=== PATIENT | female | born 1980 | race Caucasian/White ===

== ENCOUNTER 2021-11-29 11:21 | Outpatient (REF) | payer OTHER, SELFPAY | END 2021-11-29 11:22 | disposition home or self-care (01) | LOC: HO.LNP 11:21 | PROVIDERS: Visit Provider Internal Medicine | DX: N39.0 Urinary tract infection, site not specified (principal) | CPT/HCPCS: 87086 ==

== ENCOUNTER 2022-01-21 12:51 | Outpatient (REF) | payer OTHER, SELFPAY ==
[2022-01-21 13:19] LABS: Binax Internal Control QC Valid; Binax Now Covid-19 Ag Negative (Negative)
== END 2022-01-21 12:52 | disposition home or self-care (01) ==
LOC: HO.HMGCLDS 12:51
PROVIDERS: Visit Provider Physician Assistant Medical
DX: Z20.822 Contact with and (suspected) exposure to COVID-19 (principal)
CPT/HCPCS: 87811; C9803

== ENCOUNTER 2024-08-28 11:43 | Outpatient (AMB) | payer OTHER, MEDICAID, SELFPAY ==
--- NOTE | 2024-08-28 12:47 | MHC.OFFWIV ---
Intake Vital Signs 08/28/24 12:54 BP 122/84 Blood Pressure Location Lt brachial Position Sitting Pulse 68 Pulse Source Pulse Oximeter Pulse Oximetry (%) 97 Oxygen Delivery Method Room Air Intake Visit Reasons: EP-chest pain,sob cough,sinus [id number] Intake Note: Patient here for chest pain/tightness, bilat ear pain, cough, sinus pressure and body aches which started Monday. Patient Tobacco Use Status: Never used Tobacco Allergies glatiramer (copolymer 1) [Copaxone] Allergy (Unknown, Verified 08/28/24 12:48) Anaphylaxis No Known Allergies [No Known Allergies*] Allergy (Unverified 08/28/24 12:48) Do you need a note to return to daycare/school/sports/work: No HPI HPI Comments History of Present Illness Details Patient is a 44yo F who presents for cough/cold symptoms She has hx of MS and is on immunosuppresant meds Her boyfriend had PNA and she had exposure She states symptoms x 3 days + body aches, fatigue, cough + shooting pain in body that she said is different than body aches (like sciatic nerve pain) L lower leg > R side No urine or bowel complaints. Denies nausea or vomiting Cough is dry + congestion with post nasal drip, ST CPAP use She has tried mucinex and cold/flu medicine [facility] Social History Patient Tobacco Use Status: Never used Tobacco Review of Systems Const Reports body aches and Reports fatigue ENT Denies dizziness, Reports otalgia, Reports nasal congestion, Reports sore throat and Denies throat swelling Card Denies chest pain and Denies syncope Resp Denies change in phlegm color, Reports cough and Denies pain with cough GI Denies abdominal pain, Denies constipation, Denies GI cramping, Denies diarrhea, Denies nausea and Denies vomiting Musc Reports myalgias Skin/Breast Denies rash Neuro Denies dizziness and Denies syncope Endo Reports fatigue Aller/Immun Denies throat swelling Physical Exam Vital Signs: Last Vital Signs Pulse 68 08/28/24 12:54 BP 122/84 08/28/24 12:54 Pulse Ox 97 08/28/24 12:54 Oxygen Delivery Method Room Air 08/28/24 12:54 General: Non-toxic, NAD. Speaking full sentences. Skin: Warm dry throughout Eye: EOMI HENT: Airway patent. Uvula midline. No pharyngeal erythema or edema. No MATTRESS RENOVATOR. L Tm slight erythema without bulging or perforation. R TM non-erythematous, + slight fluid. Bilateral canals clear. No TM perforation or hemotympanum noted. Respiratory: Poor aeration but otherwise, CTA bilaterally. No wheezes, rales or rhonchi Cardiac: RRR. No murmurShifted from seat to bed without difficulty. Neurology: Alert. No aphasia or facial droop. Gait without abnormality Psych: Good mood and affect Assessment & Plan Assessment & Plan (1) Cough: Code(s): R05.9 - Cough, unspecified Qualifiers: Cough type: acute Qualified Code(s): R05.1 - Acute cough Plan: Patient seen and evaluated. Chest xray: negative Tessalon for cough Tylenol for fever/discomfort FU with PCP Increase fluids/rest Temp was 98.2 in office by my oral measurement Patient gave verbal understanding and had no additional questions or concerns at time of discharge All questions answered Orders: Orders SARS-CoV2/FLU/RSV Today R05.1 - Acute cough XR chest 2V Today R05.9 - Cough, unspecified Medications: New benzonatate 100 mg PO BID-TID PRN 14 caps 0RF cough Coding Level of Care Code Est Pt Level 3 (84576) Diagnoses Acute cough R05.1 Cough type: acute
[2024-08-28 12:54] VITALS: BP 122/84; PULSE 68; O2SAT 97
--- OUTSIDE RECORDS SUMMARY | 2024-08-28 14:10 | XMS_ITS | Encounter Summary ---
Author Organization [facility] Address [address] [place] [address] Care Team Providers Care Kennel Attendant Name Role Phone Stephany Elise MD Primary Care Provider James Bear Primary Care Provider Stephany De La Torre MD Primary Care Provider Kamlesh Sanchez MD Primary Care Provider Jorden Padgett Primary Care Provider [phone] Maida Ann MD Primary Care Provider + Reason for Visit * Reason Onset Date Comments refill request 12/29/2017 Encounter Details Date Type Department Care Team Description 12/29/2017 Refill Adult Medicine [address] [address] Stephany Elise MD refill request Social History Tobacco Use Types Packs/Day Years Used Date Smoking Tobacco: Never Smokeless Tobacco: Never Alcohol Use Standard Drinks/Week Comments No 0 (1 standard drink = 0.6 oz pur e alcohol) Physical Activity Answer Date Recorded On average, how many days pe r week do you engage in moderate to strenuous exercise (like walking fast, running, jogging, dancing, swimming, biking, or other activities that cause a light or heavy sweat)? 0 days 02/21/2020 On average, how many minutes do you engage in exercise at this level? 0 min 02/21/2020 Stress Answer Date Recorded Do you feel stress - tense, restless, nervous, or anxious, or unable to sleep at night because your mind is troubled all the time - these days? Not at all 02/21/2020 Intimate Partner Violence Answer Date R ecorded Within the last year, have y ou been afraid of your partner or ex-partner? No 02/21/2020 Within the last year, have y ou been humiliated or emotionally abused in other ways by your partner or ex-partner? No Within the last year, have y ou been kicked, hit, slapped, or otherwise physically hurt by your partner or ex-partner? No 02/21/2020 Within the last year, have y ou been raped or forced to have any kind of sexual activity by your partner or ex-partner? No 02/21/2020 Sex Assigned at Date Recorded Female 02/05/2023 12:02 PM EDT Job Start Date Occupation Industry Not on file Not on file Not on file documented as of this encounter Miscellaneous Notes * Telephone Encounter - Mahogany Boswell - 12/29/2017 11:03 AM EDT Patient would like script to be: E-PRESCRIBED/FAXED TO PHARMACY WHEN WAS THE PATIENT'S LAST APPOINTMENT IN ADULT MEDICINE?06/05/2017 WHEN WAS THE LAST TIME THE PATIENT SAW THEIR PCP? 04/06/2017 Does patient have an upcoming appointment? Yes 12/30/2017 (THE MEDICATION REQUESTED IS ON THE MED LIST ABOVE) All of the medications requested were on the CURRENT MEDS list Did you check the Pharmacy information above?: YES Patient wants: 30 -day supply Is this a mail order prescription request ? NO Patients current insurance carrier is: Payor: [employer] / Plan: [employer] / Product Type: MEDICAID RISK documented in this encounter Plan of Treatment Not on file documented as of this encounter Visit Diagnoses Not on filedocumented in this encounter Additional Health Concerns Infection Onset Date Last Indicated Resolved Time COVID-19 Comment:Sx's started 05/23/22 tested + 05/25/22 05/25/2022 06/08/2022 10/09/2023 9:12 AM E DT documented as of this encounter Care Teams Kennel Attendant Relationship Specialty Start Date End Date Stephany Elise MD PCP - General 03/31/11 04/17/18 James Gomez PCP - General Internal Medicine 04/18/18 09/10/18 Stephany Elise MD PCP - General Internal Medicine 09/11/18 03/11/21 Kamlesh Patel MD PCP - General Internal Medicine 03/12/21 03/07/22 Jorden Kramer [address] [place] [id number] PCP - General Internal Medicine 03/08/22 03/08/22 Maida Ann MD [address] [place] [address] PCP - General Internal Medicine 03/09/22 documented as of this encounter
--- OUTSIDE RECORDS SUMMARY | 2024-08-28 14:10 | XMS_ITS | Encounter Summary ---
Author Organization [facility] Address [address] [place] [address] Care Team Providers Care Nanofabrication Specialist Name Role Phone Stephany Elise MD Primary Care Provider James Bear Primary Care Provider Stephany De La Torre MD Primary Care Provider Kamlesh Sanchez MD Primary Care Provider Jorden Padgett Primary Care Provider [phone] Maida Ann MD Primary Care Provider + Encounter Details Date Type Department Care Team Description 03/08/2017 Unemployment Inspector Report Medical Records [address] [place] [id number] Humble Rosario MD Social History Tobacco Use Types Packs/Day Years [...] on file documented as of this encounter Plan of Treatment Not on file documented as of this encounter Visit Diagnoses Not on filedocumented in this encounter Additional Health Concerns Infection Onset Date Last Indicated Resolved Time COVID-19 Comment:Sx's started 05/23/22 tested + 05/25/22 05/25/2022 06/08/2022 10/09/2023 9:12 AM E DT documented as of this encounter Care Teams Nanofabrication Specialist Relationship Specialty Start Date End Date Stephany Elise MD PCP - General 03/31/11 04/17/18 James Gomez PCP - General Internal Medicine 04/18/18 09/10/18 Stephany Elise MD PCP - General Internal Medicine 09/11/18 03/11/21 Kamlesh Patel MD PCP - General Internal Medicine 03/12/21 03/07/22 Jorden Kramer [address] [place] [address] PCP - General Internal Medicine 03/08/22 03/08/22 Maida Ann MD [address] [place] [address] PCP - General Internal Medicine 03/09/22 documented as of this encounter
--- OUTSIDE RECORDS SUMMARY | 2024-08-28 14:10 | XMS_ITS | Encounter Summary ---
Author Organization [facility] Address [address] [facility] [place] [address] Care Team Providers Care Computer Equipment Installer Name Role Phone Maida Ann MD Primary Care Provider + Encounter Details Date Type Department Care Team Description 12/12/2022 Pt. Non Urgent Medical Question Adult Medicine [facility] [address] [place] [phone] Maida Ann MD [address] [place], [place] [phone] Social History Tobacco Use Types Packs/Day Years [...] file Not on file Not on file COVID-19 Exposure Response Date Recorded In the last 10 days, have yo u been in contact with someone who was confirmed or suspected to have Coronavirus/COVID-19? No / Unsure 11/21/2022 1:38 PM EDT documented as of this encounter Miscellaneous Notes * Telephone Encounter - Brooklyn Chanel M.A. - 12/13/2022 8:45 AM EDTFrom: Shanice Ponce To: Elke Ann Sent: 12/12/2022 7:00 PM EDT Subject: Body pain I think I over did it and I am in a lot of pain and can barely move. I have tried everything over the counter is there anything that can do done. I know it is my ms but it is effecting my life all I do is lay in bed documented in this encounter Plan of Treatment Not on file documented as of this encounter Visit Diagnoses Not on filedocumented in this encounter Additional Health Concerns Infection Onset Date Last Indicated Resolved Time COVID-19 Comment:Sx's started 05/23/22 tested + 05/25/22 05/25/2022 06/08/2022 10/09/2023 9:12 AM E DT documented as of this encounter Care Teams Computer Equipment Installer Relationship Specialty Start Date End Date Maida Ann MD [address] [place] [address] PCP - General Internal Medicine 03/09/22 documented as of this encounter
--- OUTSIDE RECORDS SUMMARY | 2024-08-28 14:10 | XMS_ITS | Encounter Summary ---
Author Organization [facility] Address [address] [place] [address] Care Team Providers Care Street Light Servicer Name Role Phone Maida Ann MD Primary Care Pr ovider Reason for Referral * Consultation (Routine) - Authorized Specialty Diagnoses / Procedures Referred By Contac t Referred To Contact Nephrology Diagnoses Type 2 diabetes mellitus with microalbuminuria ([facility]/HCC) Maida Ann MD [address] [place] [address] [facility] Nephrology [address] Referral ID Status Reason Start Date Expiration Date Visits Requested Visits Authorized [id number] Authorized Specialty Services Required 08/27/2024 08/27/2025 1 1 Encounter Details Date Type Department Care Team (Late st Contact Info) Description 08/27/2024 Telephone Adult Medicine [address] [phone] Maida Ann MD [address] [place] [address] Social History Tobacco Use Types Packs/Day Years Used Date Smoking Tobacco: Never Smokeless Tobacco: Never Alcohol Use Standard Drinks/Week Comments No 0 (1 standard drink = 0.6 oz pur e alcohol) Sex and Gender Information Value Date Recorded Sex Assigned at Not on file Gender Identity Not on file Sexual Orientation Not on file Job Start Date Occupation Industry Not on file Not on file Not on file documented as of this encounter Progress Notes * Wendy Aleman RN - 08/27/2024 5:10 PM EST Called pt +ID on advised referral placed and to call or mychart back with any other questions orconcerns * Maida Ann MD - 08/27/2024 4:59 PM EST Referral placed. documented in this encounter Plan of Treatment Upcoming Encounters Date Type Department Care Team (Late st Contact Info) Description 11/05/2024 2:00 PM EDT Consult Urogynecology [address] [phone] Sandra Monk MD [address] [facility] [address] [place] [address] 12/19/2024 10:30 AM EDT Office Visit Pulmonolgy - [place] [address] [facility] [address] [place] [address] Milady Hogan NP [address] [facility] [address] [place] [address] Scheduled Referrals Name Type Priority Associated Diagnoses Orde r Schedule Ambulatory referral to Nephrology Outpatient Referral Routine 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) 1 Occurrences starting 08/27/2024 until 08/27/2025 documented as of this encounter Visit Diagnoses Diagnosis 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)- Primary documented in this encounter Care Teams Street Light Servicer Relationship Specialty Start Date End Date Maida Ann MD [address] [place], [place] PCP - General Internal Medicine 03/09/22 documented as of this encounter
--- OUTSIDE RECORDS SUMMARY | 2024-08-28 14:10 | XMS_ITS | Encounter Summary ---
Author Organization [facility] Address [address] [place] [address] Care Team Providers Care Reed Polisher Name Role Phone Stephany Elise MD Primary Care Provider James Bear Primary Care Provider Stephany De La Torre MD Primary Care Provider Kamlesh Sanchez MD Primary Care Provider Jorden Padgett Primary Care Provider [phone] Maida Ann MD Primary Care Provider + Reason for Visit * Reason Onset Date Comments Provider Call Back 12/12/2016 Encounter Details Date Type Department Care Team Description 12/12/2016 Telephone Adult [address] [address] Stephany Elise MD Provider Call Back Social History Tobacco Use Types Packs/Day Years [...] encounter Miscellaneous Notes * Telephone Encounter - Chela Kwon R.N. - 12/13/2016 10:20 AM EDT Returned pt's call left voice message. * Telephone Encounter - Chela Kwon R.N. - 12/12/2016 4:22 PM EDT Returned patient call, left voice message for patient to call back * Telephone Encounter - Isabel Deras M.A. - 12/12/2016 2:58 PM EDT Please triage * Telephone Encounter - Sophy Green - 12/12/2016 10:29 AM EDT Caller requesting call back from provider: Is the caller the patient? YES If caller is not the patient, what is the callers name? N/A Callers relationship to patient? N/A If person calling is not the patient themselves, is there a verbal release in FYI or permanent comments for this person: NO Reason for call back: Patient went to [facility] ER on 12/09/16 and was diagnosed with a fracture onher left leg and was given a boot to wear. She was told to see an orthopedic Dr zambrano. When she called today they are not able to get her in to be seen today and she doesn't have a note to be out of work. She was told to call her pcp office to get a note. She states that she cannot walk and it hurts to put weight on the left side plus she has MS and cannot be coming up our ramp to be seen to get aDr note. She is looking for a call back juan manuel to see what we are able to do for her. Caller offered to speak with the nurse for assistance: YES Response: Patient offered to speak with nurse for assistance and patient agreed. Message forwarded to nurse. documented in this encounter Plan of Treatment Not on file documented as of this encounter Visit Diagnoses Not on filedocumented in this encounter Additional Health Concerns Infection Onset Date Last Indicated Resolved Time COVID-19 Comment:Sx's started 05/23/22 tested + 05/25/22 05/25/2022 06/08/2022 10/09/2023 9:12 AM E DT documented as of this encounter Care Teams Reed Polisher Relationship Specialty Start Date End Date Stephany Elise MD PCP - General 03/31/11 04/17/18 James Gomez PCP - General Internal Medicine 04/18/18 09/10/18 Stephany Elise MD PCP - General Internal Medicine 09/11/18 03/11/21 Kamlesh Patel MD PCP - General Internal Medicine 03/12/21 03/07/22 Jorden Kramer [address] [place] [id number] PCP - General Internal Medicine 03/08/22 03/08/22 Maida Ann MD [address] [place] [id number] PCP - General Internal Medicine 03/09/22 documented as of this encounter
--- OUTSIDE RECORDS SUMMARY | 2024-08-28 14:10 | XMS_ITS | Encounter Summary ---
Author Organization [facility] Address [address] [place] [address] Care Team Providers Care Carpenter And Joiner Name Role Phone Stephany Elise MD Primary Care Provider James Bear Primary Care Provider Stephany De La Torre MD Primary Care Provider Kamlesh Sanchez MD Primary Care Provider Jorden Padgett Primary Care Provider [phone] Maida Ann MD Primary Care Provider + Reason for Visit * Reason Comments E-prescribe Rx Request Encounter Details Date Type Department Care Team Description 11/07/2017 Refill Adult Medicine [address] [address] Stephany Elise MD E-prescribe Rx Request Social History Tobacco Use Types Packs/Day Years [...] encounter Miscellaneous Notes * Telephone Encounter - Jennifer Blanchard - 11/07/2017 12:13 PM EDT Patient would like script to be: E-PRESCRIBED/FAXED TO PHARMACY WHEN WAS THE PATIENT'S LAST APPOINTMENT IN ADULT MEDICINE? 06/05/17 WHEN WAS THE LAST TIME THE PATIENT SAW THEIR PCP? 04/06/17 Does patient have an upcoming appointment? No-unable to reach [facility] to call for appointment due to refill request. Appt due (THE MEDICATION REQUESTED IS ON THE MED LIST ABOVE) All of the medications requested were on the CURRENT MEDS list Did you check the Pharmacy information above?: YES Patient wants: 30 -day supply Is this a mail order prescription request ? NO Patients current insurance carrier is: Payor: [facility] MEDICAID / Plan: [employer] MEDICAID HMO $0 [employer] / Product Type: HMO [id number] documented in this encounter Plan of Treatment Not on file documented as of this encounter Visit Diagnoses Not on filedocumented in this encounter Additional Health Concerns Infection Onset Date Last Indicated Resolved Time COVID-19 Comment:Sx's started 05/23/22 tested + 05/25/22 05/25/2022 06/08/2022 10/09/2023 9:12 AM E DT documented as of this encounter Care Teams Carpenter And Joiner Relationship Specialty Start Date End Date Stephany Elise MD PCP - General 03/31/11 04/17/18 James Gomez PCP - General Internal Medicine 04/18/18 09/10/18 Stephany lEise MD PCP - General Internal Medicine 09/11/18 03/11/21 Kamlesh Patel MD PCP - General Internal Medicine 03/12/21 03/07/22 Jorden Kramer [address] [place] [address] PCP - General Internal Medicine 03/08/22 03/08/22 Maida Ann MD [address] [place] [address] PCP - General Internal Medicine 03/09/22 documented as of this encounter
--- OUTSIDE RECORDS SUMMARY | 2024-08-28 14:10 | XMS_ITS | Encounter Summary ---
Author Organization [facility] Address [address] [place] [address] Care Team Providers Care Veterinary Technology Instructor Name Role Phone Stephany Elise MD Primary Care Provider James Bear Primary Care Provider Stephany De La Torre MD Primary Care Provider Kamlesh Sanchez MD Primary Care Provider Jorden Padgett Primary Care Provider [phone] Maida Ann MD Primary Care Provider + Reason for Visit * Reason Comments E-prescribe Rx Request Encounter Details Date Type Department Care Team Description 12/08/2016 Refill Dermatology [address] [place] [address] Ajit Brown PA-C E-prescribe Rx Request Social History Tobacco Use [...] encounter Miscellaneous Notes * Telephone Encounter - Ban Stiles C.M.A. - 01/06/2017 10:28 AM EDT I left a message for the patient to return my call. * Telephone Encounter - Ban Stiles C.M.A. - 12/14/2016 12:45 PM EDT left a message for the patient to return my call and let me know. * Telephone Encounter - Ban Stiles C.M.A. - 12/12/2016 3:37 PM EDT I left a message for the patient to return my call and let me know. * Telephone Encounter - Ajit Brown PA-C - 12/12/2016 3:34 PM EDT Please make sure the patient has had an eye exam within the last 2 years and that they have checkedher eye pressure to check on glaucoma ....... thanks * Telephone Encounter - Ban Stiles C.M.A. - 12/12/2016 3:10 PM EDT Pt said she is taking glycopyrrolate TID and it is working good. It's not perfect but, it's not pouring like it used to. documented in this encounter Plan of Treatment Not on file documented as of this encounter Visit Diagnoses Not on filedocumented in this encounter Additional Health Concerns Infection Onset Date Last Indicated Resolved Time COVID-19 Comment:Sx's started 05/23/22 tested + 05/25/22 05/25/2022 06/08/2022 10/09/2023 9:12 AM E DT documented as of this encounter Care Teams Veterinary Technology Instructor Relationship Specialty Start Date End Date Stephany Elise MD PCP - General 03/31/11 04/17/18 James Gomez PCP - General Internal Medicine 04/18/18 09/10/18 Stephany Elise MD PCP - General Internal Medicine 09/11/18 03/11/21 Kamlesh Patel MD PCP - General Internal Medicine 03/12/21 03/07/22 Jorden Kramer [address] [place] [id number] PCP - General Internal Medicine 03/08/22 03/08/22 Maida Ann MD [address] [place] [id number] PCP - General Internal Medicine 03/09/22 documented as of this encounter
--- OUTSIDE RECORDS SUMMARY | 2024-08-28 14:10 | XMS_ITS | Encounter Summary ---
Author Organization [facility] Address [address] [place] [address] Care Team Providers Care Stave Block Roller Name Role Phone Stephany Elise MD Primary Care Provider James Bear Primary Care Provider Stephany De La Torre MD Primary Care Provider Kamlesh Sanchez MD Primary Care Provider Jorden Padgett Primary Care Provider [phone] Maida Ann MD Primary Care Provider + Reason for Visit * Reason Onset Date Comments Electronics Technician Feedback 04/10/2017 Weight Managemen t Encounter Details Date Type Department Care Team Description 04/10/2017 Telephone Adult [address] [address] Stephany Elise MD Electronics Technician Feedback (Weight Management) Social History Tobacco Use Types Packs/Day Years [...] encounter Miscellaneous Notes * Telephone Encounter - Stephany Elise MD - 04/11/2017 6:08 PM EDT done * Telephone Encounter - Inez Malin - 04/10/2017 11:[address] Elise You recently referred this patient to see Weight Management. I am unable to finish processing this referral request as your notes are not complete. Please let me know when notes are complete so I canmove forward. Thank You, Inez Petit Referrals Coordinator [facility]. documented in this encounter Plan of Treatment Not on file documented as of this encounter Visit Diagnoses Not on filedocumented in this encounter Additional Health Concerns Infection Onset Date Last Indicated Resolved Time COVID-19 Comment:Sx's started 05/23/22 tested + 05/25/22 05/25/2022 06/08/2022 10/09/2023 9:12 AM E DT documented as of this encounter Care Teams Stave Block Roller Relationship Specialty Start Date End Date Stephany Elise MD PCP - General 03/31/11 04/17/18 James Gomez PCP - General Internal Medicine 04/18/18 09/10/18 Stephany Elise MD PCP - General Internal Medicine 09/11/18 03/11/21 Kamlesh Patel MD PCP - General Internal Medicine 03/12/21 03/07/22 Jorden Kramer [address] [place] [phone] PCP - General Internal Medicine 03/08/22 03/08/22 Maida Ann MD [address] [place] [phone] PCP - General Internal Medicine 03/09/22 documented as of this encounter
--- OUTSIDE RECORDS SUMMARY | 2024-08-28 14:10 | XMS_ITS | Encounter Summary ---
Author Organization [facility] Address [address] [place] [address] Care Team Providers Care Physical Director Name Role Phone Stephany Elise MD Primary Care Provider James Bear Primary Care Provider Stephany De La Torre MD Primary Care Provider Kamlesh Sanchez MD Primary Care Provider Jorden Padgett Primary Care Provider [phone] Maida Ann MD Primary Care Provider + Encounter Details Date Type Department Care Team Description 05/17/2017 Release of Information Medical Records [address] [place] [id number] Abstract, Provider Social History Tobacco Use Types Packs/Day Years [...] documented as of this encounter Care Teams Physical Director Relationship Specialty Start Date End Date Stephany Elise MD PCP - General 03/31/11 04/17/18 James Gomez PCP - General Internal Medicine 04/18/18 09/10/18 Stephany Elise MD PCP - General Internal Medicine 09/11/18 03/11/21 Kamlesh Patel MD PCP - General Internal Medicine 03/12/21 03/07/22 Jorden Kramer [address] [place] [id number] PCP - General Internal Medicine 03/08/22 03/08/22 Maida Ann MD [address] [place] [address] PCP - General Internal Medicine 03/09/22 documented as of this encounter
--- OUTSIDE RECORDS SUMMARY | 2024-08-28 14:10 | XMS_ITS | Encounter Summary ---
Author Organization [facility] Address [address] [facility] [place] [address] Care Team Providers Care Central Office Operator Supervisor Name Role Phone Maida Ann MD Primary Care Provider + Reason for Visit * Reason Onset Date Comments Prior Authorization 01/26/2023 Encounter Details Date Type Department Care Team Description 01/26/2023 Telephone Adult Medicine [facility] [address] [place] [id number] Maida Ann MD [address] [place] [address] [id number] Prior Authorization Social History Tobacco Use Types Packs/Day Years [...] suspected to have Coronavirus/COVID-19? No / Unsure 01/19/2023 3:01 PM EDT documented as of this encounter Miscellaneous Notes * Telephone Encounter - Arianna Aviles M.A. - 01/26/2023 3:34 PM EDT Auth approved Exp 01/26/24 Faxed to pharm Arianna Guerra Auth Dep Ext [id number] * Telephone Encounter - Arianna Aviles M.A. - 01/26/2023 11:28 AM EDT Auth sent with cover my meds Dx:asthma Tried pro air Arianna Aviles Prior Auth Dep Ext [id number] * Telephone Encounter - Albert Byrd - 01/26/2023 8:04 AM EDT Prior Authorization for Medication-do not complete and send this encounter unless you have the fax from the pharmacy. Is this a Cover My Meds request: Yes -- Cash Code [id number] Name of Medication Albuterol Sulfate (ProAir RespiClick) 108 (90 Base) MCG/ACT AEROSOL POWDER,BREATH ACTIVATED Dose of Medication 108 (90 Base) MCG/ACT AEROSOL POWDER,BREATH ACTIVATED What is the RX # from the faxed refill? Not on form How does patient take this med? Not on form What Pharmacy did the fax come from: [facility] fax #: [phone] [employer] Information from fax: What Prescription Plan does the patient have? Not on form BIN/PCN if applicable: Not on form Cardholder ID:Not on form Person Code: Not on form Relationship Code: Not on form Help desk phone: Not on form documented in this encounter Plan of Treatment Not on file documented as of this encounter Visit Diagnoses Not on filedocumented in this encounter Additional Health Concerns Infection Onset Date Last Indicated Resolved Time COVID-19 Comment:Sx's started 05/23/22 tested + 05/25/22 05/25/2022 06/08/2022 10/09/2023 9:12 AM E DT documented as of this encounter Care Teams Central Office Operator Supervisor Relationship Specialty Start Date End Date Maida Ann MD [address] [place] [id number] PCP - General Internal Medicine 03/09/22 documented as of this encounter
--- OUTSIDE RECORDS SUMMARY | 2024-08-28 14:10 | XMS_ITS | Encounter Summary ---
Author Organization [facility] Address [address] [place] [address] Care Team Providers Care Armed Guard Name Role Phone Stephany Elise MD Primary Care Provider Kamlesh Sanchez MD Primary Care Provider Jorden Padgett Primary Care Provider Maida Ann MD Primary Care Provider + Reason for Visit * Reason Onset Date Comments APPOINTMENT 03/10/2021 pt needs to rene se a new PCP and schedule med fu appt Encounter Details Date Type Department Care Team Description 03/10/2021 Telephone Adult [address] [address] Stephany Elise MD APPOINTMENT (pt needs to choose a new PCP and schedule med fu appt) Social History Tobacco Use Types Packs/Day Years [...] encounter Miscellaneous Notes * Telephone Encounter - Vidya Singleton - 03/12/2021 10:51 AM EDT APPOINTMENT ON 03/24/2021 WITH RUSSELL CRAWFORD. * Telephone Encounter - Vidya Singleton - 03/11/2021 2:12 PM EDT I LEFT A MESSAGE TO CALL OFFICE BACK AND SCHEDULE APPOINTMENT WITH NEW PCP. documented in this encounter Plan of Treatment Not on file documented as of this encounter Visit Diagnoses Not on filedocumented in this encounter Additional Health Concerns Infection Onset Date Last Indicated Resolved Time COVID-19 Comment:Sx's started 05/23/22 tested + 05/25/22 05/25/2022 06/08/2022 10/09/2023 9:12 AM E DT documented as of this encounter Care Teams Armed Guard Relationship Specialty Start Date End Date Stephany Elise MD PCP - General Internal Medicine 09/11/18 03/11/21 Kamlesh Patel MD PCP - General Internal Medicine 03/12/21 03/07/22 Jorden Kramer [address] [place] [address] PCP - General Internal Medicine 03/08/22 03/08/22 Maida Ann MD [address] [place] [address] PCP - General Internal Medicine 03/09/22 documented as of this encounter
--- OUTSIDE RECORDS SUMMARY | 2024-08-28 14:10 | XMS_ITS | Encounter Summary ---
Author Organization [facility] Address [address] [place] [address] Care Team Providers Care Senior Engineering Associate Name Role Phone Kamlesh Patel MD Primary Care Provider Jorden Padgett Primary Care Provider [phone] Maida Ann MD Primary Care Provider + Reason for Visit * Reason Comments E-prescribe Rx Request Encounter Details Date Type Department Care Team Description 04/04/2021 Refill Adult Medicine [address] [address] Luz Galindo PA-C [address] [place] [address] [id number] E-prescribe Rx Request Social History Tobacco Use [...] Exposure Response Date Recorded In the last month, have you been in contact with someone who was confirmed or suspected to have Coronavirus / COVID-19? Unable to assess 03/24/2021 8:14 AM EDT documented as of this encounter Miscellaneous Notes * Telephone Encounter - Alysia Catherine M.A. - 04/07/2021 2:26 PM EDT Lab Results Component Value Date NA 139 12/21/2020 K 4.1 12/21/2020 CO2 31 12/21/2020 CL 104 12/21/2020 BUN 13 12/21/2020 CREAT 0.67 12/21/2020 GLU 110 12/21/2020 CA 9.0 12/21/2020 GFR > 60 12/21/2020 Pending appt with pcp 07/15/21 * Telephone Encounter - Jillian Chan - 04/06/2021 3:52 PM EDT Patient would like script to be: E-PRESCRIBED/FAXED TO PHARMACY WHEN WAS THE PATIENT'S LAST APPOINTMENT IN ADULT MEDICINE? 03/24/2021 WHEN WAS THE LAST TIME THE PATIENT SAW THEIR PCP? 10/19/2019 Does patient have an upcoming appointment? Yes 07/15/2021 (THE MEDICATION REQUESTED IS ON THE MED LIST ABOVE) All of the medications requested were on the CURRENT MEDS list Did you check the Pharmacy information above?: YES Patient wants: 90 -day supply Is this a mail order prescription request ? NO If the refill is from a FAXED refill request what is the RX # listed on the fax? N/A Patients current insurance carrier is: Payor: [employer] FFS / Plan: [employer] ALLIANCE / Product Type: MEDICAID RISK documented in this encounter Plan of Treatment Not on file documented as of this encounter Visit Diagnoses Not on filedocumented in this encounter Additional Health Concerns Infection Onset Date Last Indicated Resolved Time COVID-19 Comment:Sx's started 05/23/22 tested + 05/25/22 05/25/2022 06/08/2022 10/09/2023 9:12 AM E DT documented as of this encounter Care Teams Senior Engineering Associate Relationship Specialty Start Date End Date Kamlesh Patel MD PCP - General Internal Medicine 03/12/21 03/07/22 Jorden Kramer [address] [place] [id number] PCP - General Internal Medicine 03/08/22 03/08/22 Maida Ann MD [address] [place] [id number] PCP - General Internal Medicine 03/09/22 documented as of this encounter
--- OUTSIDE RECORDS SUMMARY | 2024-08-28 14:10 | XMS_ITS | Encounter Summary ---
Author Organization [facility] Address [address] [place] [address] Care Team Providers Care Technical Staff Engineer Name Role Phone Stephany Elise MD Primary Care Provider Kamlesh Sanchez MD Primary Care Provider Jorden Padgett Primary Care Provider [phone] Maida Ann MD Primary Care Provider + Reason for Visit * Reason Onset Date Comments Faxed Refill 06/03/2020 Encounter Details Date Type Department Care Team Description 06/03/2020 Refill Adult Medicine [address] [address] Stephany Elise MD Faxed Refill Social History Tobacco Use Types Packs/Day Years [...] encounter Miscellaneous Notes * Telephone Encounter - Naida Hemphill M.A. - 06/03/2020 9:44 AM EST Lab Results Component Value Date NA 137 05/10/2019 K 4.2 05/10/2019 CO2 30 05/10/2019 CL 103 05/10/2019 BUN 11 05/10/2019 CREAT 0.64 05/10/2019 GLU 110 07/11/2019 CA 8.9 05/10/2019 GFR > 60 05/10/2019 * Telephone Encounter - Jennifer Meneses - 06/03/2020 9:40 AM EST Patient would like script to be: E-PRESCRIBED/FAXED TO PHARMACY ?? WHEN WAS THE PATIENT'S LAST APPOINTMENT IN ADULT MEDICINE? 02/15/2020 ?? WHEN WAS THE LAST TIME THE PATIENT SAW THEIR PCP? 04/06/17 ?? Does patient have an upcoming appointment? Yes ?? (THE MEDICATION REQUESTED IS ON THE MED LIST ABOVE) All of the medications requested were on the CURRENT MEDS list ?? Did you check the Pharmacy information above?: YES ?? Patient wants: 30 -day supply ?? Is this a mail order prescription request ? NO ?? If the refill is from a FAXED refill request what is the RX # listed on the fax? N/A ?? Patients current insurance carrier is: Payor: [employer] / Plan: [employer] / Product Type: MEDICAID RISK ? documented in this encounter Plan of Treatment Not on file documented as of this encounter Visit Diagnoses Not on filedocumented in this encounter Additional Health Concerns Infection Onset Date Last Indicated Resolved Time COVID-19 Comment:Sx's started 05/23/22 tested + 05/25/22 05/25/2022 06/08/2022 10/09/2023 9:12 AM E DT documented as of this encounter Care Teams Technical Staff Engineer Relationship Specialty Start Date End Date Stephany Elise MD PCP - General Internal Medicine 09/11/18 03/11/21 Kamlesh Patel MD PCP - General Internal Medicine 03/12/21 03/07/22 Jorden Kramer [address] [place] [id number] PCP - General Internal Medicine 03/08/22 03/08/22 Maida Ann MD [address] [place] [id number] PCP - General Internal Medicine 03/09/22 documented as of this encounter
--- OUTSIDE RECORDS SUMMARY | 2024-08-28 14:11 | XMS_ITS | Encounter Summary ---
Author Organization [facility] Address [address] [place] [address] Care Team Providers Care Audiovisual Lead Technician Name Role Phone Stephany Elise MD Primary Care Provider James Bear Primary Care Provider Stephany De La Torre MD Primary Care Provider Kamlesh Sanchez MD Primary Care Provider Jorden Padgett Primary Care Provider [phone] Maida Ann MD Primary Care Provider + Reason for Visit * Reason Comments E-prescribe Rx Request Encounter Details Date Type Department Care Team Description 02/14/2018 Refill Adult Medicine [address] [address] Stephany Elise MD E-prescribe Rx Request Social [...] encounter Miscellaneous Notes * Telephone Encounter - Calli Jones M.A. - 02/15/2018 10:50 AM EDT Sick visit 12/30/17 * Telephone Encounter - Tomeka Mcdonald - 02/14/2018 8:14 AM EDT Patient would like script to be: E-PRESCRIBED/FAXED TO PHARMACY WHEN WAS THE PATIENT'S LAST APPOINTMENT IN ADULT MEDICINE? 12/30/17 WHEN WAS THE LAST TIME THE PATIENT SAW THEIR PCP? 04/06/17 Does patient have an upcoming appointment? No-patient refused appointment, will call back to book appointment (THE MEDICATION REQUESTED IS ON THE MED [...] N/A Patients current insurance carrier is: Payor: [employer] FFS / Plan: [employer]IANCE / Product Type: MEDICAID RISK documented in this encounter Plan of Treatment Not on file documented as of this encounter Visit Diagnoses Not on filedocumented in this encounter Additional Health Concerns Infection Onset Date Last Indicated Resolved Time COVID-19 Comment:Sx's started 05/23/22 tested + 05/25/22 05/25/2022 06/08/2022 10/09/2023 9:12 AM E DT documented as of this encounter Care Teams Audiovisual Lead Technician Relationship Specialty Start Date End Date Stephany Elise MD PCP - General 03/31/11 04/17/18 James Gomez PCP - General Internal Medicine 04/18/18 09/10/18 Stephany Elise MD PCP - General Internal Medicine 09/11/18 03/11/21 Kamlesh Patel MD PCP - General Internal Medicine 03/12/21 03/07/22 Jorden Kramer [address] [place] [address] PCP - General Internal Medicine 03/08/22 03/08/22 Maida Ann MD [address] [place] [address] PCP - General Internal Medicine 03/09/22 documented as of this encounter
--- OUTSIDE RECORDS SUMMARY | 2024-08-28 14:11 | XMS_ITS | Encounter Summary ---
Author Organization [facility] Address [address] [place] [address] Care Team Providers Care User Experience Researcher Name Role Phone Stephany Elise MD Primary Care Provider James Bear Primary Care Provider Stephany De La Torre MD Primary Care Provider Kamlesh Sanchez MD Primary Care Provider Jorden Padgett Primary Care Provider [phone] Maida Ann MD Primary Care Provider + Encounter Details Date Type Department Care Team Description 09/04/2014 [facility] Adult [address] [address] Juan Carlos Segovia PA-C Social History Tobacco Use Types Packs/Day Years [...] documented as of this encounter Care Teams User Experience Researcher Relationship Specialty Start Date End Date Stephany Elise MD PCP - General 03/31/11 04/17/18 James Gomez PCP - General Internal Medicine 04/18/18 09/10/18 Stephany Elise MD PCP - General Internal Medicine 09/11/18 03/11/21 Kamlesh Patel MD PCP - General Internal Medicine 03/12/21 03/07/22 Jorden Kramer [address] [place] [phone] PCP - General Internal Medicine 03/08/22 03/08/22 Maida Ann MD [address] [place] [id number] PCP - General Internal Medicine 03/09/22 documented as of this encounter
--- OUTSIDE RECORDS SUMMARY | 2024-08-28 14:11 | XMS_ITS | Clinical Summary ---
Author Organization [facility] [address] [place] [address] [address] [place] [address] Phone Care Team Providers Care Screen Door Maker Name Role Phone Maida Ann MD Primary Care Pr ovider Allergies Active Allergy Reactions Criticality Noted Date Comments Glatiramer Hives 10/18/2014 Medications Medication Sig Dispensed Refills Start Date End Date Status albuterol HFA (Ventolin HFA) 90 mcg/actuation inhaler Inhale 2 Puffs into the lungs 4 times daily as needed for Cough, Wheezing or Shortness of Breath (or chest tightness). 03/14/20 24 Active baclofen (LIORESAL) 5 mg tablet 03/17/20 23 Active cholecalciferol (VITAMIN D-3) 125 mcg (5,000 unit) capsule TAKE 1 CAPSULE BY MOUTH EVERY DAY 07/21/20 23 Active citalopram (CeleXA) 20 mg tablet TAKE 1 TABLET BY MOUTH EVERY DAY 01/03/20 24 Active clobetasoL (TEMOVATE) 0.05 % cream APPLY TO AFFECTED AREA EVERY 2-3 DAYS 10/10/19 24 Active estradioL (ESTRACE) 0.01 % (0.1 mg/gram) vaginal cream Apply a small pea sized amount (0.5 g) to the vaginal opening Monday, Monday, Monday04/03/20 24 025 Active fluticasone propionate (FLONASE) 50 mcg/actuation nasal spray SHAKE LIQUID AND USE 2 SPRAYS IN EACH NOSTRIL DAILY 08/26/19 23 Active furosemide (LASIX) 20 mg tablet TAKE 1 TABLET BY MOUTH DAILY NEEDED (LEG SWELLING). 04/11/20 24 Active norethindrone (AYGESTIN) 5 mg tablet Take 1 Tablet by mouth daily. 02/28/20 24 Active ocrelizumab (Ocrevus) 30 mg/mL solution injection Inject into the vein. Every 6 months 07/01/20 20 Active pramipexole (MIRAPEX) 0.125 mg tablet Take 0.125 mg by mouth at bedtime. Active omeprazole (PriLOSEC) [address] capsule TAKE 1 CAPSULE BY MOUTH EVERYDAY AT BEDTIME 90 capsule 06/05/20 24 Active nitrofurantoin (MACRODANTIN) 100 mg capsule Take 1 capsule (100 mg total) by mouth at bedtime. 06/21/20 24 Active rosuvastatin (CRESTOR) 10 mg tabletIndications:Mi xed hyperlipidemia Take 1 tablet (10 mg total) by mouth 1 (one) time each day. 90 each 1 08/16/19 25 025 Active losartan (Cozaar) 25 mg tabletIndications:Ty pe 2 diabetes mellitus with microalbuminuria (CMS/HCC) Take 1 tablet (25 mg total) by mouth 1 (one) time each day. 90 each 1 08/16/19 25 025 Active tirzepatide (Mounjaro) 5 mg/0.5 mL injectionIndications :Type 2 diabetes mellitus without complication, without long-term current use of insulin (CMS/HCC) Inject 0.5 mL (5 mg total) under the skin every 7 (seven) days. 2 mL 2 08/20/19 25 Active albuterol 2.5 mg /3 mL (0.083 %) nebulizer solution Take 3 mL (2.5 mg total) by nebulization every 4 (four) hours if needed for wheezing. 75 mL 3 08/20/19 25 Active albuterol 2.5 mg /3 mL (0.083 %) nebulizer solution Take 1 Vial by nebulization every 6 hours as needed for Wheezing. 11/27/19 24 025 Discontinued(Re order) tirzepatide (Mounjaro) 2.5 mg/0.5 mL injectionIndications :Type 2 diabetes mellitus with other specified complication, without long-term current use of insulin ([facility]) Inject 0.5 mL (2.5 mg total) under the skin every 7 (seven) days. 2 mL 1 07/29/20 24 025 Discontinued Active Problems Problem Noted Date Diagnosed Date Morbid obesity with BMI of 45.0-49.9, adult 06/30 Assessment & Plan (07/17/2024 8:44 PM EST): Continue mounjaro weekly Surgical menopause 02/28/2024 Overview (05/10/2024): Last Assessment & Plan: Encouraged use of oral Aygestin daily for add back and continue topical estradiol cream vaginally MWF. Assessment & Plan (07/17/2024 8:44 PM EST): s/p hysterectomy Continue vaginal estradiol, aygestin daily prescribed through [facility] Restless leg syndrome 01/03/2024 Assessment & Plan (07/17/2024 8:44 PM EST): Continue Pramipexole nightly Achilles tendon tear, left, initial encounter Assessment & Plan (07/17/2024 8:44 PM EST): She has a hx of left ankle surgery done around November with Dr. Rosario at [facility]. Unfortunately I do not have any records for review. Offered XRAY but she will prefer to follow up with [facility] and will call to schedule an appt Orders: Ambulatory referral to Podiatry; Future Gastroesophageal reflux disease without esophagi tis 06/12/2023 Assessment & Plan (07/17/2024 8:44 PM EST): Continue omeprazole 20 mg nightly Plantar fasciitis of left foot 06/12/2023 Recurrent UTI 06/12/2023 Overview (05/10/2024): Last Assessment & Plan: Will continue to follow with Urology. May like to take a sample prior to surgery to make sure no active infection. Assessment & Plan (07/17/2024 8:44 PM EST): See HPI She will continue macrobid 100mg daily Orders: Ambulatory referral to Urogynecology; Future Pelvic pain 06/01/2023 Overview (05/10/2024): Last Assessment & Plan: Pelvic ultrasound ordered to further evaluate pain. IUD strings visible on exam, however discussed need for US to determine if IUD in in appropriate position. Will also evaluate left ovary for cysts given history of ovarian cyst requiring right oophorectomy in the past. Vulvar dermatitis 06/01/2023 Overview (05/10/2024): Last Assessment & Plan: Rx clobetasol refilled. Gastroparesis 04/18/2023 Irritable bowel syndrome 04/18/2023 Microalbuminuria 04/18/2023 Vitamin D insufficiency 10/25/2022 Assessment & Plan (07/17/2024 8:44 PM EST): Continue on vitamin D 5000U daily Orders: Vitamin D 25 hydroxy; Future Type 2 diabetes mellitus with microalbuminuria 1 Assessment & Plan (07/17/2024 8:44 PM EST): Continue endocrinology follow up and Mounjaro 2.5mg weekly She is up to date with eye exam done this year, will need to obtain records Orders: Microalbumin creatinine urine ratio; Future Hemoglobin A1c; Future Lipid panel with reflex to direct LDL; Future Reactive airway disease 08/28/2020 Assessment & Plan (07/17/2024 8:44 PM EST): Continue follow up with pulmonology. Continue albuterol PRN. Subclinical hypothyroidism 05/14/2019 Assessment & Plan (07/17/2024 8:44 PM EST): Orders: Thyroid stimulating hormone with reflex to free t4 and free t3; Future Anxiety and depression 12/27/2018 Assessment & Plan (07/17/2024 8:44 PM EST): Continue Citalopram 20mg daily. 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 DALE (obstructive sleep apnea) 06/02/2015 Overview (05/10/2024): Dx [facility] - followup there Assessment & Plan (07/17/2024 8:44 PM EST): Continue CPAP nightly Excessive sweating 02/23/2015 Multiple sclerosis, relapsing-remitting 02/24/20 15 Overview (05/10/2024): Abnormalities on MRI 2013 (progression from previous). LP done in 06/2014 at [facility] - positive for MS. Sees Dr. Nona Armstrong at [facility]. Did not tolerate Copaxone and Rebif. On Tecfidera Assessment & Plan (07/17/2024 8:44 PM EST): Continue follow up with [facility] neurology. Continue Ocrevus every 6 months , baclofen 5mg BID Sleep disorder 05/30/2011 Fatty liver 08/12/2009 Overview (05/10/2024): biopsy proven 2003 biopsy proven 2003 NIKKIE (mycobacterium avium-intracellulare) 008 Overview (05/10/2024): 2006 - Seen by Dr. Serrano Other emphysema 03/29/2007 Overview (05/10/2024): Mycobacterium avium intracellulare Saw Dr. Serrano, open lung biopsy and bronchoscopy Resolved Problems Problem Noted Date Diagnosed Date Resolved Date Abnormal uterine bleeding (AUB) 06/01/2023 07/17/2024 Overview (05/10/2024): Last Assessment & Plan: Pt was counseled re: options for treatment of her symptoms including additional oral hormonal therapy and hysterectomy. She was counseled that hysterectomy would stop her bleeding, but there is no guarantee that it will resolve her pelvic pain as the cause of this is not clear. We discussed that we can try to remove the ovarian cysts and the tube, which by US may or may not be dilated. It would be best to keep her ovary for hormonal support, but if she desires to have it removed, will need to be on HRT for another 10 years. She voiced understanding and desires to think more about this part. I discussed risks of surgery and expected recovery. She will need medical clearance and to see if she needs to change anything with Ocrevus perioperatively. Encounters Date Type Department Care Team Description 08/27/2024 Telephone Adult Medicine [address] [phone] Maida Ann MD 08/20/2024 1:45 PM EST Office Visit Endocrinology - [address] [phone] Yamil Toledo MD Type 2 diabetes mellitus without complication, without long-term current use of insulin ([facility]) (Primary Dx) 08/20/2024 Telephone Pulmonolgy - [place] [address] [facility] [address] [place] [phone] Nurys Arnold [place] prior authorization (albuterol) 08/19/2024 Nurse Triage Adult [address] [phone] Ashley Hernandez, RN 08/19/[address] [phone] Ashley Hernandez, RN 08/16/2024 Telephone Adult Medicine [address] [phone] Ashley Hernandez, RN 08/15/2024 7:30 AM EST Ancillary Procedure [facility] [address] [facility] [address] [place] [phone] Leg swelling 07/26/2024 Nurse Triage Adult [address] [phone] Maida Anne, MD 07/26/2024 Telephone Adult [address] [phone] Ashley Hernandez RN 07/17/2024 5:00 PM EST Office Visit [address] [phone] Maida Ann MD Type 2 diabetes mellitus with diabetic microalbuminuria, without long-term current use of insulin ([facility]) (Primary Dx); Morbid obesity with BMI of 45.0-49.9, adult ([facility]); Mild intermittent reactive airway disease without complication; DALE (obstructive sleep apnea); Multiple sclerosis, relapsing-remitting ([facility]); Restless leg syndrome; Gastroesophageal reflux disease without esophagitis; Anxiety and depression; Subclinical hypothyroidism; Vitamin D insufficiency; Leg swelling; Achilles tendon tear, left, initial encounter; Chronic pain of left ankle; Recurrent UTI; Surgical menopause 06/28/[address] [phone] Maida Ann MD Forms/questionnaires 06/28/[address] [phone] Valerie Ponce [place] DME request (Order for CPAP supplies sent to [employer]. Fax confirmation received. ) 06/21/2024 8:50 AM EST Office Visit Pulmon[address] [phone] Milady Hogan NP DALE (obstructive sleep apnea) (Primary Dx); Restless leg syndrome; Mild intermittent reactive airway disease without complication; NIKKIE (mycobacterium avium-intracellulare ) ([facility]); Gastroesophageal reflux disease without esophagitis 06/04/2024 Telephone Adult [address] [phone] Jessy Alvarez LPN Diarrhea; Medication Problem (Metformin ) from Last 3 Months Immunizations Name Administration Dates Next Due H1N1 Inj Preservative Free 07/17/2009 Influenza Quadravalent, MDCK , 0.5ml, with preservative (Flucelvax) 6mo and older 05/15/2023,05/18/2022,07/15/2021,04/08,05/08/2019,03/24/2018,04/06/2017 Influenza trivalent, 0.5mL, preservative free (Fluarix; FluLaval; Fluzone) ages 6mo and older (Afluria) 3 years and older 05/04/2016,05/04/2013,06/04/2012,05/12,04/30/2010,07/17/2009,04/29/2008 ,05/25/2007 Influenza, Unspecified 05/08/2019,03/24/2018,11/2015 Whimseybox SARS-CoV-2 COVID-19, mRNA, LNP-S, preservative free 05/24/2021,12/08/2020 Pneumococcal polysaccharide 23 valent (Pneumovax 23) 2yo and older 10/10/2013 Td Tetanus diptheria (Tdvax) 7yo and older 11/02/2006 Tdap Tetanus diptheria acell ular pertussis (Boostrix; Adacel) 7yo and older 10/10/2013 Surgical History Surgery Date Site/Laterality Comments CHOLECYSTECTOMY PROCEDURE: HISTORICAL CHOLECYSTECTOMY OTHER SURGICAL HISTORY PROCEDURE: LUNG BIOPSY THROUGH CHEST WALL; COMMENT: MAC OTHER SURGICAL HISTORY PROCEDURE: HISTORY OTHER; COMMENT: left cheek laceration, needed plastic surgeon TUBAL LIGATION PROCEDURE: HISTORICAL TUBAL LIGATION BREAST REDUCTION 1999 PROCEDURE: OR BREAST REDUCTION OTHER SURGICAL HISTORY 2021 PROCEDURE: HISTORICAL PELVISCOPY; COMMENT: Lap right oophorectomy for ovarian cyst at [facility] HYSTERECTOMY 01/17/2024 N/A PROCEDURE: HISTORICAL HYSTERECTOMY; COMMENT: TLH, LSO Medical History Medical History Date Comments 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); COMMENT: treated 2007 - Dr Serrano Other emphysema ([facility]/HCC) 03/29/2007 DX:Oth er emphysema ([facility]); COMMENT: h/o lung nodules- was seeing Dr Shadi Serrano and was told they resolved. Esophageal reflux DX:Esophageal reflux Unspecified glaucoma(365.9) DX:U nspecified glaucoma(365.9); COMMENT: question of glaucoma Excessive sweating 02/23/2015 DX:Excessive sweating Anxiety 12/27/2018 DX:Anxiety Anxiety and depression 12/27/2018 DX:Anxiet y and depression Abnormal uterine bleeding (AUB) 06/01/2023 Last Assessment & Plan: Pt was counseled re: options for treatment of her symptoms including additional oral hormonal therapy and hysterectomy. She was counseled that hysterectomy would stop her bleeding, but there is no guarantee that it will resolve her pelvic pain as the cause of this is not clear. We discussed that we can try to remove the ovarian cysts and the tube, which by US may or may Family History Medical History Relation Name Comments Strabismus Aunt Alcohol abuse Brother Arthritis Father Diabetes Father Cataracts Maternal Grandmother Glaucoma Maternal Grandmother Arthritis Mother fibromyalgia Glaucoma Mother Multiple sclerosis Mother's side grandfat her, uncle, 2 of the uncle's kids (1st cousins) Blindness Other daughter Strabismus Other daughter Breast cancer Paternal Grandmother Macular degeneration Neg Hx Relation Name Status Comments Aunt Brother Father Alive diab, chol Maternal Grandmother Mother Alive chol, fibromyal maría Mother's side Other daughter Paternal Grandmother Social History Tobacco Use Types Packs/Day Years Used Date Smoking Tobacco: Never Smokeless Tobacco: Never Tobacco Cessation:Counseling Given: Not Answered Alcohol Use Standard Drinks/Week Comments No 0 (1 standard drink = 0.6 oz pur e alcohol) Sex and Gender Information Value Date Recorded Sex Assigned at Not on file Gender Identity Not on file Sexual Orientation Not on file Job Start Date Occupation Industry Not on file Not on file Not on file Obstetrics History Last Filed Vital Signs Vital Sign Reading Time Taken Comments Blood Pressure 101/62 08/20/2024 1:45 PM EST Pulse 94 08/20/2024 1:45 PM EST Temperature 35.9 ??C (96.6 ??F) 08/20/2024 1:45 PM ES T Respiratory Rate 17 07/17/2024 4:55 PM EST Oxygen Saturation 100% 08/20/2024 1:45 PM EST Inhaled Oxygen Concentration - - Weight 136 kg (299 lb) 08/20/2024 1:45 PM EST Height 167.6 cm (5' 6 ) 08/20/2024 1:45 PM EST Body Mass Index 48.26 08/20/2024 1:45 PM EST Plan of Treatment Upcoming Encounters Date Type Department Care Team (Late st Contact Info) Description 11/05/2024 2:00 PM EDT Consult [place]cology [facility] [address] [place] [phone] Sandra Monk MD [address] [facility] [address] [place] [address] 12/19/2024 10:30 AM EDT Office Visit Pulmonolgy - [place] [address] [facility] [address] [place] [phone] Milady Hogan NP [address] [facility] [address] [place] [address] Health Maintenance Due Date Last Done Comments Breast Cancer Screening 1982 Pneumococcal Vaccine: Pediatrics (0 to 5 Years) and At-Risk Patients (6 to 64 Years) (2 of 2 - PCV) 10/10/2014 10/10/2013 Social Influencers of Health Screening 06/29/2022 DTaP,Tdap,and Td Vaccines (3 - Td or Tdap) 10/11/2023 10/10/2013, 11/02/2006 Diabetes: Annual Retina Eye Exam 02/22/2024 02/21/2023 Diabetes: Annual Foot Exam 06/12/2024 06/12/2023 Depression Screening 01/02/2025 01/03/2024 Diabetes: Blood Sugar Control Test (HGBA1C) 02/10/2025 08/13/2024, 05/31/2024, 12/21/2023, Additional history exists Cervical Cancer Screening: HPV 02/20/2025 02/21/2020 Diabetes: Annual GFR (Glomerular Filtration Rate) 05/31/2025 05/31/2024, 12/21/2023, 12/21/2023 Diabetes: Annual Urine Albumin-Creatinine Ratio (uACR) 08/13/2025 08/13/2024, 05/01/2023 Cholesterol Screening (Lipid Panel) 08/13/2029 08/13/2024, 05/01/2023 HIV Screening Completed 02/21/2020 Hepatitis C Screening Completed 02/21/2020 COVID-19 Vaccine Discontinued 05/24/2021, 05/2021, 11/16/2020 Influenza Vaccine Completed 06/09/2024, , 05/18/2022, Additional history exists HIB Vaccines Aged Out No longer eligi ble based on patient's age to complete this topic HPV Vaccines Aged Out No longer eligi ble based on patient's age to complete this topic Hepatitis A Vaccines Aged Out No long er eligible based on patient's age to complete this topic Hepatitis B Vaccines Discontinued IPV Vaccines Aged Out No longer eligi ble based on patient's age to complete this topic MMR Vaccines Aged Out No longer eligi ble based on patient's age to complete this topic Meningococcal ACWY Vaccine Aged Out N o longer eligible based on patient's age to complete this topic RSV Immunization Patients Under 20 months Aged Out No longer eligible based on patient's age to complete this topic Varicella Vaccines Aged Out No longer eligible based on patient's age to complete this topic Procedures Procedure Name Priority Date/Time Associated Diagnosis Comments VAS US DUPLEX LOWER EXT VENOUS INSUFFICIENCY BILATERAL Routine 08/15/2024 8:12 AM EST Leg swelling MICROALBUMIN CREATININE URINE RATIO Routine 08/13/2024 1:30 PM EST Type 2 diabetes mellitus with diabetic microalbuminuria, without long-term current use of insulin ([facility]) HEMOGLOBIN A1C Routine 08/13/2024 11:59 AM EST Type 2 diabetes mellitus with diabetic microalbuminuria, without long-term current use of insulin ([facility]) LIPID PANEL WITH REFLEX TO DIRECT LDL Routine 08/13/2024 11:59 AM EST Type 2 diabetes mellitus with diabetic microalbuminuria, without long-term current use of insulin ([facility]) THYROID STIMULATING HORMONE WITH REFLEX TO FREE T4 AND FREE T3 Routine 08/13/2024 11:59 AM EST Subclinical hypothyroidism VITAMIN D 25 HYDROXY Routine 08/13/2024 11:59 AM EST Vitamin D insufficiency OR SLEEP STUDY ATTENDED 07/19/2024 DEPRESSION SCREENING Routine 01/03/2024 ANNUAL BMP BLOOD TEST Routine 12/21/2023 DIABETES FOOT EXAM Routine 06/12/2023 DIABETES EYE EXAM Routine 02/21/2023 HPV Routine 02/21/2020 HEPATITIS C SCREENING Routine 02/21/2020 HIV SCREENING Routine 02/21/2020 from Last 3 Months or Most Recently Relevant to Health Maintenance Results * Vascular US duplex lower extremity venous insufficiency bilateral (08/15/2024 8:12 AM EST) Left GSK meng 0.50 cm CV VAS LAB Left GSDC meng 0.43 cm CV VAS LAB Left GSMT meng 0.54 cm CV VAS LAB Left GSPC meng 0.42 cm CV VAS LAB Left GSPT meng 0.47 cm CV VAS LAB Left SFJ Diameter 0.69 cm CV VAS LAB Left SSMC meng 0.36 cm CV VAS LAB Left SSPC meng 0.38 cm CV VAS LAB Right GSK meng 0.58 cm CV VAS LAB Right GSDC meng 0.44 cm CV VAS LAB Right GSMT meng 0.56 cm CV VAS LAB Right GSPC meng 0.44 cm CV VAS LAB Right GSPT meng 0.58 cm CV VAS LAB Right SFJ Diameter 0.54 cm CV VAS LAB Right SSMC meng 0.26 cm CV VAS LAB Right SPJ Diameter 0.35 cm CV VAS LAB Right SSPC meng 0.51 cm CV VAS LAB Left SPJ Diameter 0.36 cm CV VAS LAB Anatomical Region Laterality Modality Vascular, Abdomen Ultrasound Narrative 08/15/2024 3:15 PM EST Right No right deep vein thrombosis. Right deep veins are competent. Right superficial veins have no thrombosis. Right GSV has no significant reflux. Right SSV has no significant reflux. Left No left deep vein thrombosis. Left deep veins are competent. Left superficial veins have no thrombosis. Left GSV has no significant reflux. Left SSV has no significant reflux. Right Lower Venous The common femoral, femoral, popliteal, greater and lesser saphenous veins were interrogated, demonstrating normal compressibility. Doppler signals were phasic and spontaneous. Right Venous Insufficiency Duplex The exam was performed with the patient in reverse Trendelenburg. Left Lower Venous The common femoral, femoral, popliteal, greater and lesser saphenous veins were interrogated, demonstrating normal compressibility. Doppler signals were phasic and spontaneous. Left Venous Insufficiency Duplex The exam was performed with the patient in reverse trendelenburg. Pathology Collector Details A aldrich scale, color and doppler analysis ultrasound was performed. During the study longitudinal and transverse views were obtained. Pulsed wave doppler was performed. Maida Ann MD CV VASCU LAR PROCEDURES * (ABNORMAL) Microalbumin creatinine urine ratio (08/13/2024 1:30 PM EST) Creatinine, Urine 224.0 mg/dL LAB CHEMISTRY METHOD 08/13/2024 10:00 PM EST [facility] Microalb, Ur 38.7(H) 0.0 - 29.0 mg/L LAB CHEMISTRY METHOD 08/13/2024 10:00 PM EST [facility] Microalb/Crea t Ratio 17 <30 mg/g creat LAB CHEMISTRY METHOD 08/13/2024 10:00 PM EST [facility] Urine Urine specimen obtained by clean catch procedure / Unknown Non-blood Collection / Unknown 08/13/2024 1:30 PM EST 08/13/2024 1:30 PM EST Maida Ann MD LAB URIN E ORDERABLES [facility] [address] [place] [address], * Thyroid stimulating hormone with reflex to free t4 and free t3 (08/13/2024 11:59 AM EST) TSH 2.95 0.40 - 4.00 mcIU/mL LAB CHEMISTRY METHOD 08/13/2024 4:58 PM EST [facility] Blood Venous blood specimen / Unknown Venipuncture / Unknown 08/13/2024 11:59 AM EST 08/13/2024 11:59 AM EST Maida Ann MD LAB BLOO D ORDERABLES [facility] [address] [place] [address], * (ABNORMAL) Lipid panel with reflex to direct LDL (08/13/2024 11:59 AM EST) Cholesterol 192 0 - 200 mg/dL LAB CHEMISTRY METHOD 08/13/2024 4:57 PM [facility] Triglycerides 75 0 - 150 mg/dL LAB CHEMISTRY METHOD 08/13/2024 4:57 PM [facility] HDL 40 >=40 mg/dL LAB CHEMISTRY METHOD 08/13/2024 4:57 PM [facility] LDL Calculated 137(H) 0 - 100 mg/dL LAB CHEMISTRY METHOD 08/13/2024 4:57 PM [facility] VLDL Cholesterol Orestes 15 mg/dL LAB CHEMISTRY METHOD 08/13/2024 4:57 PM [facility] Non HDL Chol. (LDL+VLDL) 152(H) <145 mg/dL LAB CHEMISTRY METHOD 08/13/2024 4:57 PM [facility] Chol/HDL Ratio 4.8(H) 0.0 - 4.4 LAB CHEMISTRY METHOD 08/13/2024 4:57 PM [facility] Blood Venous blood specimen / Unknown Venipuncture / Unknown 08/13/2024 11:59 AM EST 08/13/2024 11:59 AM EST Oyicarlito Ann MD LAB BLOO D ORDERABLES Performing Organization Address City/[facility]/ZIP Co de Phone Number [facility] [address] [place] [address], * Vitamin D 25 hydroxy (08/13/2024 11:59 AM EST) Vit D, 25-Hydroxy 68.8 30.0 - 80.0 ng/mL LAB CHEMISTRY METHOD 08/13/2024 4:58 PM EST [facility] Blood Venous blood specimen / Unknown Venipuncture / Unknown 08/13/2024 11:59 AM EST 08/13/2024 11:59 AM EST Maida Ann MD LAB BLOO D ORDERABLES Performing Organization Address [facility] Co de Phone Number [facility] [address] [place] [address], [place] [phone] * (ABNORMAL) Hemoglobin A1c (08/13/2024 11:59 AM EST) [facility] Hemoglobin A1C 6.8(H) <6.5 % LAB CHEMISTRY METHOD 08/13/2024 9:31 PM EST [facility] Mean Bld Glu Estim. 148 mg/dL LAB CHEMISTRY METHOD 08/13/2024 9:31 PM EST [facility] Blood Venous blood specimen / Unknown Venipuncture / Unknown 08/13/2024 11:59 AM EST 08/13/2024 11:59 AM EST aMida Ann MD LAB BLOO D ORDERABLES Performing Organization Address City/[facility]/ZIP Co de Phone Number [facility] [address] [place], [place] [address], [place] [phone] * General sleep study (07/19/2024) Provider [facility] ORD ERABLES * Depression Screening (01/03/2024) [facility] Depression Screening abstracted Historical Provider [facility] Annual BMP Blood Test (12/21/2023) [facility] Annual BMP Blood Test abstracted Historical Provider [facility] * Diabetes Foot Exam (06/12/2023) [facility] Diabetes: Annual Foot Exam abstracted Historical Provider [facility] * Diabetes Eye Exam (02/21/2023) [facility] Diabetes: Annual Retina Eye Exam abstracted [facility] Provider [facility] * Cervical Cancer Screening: HPV (02/21/2020) [facility] Cervical Cancer Screening: HPV abstracted, negative Historical Provider [facility] * HIV Screening (02/21/2020) [facility] HIV Screening abstracted [facility] Provider [facility] Hepatitis C Screening (02/21/2020) [facility] Hepatitis C Screening abstracted Historical Provider [facility] from Last 3 Months or Most Recently Relevant to Health Maintenance Care Teams Screen Door Maker Relationship Specialty Start Date End Date Maida Ann MD [address] [place], [place] PCP - General Internal Medicine 03/09/22
--- OUTSIDE RECORDS SUMMARY | 2024-08-28 14:11 | XMS_ITS | Encounter Summary ---
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 90 each 1 08/16/2024 02/12/2025 rosuvastatin (CRESTOR) 10 mg tabletIndications:Mixed hyperlipidemia Take 1 tablet (10 mg total) by mouth 1 (one) time each day. 90 each 1 08/16/2024 02/12/2025 documented in this encounter Progress Notes * Ashley Hernandez RN - 08/16/2024 2:06 PM EST I left a message for the pt to call the office at . * Maida Ann MD - 08/16/2024 1:34 PM EST Thank you. Both medications are sent. Repeat labs ordered for 3 months from now. Please inform her to come in 3 months for the fasting blood work. I have ordered the Tdap booster. She can be scheduled for nurse visit. * Ashley Hernandez RN - 08/16/2024 1:[address] Ann; Please call patient regarding results. She has mild microalbuminuria related to the diabetes. Will benefit from a low-dose of losartan to help protect the kidneys. If she is interested I can send the medication to her pharmacy. Additionally, her cholesterol levels are elevated. The LDL is 137. Goal for diabetes is less than 70. I recommend initiation of a low-dose cholesterol medication called rosuvastatin. If she is interested this will also be sent to her pharmacy. Her diabetes is well-controlled with an A1c of 6.8. Thegoal is less than 7. Vitamin D levels and thyroid function is normal. Thank you Called pt and informed her of the message from Dr. Ann above. She is interested in the losartan and rosuvastatin and would like them sent to her pharmacy. She would also like Tdap. She went to her local [facility] pharmacy and they did not have it available. documented in this encounter Plan of Treatment Upcoming Encounters Date Type Department Care Team (Late st Contact Info) Description 11/05/2024 2:00 PM EDT Consult Urogynecology [address] [phone] Sandra Monk MD [address] [place] [address] [address] [place] [address] 12/19/2024 10:30 AM EDT Office Visit Pulmonolgy - [place] [address] [place] [address] Milady Hogan, MINISTERIO [address] [place] [address] Scheduled Orders Name Type Priority Associated Diagnoses Orde r Schedule Comprehensive metabolic panel Lab Routine Mixed hyperlipidemia Expected: 11/14/2024, Expires: 08/16/2025 Lipid panel with reflex to direct LDL Lab Routine Mixed hyperlipidemia Expected: 11/14/2024, Expires: 08/16/2025 Hemoglobin A1c Lab Routine 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) Expected: 11/14/2024, Expires: 08/16/2025 documented as of this encounter Visit Diagnoses Diagnosis 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)- Primary Mixed hyperlipidemia Need for tetanus, diphtheria, and acellular pertussis (Tdap) vaccine documented in this encounter Orders Immunization/Injection Count Last Ordered Date First Ordered Date TDAP TETANUS DIPTHERIA ACELL ULAR PERTUSSIS (BOOSTRIX; ADACEL) 7YO AND OLDER 1 08/16/2024 documented in this encounter Care Teams Animal Pathology Teacher Relationship Specialty Start Date End Date Maida Ann MD [address] [facility], [place] PCP - General Internal Medicine 03/09/22 documented as of this encounter
--- OUTSIDE RECORDS SUMMARY | 2024-08-28 14:11 | XMS_ITS | Encounter Summary ---
Author Organization [facility] Address [address] [place] [address] Care Team Providers Care Algebra Tutor Name Role Phone Stephany Elise MD Primary Care Provider James Bear Primary Care Provider Stephany De La Torre MD Primary Care Provider Kamlesh Sanchez MD Primary Care Provider Jorden Padgett Primary Care Provider [phone] Maida Ann MD Primary Care Provider + Reason for Visit * Reason Comments E-prescribe Rx Request Encounter Details Date Type Department Care Team Description 10/03/2017 Refill Adult Medicine [address] [address] Stephany Elise MD E-prescribe Rx Request Social [...] Telephone Encounter - Stephany Elise MD - 10/03/2017 3:45 PM EST Pls call pharmacy and cancel the Celexa - should be 1.5 tabs daily and I sent Rx on 07/06/17 for that for 5 refills. * Telephone Encounter - Kimberly Mcdonald - 10/03/2017 9:31 AM EST Patient would like script to be: E-PRESCRIBED/FAXED TO PHARMACY WHEN WAS THE PATIENT'S LAST APPOINTMENT IN ADULT MEDICINE? 06/05/17 WHEN WAS THE LAST TIME THE PATIENT SAW THEIR PCP? 04/06/17 Does patient have an upcoming appointment? Patient was sent a My Chart request to set up an appointment as they are due. (THE MEDICATION REQUESTED IS ON THE MED LIST ABOVE) All of the medications requested were on the CURRENT MEDS list Did you check the Pharmacy information above?: YES Patient wants: 30 -day supply Is this a mail order prescription request ? NO Patients current insurance carrier is: Payor: [facility] MEDICAID / Plan: [facility] MEDICAID HMO $0 SHEELA / Product Type: HMO [id number] documented in this encounter Plan of Treatment Not on file documented as of this encounter Visit Diagnoses Not on filedocumented in this encounter Additional Health Concerns Infection Onset Date Last Indicated Resolved Time COVID-19 Comment:Sx's started 05/23/22 tested + 05/25/22 05/25/2022 06/08/2022 10/09/2023 9:12 AM E DT documented as of this encounter Care Teams Algebra Tutor Relationship Specialty Start Date End Date Stephany Elise MD PCP - General 03/31/11 04/17/18 James Gomez PCP - General Internal Medicine 04/18/18 09/10/18 Stephany Elise MD PCP - General Internal Medicine 09/11/18 03/11/21 Kamlesh Patel MD PCP - General Internal Medicine 03/12/21 03/07/22 Jorden Kramer [address] [place] [address] PCP - General Internal Medicine 03/08/22 03/08/22 Maida Ann MD [address] [place] [address] PCP - General Internal Medicine 03/09/22 documented as of this encounter
--- OUTSIDE RECORDS SUMMARY | 2024-08-28 14:11 | XMS_ITS | Encounter Summary ---
Author Organization [facility] Address [address] [place] [address] Care Team Providers Care Pollution Control Technician Name Role Phone Maida Ann MD Primary Care Pr ovider Reason for Visit * Reason Onset Date Comments prior authorization 08/20/2024 albuterol Encounter Details Date Type Department Care Team ([facility] st Contact Info) Description 08/20/2024 Telephone [facility] [address] [facility] [address] [place] [phone] Nurys Arnold [place] prior authorization (albuterol) Social History Tobacco Use Types Packs/Day Years [...] as of this encounter Progress Notes * Inez Gan MA - 08/22/2024 3:26 PM EST This is not a proper prior authorization message. Prior authorizations come from the pharmacy with the information of medication and insurance neededto do the prior authorization. Please do not forward mychart or pt calls or provider messages. Pts or staff can be told to contact their pharmacy about sending the prior authorization to the office with the insurance information needed . Thank you Please reply back to [facility] ( Prior Auth Pool) Inez Mckeon [facility] Prior Authorization Ext [id number] * Nurys Thurman MA - 08/20/2024 3:51 PM EST can you send a PA for the rescue inhaler to [facility] so it will cover the copay. I use the name brand which [facility] covers but MH needs a PA documented in this encounter Plan of Treatment Upcoming Encounters Date Type Department Care Team (Late st Contact Info) Description 11/05/2024 2:00 PM EDT Consult Urogynecology [address] [phone] Sandra Monk MD [address] [facility] [address] [place] [address] 12/19/2024 10:30 AM EDT Office Visit Pulmonolgy - [place] [address] [facility] [address] [place] [address] Milady Hogan NP 175 [facility] [address] [place] [address] documented as of this encounter Visit Diagnoses Not on filedocumented in this encounter Care Teams Pollution Control Technician Relationship Specialty Start Date End Date Maida Ann MD [address] [place], [place] PCP - General Internal Medicine 03/09/22 documented as of this encounter
--- OUTSIDE RECORDS SUMMARY | 2024-08-28 14:11 | XMS_ITS | Encounter Summary ---
Author Organization [facility] Address [address] [place] [address] Care Team Providers Care Customer Acquisition Manager Name Role Phone Stephany Elise MD Primary Care Provider James Bear Primary Care Provider Stephany De La Torre MD Primary Care Provider Kamlesh Sanchez MD Primary Care Provider Jorden Padgett Primary Care Provider [phone] Maida Ann MD Primary Care Provider + Reason for Visit * Reason Onset Date Comments er follow up 06/05/2017 Encounter Details Date Type Department Care Team Description 06/05/2017 Telephone Adult [address] [address] Stephany Elsie MD er follow up Social History Tobacco Use Types Packs/Day Years [...] encounter Miscellaneous Notes * Telephone Encounter - Elodia Rohinikory - 06/05/2017 1:56 PM EST ER follow-up appointment booked YES 06-05-17 If ER follow up, can be booked with mid-level or MD. If hospital admission follow up MUST be booked with a physician Appointment time: 330PM Provider visit is scheduled with: India Parkinson PA-C Hospital patient was treated at: [facility] Date of visit: 06-04-17 Was this only an ER visit or was the patient admitted to the hospital? ER visit onlyER visit only If patient was admitted what was the date of discharge? N/A Reason/diagnosis for visit or stay: R GREAT TOE WC INJURY PALLET SOLOMON FELL ON TOE Was visit or stay related to an injury? YES If yes, what was the date of injury (DOI)? [id number] If yes, was the injury due to Worker's Comp Tests performed: Lab: YES X-ray: YES EKG: YES Other tests. If yes, what?; N/A documented in this encounter Plan of Treatment Not on file documented as of this encounter Visit Diagnoses Not on filedocumented in this encounter Additional Health Concerns Infection Onset Date Last Indicated Resolved Time COVID-19 Comment:Sx's started 05/23/22 tested + 05/25/22 05/25/2022 06/08/2022 10/09/2023 9:12 AM E DT documented as of this encounter Care Teams Customer Acquisition Manager Relationship Specialty Start Date End Date Stephany Elise MD PCP - General 03/31/11 04/17/18 James Gomez PCP - General Internal Medicine 04/18/18 09/10/18 Stephany Elise MD PCP - General Internal Medicine 09/11/18 03/11/21 Kamlesh Patel MD PCP - General Internal Medicine 03/12/21 03/07/22 Jorden Kramer [address] [place] [address] PCP - General Internal Medicine 03/08/22 03/08/22 Maida Ann MD [address] [place] [address] PCP - General Internal Medicine 03/09/22 documented as of this encounter
--- OUTSIDE RECORDS SUMMARY | 2024-08-28 14:11 | XMS_ITS | Encounter Summary ---
Author Organization [facility] Address [address] [place] [address] Care Team Providers Care Dry House Worker Name Role Phone Stephany Elise MD Primary Care Provider James Bear Primary Care Provider Stephany De La Torre MD Primary Care Provider Kamlesh Sanchez MD Primary Care Provider Jorden Padgett Primary Care Provider [phone] Maida Ann MD Primary Care Provider + Encounter Details Date Type Department Care Team Description 06/16/2014 [place] [place] Report Medical Records [address] [place] [address] Nona Armstrong Social History Tobacco Use Types Packs/Day Years [...] documented as of this encounter Care Teams Dry House Worker Relationship Specialty Start Date End Date Stephany Elise MD PCP - General 03/31/11 04/17/18 James Gomez PCP - General Internal Medicine 04/18/18 09/10/18 Stephany Elise MD PCP - General Internal Medicine 09/11/18 03/11/21 Kamlesh Patel MD PCP - General Internal Medicine 03/12/21 03/07/22 Jorden Kramer [address] [place] [address] PCP - General Internal Medicine 03/08/22 03/08/22 Maida Ann MD [address] [place] [address] PCP - General Internal Medicine 03/09/22 documented as of this encounter
--- OUTSIDE RECORDS SUMMARY | 2024-08-28 14:11 | XMS_ITS | Encounter Summary ---
Author Organization [facility] Address [address] [place] [address] Care Team Providers Care Garage Supervisor Name Role Phone Stephany Elise MD Primary Care Provider James Bear Primary Care Provider Stephany De La Torre MD Primary Care Provider Kamlesh Sanchez MD Primary Care Provider Jorden Padgett Primary Care Provider [phone] Maida Ann MD Primary Care Provider + Encounter Details Date Type Department Care Team Description 06/20/2014 Release of Information Medical Records [address] [place] [address] Abstract, Provider Social History Tobacco Use Types [...] documented as of this encounter Care Teams Garage Supervisor Relationship Specialty Start Date End Date Stephany Elise MD PCP - General 03/31/11 04/17/18 James Gomez PCP - General Internal Medicine 04/18/18 09/10/18 Stephany Elise MD PCP - General Internal Medicine 09/11/18 03/11/21 Kamlesh Patel MD PCP - General Internal Medicine 03/12/21 03/07/22 Jorden Kramer [address] [place] [address] PCP - General Internal Medicine 03/08/22 03/08/22 Maida Ann MD [address] [place] [address] PCP - General Internal Medicine 03/09/22 documented as of this encounter
--- OUTSIDE RECORDS SUMMARY | 2024-08-28 14:11 | XMS_ITS | Encounter Summary ---
Author Organization [facility] Address [address] [place] [address] Care Team Providers Care Enterprise Services Manager Name Role Phone Stephany Elise MD Primary Care Provider James Bear Primary Care Provider Stephany De La Torre MD Primary Care Provider Kamlesh Sanchez MD Primary Care Provider Jorden Padgett Primary Care Provider [phone] Maida Ann MD Primary Care Provider + Encounter Details Date Type Department Care Team Description 11/25/2015 Pt. Referral Request [address] [address] Md Zach Social History Tobacco Use Types Packs/Day Years [...] documented as of this encounter Care Teams Enterprise Services Manager Relationship Specialty Start Date End Date Stephany Elise MD PCP - General 03/31/11 04/17/18 James Gomez PCP - General Internal Medicine 04/18/18 09/10/18 Stephany Elise MD PCP - General Internal Medicine 09/11/18 03/11/21 Kamlesh Patel MD PCP - General Internal Medicine 03/12/21 03/07/22 Jorden Kramer [address] [place] [address] PCP - General Internal Medicine 03/08/22 03/08/22 Maida Ann MD [address] [place] [address] PCP - General Internal Medicine 03/09/22 documented as of this encounter
--- OUTSIDE RECORDS SUMMARY | 2024-08-28 14:11 | XMS_ITS | Encounter Summary ---
Author Organization [facility] Address [address] [place] [address] Care Team Providers Care Savings Counselor Name Role Phone Maida Ann MD Primary Care Pr ovider Reason for Visit * Imaging (Routine) - Closed Specialty Diagnoses / Procedures Referred By Contac t Referred To Contact Diagnoses Leg swelling Procedures Vascular US duplex lower extremity venous insufficiency bilateral Vascular US duplex lower extremity venous bilateral Maida Ann MD [address] [place] [address] [facility] Referral ID Status Reason Start Date Expiration Date Visits Re quested Visits Authorized [id number] Closed 07/17/2024 07/17/2025 1 1 Encounter Details Date Type Department Care Team ([facility] Contact Info) Description 08/15/2024 7:30 AM EST Ancillary Procedure [facility] [address] [facility] [address] [place] [address] Leg swelling Social History Tobacco Use Types Packs/Day Years [...] as of this encounter Plan of Treatment Upcoming Encounters Date Type Department Care Team (Late Contact Info) Description 11/05/2024 2:00 PM EDT Consult Urogynecology - [place] [address] [place] [address] Sandra Monk MD [address] [facility] [address] [place] [address] 12/19/2024 10:30 AM EDT Office Visit Pulmonolgy - [place] [address] [place] [address] Milady Hogan NP [address] [place] [address] documented as of this encounter Procedures Procedure Name Priority Date/Time Associated Diagnosis Comments VAS US DUPLEX LOWER EXT VENOUS INSUFFICIENCY BILATERAL Routine 08/15/2024 8:12 AM EST Leg swelling documented in this encounter Results * Vascular US duplex lower extremity [...] performed with the patient in reverse trendelenburg. Sodder Details A aldrich scale, color and doppler analysis ultrasound was performed. During the study longitudinal and transverse views were obtained. Pulsed wave doppler was performed. Maida Ann MD CV VASCU LAR PROCEDURES documented in this encounter Visit Diagnoses Diagnosis Leg swelling Swelling of limb documented in this encounter Care Teams Savings Counselor Relationship Specialty Start Date End Date Maida Ann MD [address] [place], [place] PCP - General Internal Medicine 03/09/22 documented as of this encounter
--- OUTSIDE RECORDS SUMMARY | 2024-08-28 14:11 | XMS_ITS | Encounter Summary ---
Author Organization [facility] Address [address] [place] [address] Care Team Providers Care Cloth Burler Name Role Phone James Gomez Primary Care Provider Stephany De La Torre MD Primary Care Provider Kamlesh Sanchez MD Primary Care Provider Jorden Padgett Primary Care Provider [phone] Maida Ann MD Primary Care Provider + Encounter Details Date Type Department Care Team Description 07/17/2018 Director Emergency Services Report Medical Records [address] [place] [address] Nona Armstrong Social History Tobacco Use Types [...] documented as of this encounter Care Teams Cloth Burler Relationship Specialty Start Date End Date James Gomez PCP - General Internal Medicine 04/18/18 09/10/18 Stephany Elise MD PCP - General Internal Medicine 09/11/18 03/11/21 Kamlesh Patel MD PCP - General Internal Medicine 03/12/21 03/07/22 Jorden Kramer [address] [place] [address] PCP - General Internal Medicine 03/08/22 03/08/22 Maida Ann MD [address] [place] [address] PCP - General Internal Medicine 03/09/22 documented as of this encounter
--- OUTSIDE RECORDS SUMMARY | 2024-08-28 14:11 | XMS_ITS | Encounter Summary ---
Author Organization [facility] Address [address] [place] [address] Care Team Providers Care Sports Internship Name Role Phone Maida Ann MD Primary Care Pr ovider Encounter Details Date Type Department Care Team (Late st Contact Info) Description 08/19/2024 Nurse Triage Adult Medicine [address] [phone] Ashley Hernandez, RN Social History Tobacco Use [...] as of this encounter Progress Notes * Ashley Hernandez RN - 08/19/2024 4:34 PM EST Called and spoke to pt. She states she had an appointment with urology last week. She was placed on antibiotics but was called back and told she did not need the antibiotics. She continues to have symptoms. She was referred to urogynecology. She was given the phone number to the specialties department, and was instructed to call for an appointment. She is in agreement with this plan. Reason for Disposition > 2 UTI's in last year Answer Assessment - Initial Assessment Questions 1. SEVERITY: How bad is the pain? (e.g., Scale 1-10; mild, moderate, or severe) - MILD (1-3): Complains slightly about urination hurting. - MODERATE (4-7): Interferes with normal activities. - SEVERE (8-10): Excruciating, unwilling or unable to urinate because of the pain. She rates the pain as 9/10 2. FREQUENCY: How many times have you had painful urination today? She states the pain occurs when her bladder is empty. She states it has happened multiple times today. 3. PATTERN: Is pain present every time you urinate or just sometimes? She states the pain is present every time she urinates. 4. ONSET: When did the painful urination start? She states she has had pain with urination for 1 month. She states the pain is intermittent. 5. FEVER: Do you have a fever? If Yes, ask: What is your temperature, how was it measured, and when did it start? No fever 6. PAST UTI: Have you had a urine infection before? If Yes, ask: When was the last time? and What happened that time? Yes frequently and she has been prescribed antibiotics for good effect. 7. CAUSE: What do you think is causing the painful urination? (e.g., UTI, scratch, Herpes sore) Unknown 8. OTHER SYMPTOMS: Do you have any other symptoms? (e.g., blood in urine, flank pain, genital sores, urgency, vaginal discharge) She states at times her urine can be nitesh. 9. : Is there any chance you are ? When was your last menstrual period? No. S/p hysterectomy Protocols used: Urination Pain - Female-A-AH documented in this encounter Plan of Treatment Upcoming Encounters Date Type Department Care Team (Late st Contact Info) Description 11/05/2024 2:00 PM EDT [facility] [address] [place] [phone] Sandra Monk MD [address] [facility] [address] [place] [address] 12/19/2024 10:30 AM EDT Office Visit Pulmonolgy - [place] [address] [place] [phone] Milady Hogan NP [address] [place] [address] documented as of this encounter Visit Diagnoses Not on filedocumented in this encounter Care Teams Sports Internship Relationship Specialty Start Date End Date Maida Ann MD [address] [place] [address] PCP - General Internal Medicine 03/09/22 documented as of this encounter
--- OUTSIDE RECORDS SUMMARY | 2024-08-28 14:11 | XMS_ITS | Encounter Summary ---
Author Organization [facility] Address [address] [place] [address] Care Team Providers Care Crystal Calibrator Name Role Phone Stephany Elise MD Primary Care Provider Brittney Burroughs MD Primary Care Provider Unavailable James Gomez Primary Care Provider Stephany De La Torre MD Primary Care Provider Kamlesh Sanchez MD Primary Care Provider Jorden Padgett Primary Care Provider [phone] Maida Ann MD Primary Care Provider + Encounter Details Date Type Department Care Team Description 02/10/2011 Text Transcriber Report Medical Records [address] [place] [id number] Guillermo Rainey MD Social History Tobacco Use Types Packs/Day [...] documented as of this encounter Care Teams Crystal Calibrator Relationship Specialty Start Date End Date Stephany Elise MD PCP - General 03/31/11 04/17/18 Brittney Henning MD PCP - General 03/23/0703/30 James Gomez PCP - General Internal Medicine 04/18/18 09/10/18 Stephany Elise MD PCP - General Internal Medicine 09/11/18 03/11/21 Kamlesh Patel MD PCP - General Internal Medicine 03/12/21 03/07/22 Jorden Kramer [address] [place] [id number] PCP - General Internal Medicine 03/08/22 03/08/22 Maida Ann MD [address] [place] [id number] PCP - General Internal Medicine 03/09/22 documented as of this encounter
--- OUTSIDE RECORDS SUMMARY | 2024-08-28 14:11 | XMS_ITS | Encounter Summary ---
Author Organization [facility] Address [address] [place] [address] Care Team Providers Care Tempering Machine Operator Name Role Phone Stephany Elise MD Primary Care Provider Kamlesh Sanchez MD Primary Care Provider Jorden Padgett Primary Care Provider [phone] Maida Ann MD Primary Care Provider + Reason for Visit * Reason Comments E-prescribe Rx Request Encounter Details Date Type Department Care Team Description 02/12/2021 Refill Adult Medicine [address] [address] Karina Miller PA [address] [place] [id number] E-prescribe Rx Request Social History Tobacco Use [...] encounter Miscellaneous Notes * Telephone Encounter - Araceli Fulton C.M.A - 02/12/2021 8:30 AM EDT Lab Results Component Value Date NA 139 12/21/2020 K 4.1 12/21/2020 CO2 31 12/21/2020 CL 104 12/21/2020 BUN 13 12/21/2020 CREAT 0.67 12/21/2020 GLU 110 12/21/2020 CA 9.0 12/21/2020 GFR > 60 12/21/2020 * Telephone Encounter - Jillian Chan - 02/12/2021 7:45 AM EDT Patient would like script to be: E-PRESCRIBED/FAXED TO PHARMACY WHEN WAS THE PATIENT'S LAST APPOINTMENT IN ADULT MEDICINE? 12/08/2020 WHEN WAS THE LAST TIME THE PATIENT SAW THEIR PCP? 04/06/2017 Does patient have an upcoming appointment? No, patient will call to book appointment (THE MEDICATION REQUESTED IS [...] N/A Patients current insurance carrier is: Payor: [employer] FFS / Plan: [employer] / Product Type: MEDICAID RISK documented in this encounter Plan of Treatment Not on file documented as of this encounter Visit Diagnoses Not on filedocumented in this encounter Additional Health Concerns Infection Onset Date Last Indicated Resolved Time COVID-19 Comment:Sx's started 05/23/22 tested + 05/25/22 05/25/2022 06/08/2022 10/09/2023 9:12 AM E DT documented as of this encounter Care Teams Tempering Machine Operator Relationship Specialty Start Date End Date Stephany Elise MD PCP - General Internal Medicine 09/11/18 03/11/21 Kamlesh Patel MD PCP - General Internal Medicine 03/12/21 03/07/22 Jorden Kramer [address] [place] [address] PCP - General Internal Medicine 03/08/22 03/08/22 Maida Ann MD [address] [place] [id number] PCP - General Internal Medicine 03/09/22 documented as of this encounter
--- OUTSIDE RECORDS SUMMARY | 2024-08-28 14:11 | XMS_ITS | Encounter Summary ---
Author Organization [facility] Address [address] [place] [address] Care Team Providers Care Last Greaser Name Role Phone Stephany Elise MD Primary Care Provider Kamlesh Sanchez MD Primary Care Provider Jorden Padgett Primary Care Provider [phone] Maida Ann MD Primary Care Provider + Reason for Visit * Reason Onset Date Comments Prior Authorization 11/28/2018 Encounter Details Date Type Department Care Team Description 11/28/2018 Telephone Adult [address] [address] Stephany Elise MD Prior Authorization Social History Tobacco Use Types [...] encounter Miscellaneous Notes * Telephone Encounter - Marietta Hedrick M.A. - 12/04/2018 8:01 AM EDT lyrica denied: A diagnosis of seizure disorder A diagnosis of neuropathic pain associated with diabetic neuropathy A poor response or cannot use a tricyclic antidepressant and duloxetine A diagnosis of post herpetic neuralgia A poor response to or cannot use tricyclic antidepressant A diagnosis of fibromyalgia Prescribed by a bean picker machine operator, energy director, paint spray inspector or neurologist Thank you [place] [phone] prior authorization pool Casi Hedrick C.M.A. [facility]ly [facility] Prior Authorizations Ext: [phone] * Telephone Encounter - Karen Eldridge M.A. - 12/03/2018 11:18 AM EDT Prior auth done by form to [facility] for lyrica Neuropathic pain secondary to multiple sclerosis * Telephone Encounter - Luis Felipe Perales MD - 11/30/2018 6:17 PM EDT The patient has neuropathic pain secondary to multiple sclerosis * Telephone Encounter - Karen Eldridge M.A. - 11/28/2018 1:34 PM EDT Medication is covered for diabetic neuropathy,neuropathic pain associated with spinal cord injury, postherpetic neuralgi,seizure disorder [place] [phone] Prior Auth [facility] Karen Eldridge M.A. [facility] Prior Authorizations Ext [phone] Fax: [phone] [place] p [phone] Prior Auth [facility] * Telephone Encounter - Jennifer Kim - 11/28/2018 12:46 PM EDT Pre Authorization for Medication-do not complete and send this encounter unless you have the fax from the pharmacy. Is this a Cover My Meds request: Yes -- Cash Code [id number] Name of Medication pregabalin (LYRICA) 50 MG capsule Dose of Medication 50 MG What is the RX # from the faxed refill? How does patient take this med? Take 1 Cap by mouth daily. - Oral What Pharmacy did the fax come from: [facility] fax #: [phone] [employer] Party Information from fax: What Prescription Plan does the patient have? BIN/PCN if applicable: Cardholder ID: Person Code: Relationship Code: Help desk phone: [phone] documented in this encounter Plan of Treatment Not on file documented as of this encounter Visit Diagnoses Not on filedocumented in this encounter Additional Health Concerns Infection Onset Date Last Indicated Resolved Time COVID-19 Comment:Sx's started 05/23/22 tested + 05/25/22 05/25/2022 06/08/2022 10/09/2023 9:12 AM E DT documented as of this encounter Care Teams Last Greaser Relationship Specialty Start Date End Date Stephany Elise MD PCP - General Internal Medicine 09/11/18 03/11/21 Kamlesh Patel MD PCP - General Internal Medicine 03/12/21 03/07/22 Jorden Kramer [address] [place] [address] PCP - General Internal Medicine 03/08/22 03/08/22 Maida Ann MD [address] [place] [address] PCP - General Internal Medicine 03/09/22 documented as of this encounter
--- OUTSIDE RECORDS SUMMARY | 2024-08-28 14:11 | XMS_ITS | Encounter Summary ---
Author Organization [facility] Address [address] [place] [address] Care Team Providers Care Beet Worker Name Role Phone Maida Ann MD Primary Care Pr ovider Encounter Details Date Type Department Care Team (Late Contact Info) Description 08/19/2024 Telephone Adult Medicine [address] [phone] Ashley Hernandez, ADALBERTO Social History Tobacco Use Types Packs/Day Years [...] Description 11/05/2024 2:00 PM EDT Consult Urogynecology [address] [phone] Sandra Monk MD [address] [place] [address] [address] [place] [address] 12/19/2024 10:30 AM EDT Office Visit Pulmonolgy - [employer] [address] [facility] [address] [place] [address] Milady Hogan NP [address] [facility] [address] [place] [address] documented as of this encounter Visit Diagnoses Not on filedocumented in this encounter Care Teams Beet Worker Relationship Specialty Start Date End Date Maida Ann MD [address] [facility], [place] PCP - General Internal Medicine 03/09/22 documented as of this encounter
--- OUTSIDE RECORDS SUMMARY | 2024-08-28 14:12 | XMS_ITS | Encounter Summary ---
Author Organization [facility] Address [address] [place] [address] Care Team Providers Care Surveillance Camera Technician Name Role Phone Maida Ann MD Primary Care Provider + Encounter Details Date Type Department Care Team Description 10/17/2023 Tug Boat Captain Report Medical Records [address] [place] [address] Matt Aguillon, PAMegC Social History Tobacco Use Types Packs/Day Years [...] on filedocumented in this encounter Care Teams Surveillance Camera Technician Relationship Specialty Start Date End Date Maida Ann MD [address] [place] [address] PCP - General Internal Medicine 03/09/22 documented as of this encounter
--- OUTSIDE RECORDS SUMMARY | 2024-08-28 14:12 | XMS_ITS | Encounter Summary ---
Author Organization [facility] Address [address] [place] [address] Care Team Providers Care Baggage Smasher Name Role Phone Maida Ann MD Primary Care Provider + Encounter Details Date Type Department Care Team Description 01/21/2024 Pt. Non Urgent Medical Question OBGYN - [place] [address] [place] [address] Carisa Napier MD [address] [place] [phone] Painful urination (Primary Dx) Social History Tobacco Use Types Packs/Day Years [...] encounter Miscellaneous Notes * Telephone Encounter - Phyllis Jiménez R.N. - 01/22/2024 10:07 AM EDTFrom: Shanice Ponce To: Tom Napier Sent: 01/21/2024 4:45 PM EDT Subject: Bladder infection or UTI? So just my luck I am pretty sure I have some sort of infection probably a UTI because I am the elias of those . It did burn the first two days after surgery now it is just painful to urinate and feels full all the time. I am m going a lot at night which is keep me up but overall thank you for beingthe one to actuall y help me . Now to just get rid of these UTIs documented in this encounter Plan of Treatment Not on file documented as of this encounter Results * URINE, CULTURE (01/22/2024 2:47 PM EDT) URINE CULTURE ESCHERICHIA COLI 01/24/2024 8:18 AM EDT [facility] Comment: COLONY COUNT >100,000 Urine (Urine) 01/22/2024 2:4 7 PM EDT 01/22/2024 2:47 PM EDT Narrative [facility] - 01/24/2024 8:18 AM EDT Release to patient->Immediate Organism Antibiotic Method Susceptibility Escherichia coli TRIMETHOPRIM/SULFAMETHOXAZOLE <=20: Susceptible Escherichia coli Amoxicillin/Clavulanic Acid >=32: Resistant Escherichia coli Ampicillin/Sulbactam >=32: Resistant Escherichia coli CEFAZOLIN,URINE 2: Susceptible Escherichia coli Cefoxitin <=4: Susceptible Escherichia coli Ceftazidime <=0.5: Susceptible Escherichia coli Ceftriaxone <=0.25: Susceptible Escherichia coli CEFEPIME <=0.12: Susceptible Escherichia coli Ciprofloxacin <=0.06: Susceptible Escherichia coli Gentamicin <=1: Susceptible Escherichia coli LEVOFLOXACIN <=0.12: Susceptible Escherichia coli Meropenem <=0.25: Susceptible Escherichia coli Nitrofurantoin <=16: Susceptible Escherichia coli Amikacin 2: Susceptible Escherichia coli Piperacillin/Tazobactam 8: Susceptible Carisa Napier MD LAB [facility] Tangible Cryptography documented in this encounter Visit Diagnoses Diagnosis Painful urination- Primary Dysuria documented in this encounter Care Teams Baggage Smasher Relationship Specialty Start Date End Date Maida Ann MD [address] [place] [id number] PCP - General Internal Medicine 03/09/22 documented as of this encounter
--- OUTSIDE RECORDS SUMMARY | 2024-08-28 14:12 | XMS_ITS | Clinical Summary ---
Author Organization [facility] Address [address] [facility] [place] [address] Care Team Providers Care Second Time Worker Name Role Phone Maida Ann MD Primary Care Provider + Allergies Active Allergy Reactions Severity Noted Date Comments Glatiramer-Mannitol Hives/Urticaria 10/18/2014 Medications Medication Sig Dispensed Refills Start Date End Date Status pramipexole (MIRAPEX) 0.125 MG tablet Take 0.125 mg by mouth at bedtime. 0 Active Ocrelizumab (OCREVUS) 300 MG/10ML Solution Inject into the vein. Every 6 months 0 07/01/2020 Active fluticasone 50 MCG/ACT nasal spray SHAKE LIQUID AND USE 2 SPRAYS IN EACH NOSTRIL DAILY 16 mL 3 08/26/2022 Active hydrOXYzine (ATARAX) 10 MG tabletIndications:A nxiety and depression Take 1 Tablet by mouth 3 times daily as needed for Anxiety. 180 Tablet 0 10/25/2022 Active Baclofen 5 MG Tab 1 TABLET BY MOUTH 2 TIMES A DAY,X30 DAYS NEEDED FOR SPASMS 0 03/17/2023 Active clobetasol (TEMOVATE) 0.05 % creamIndications:Vu lvar dermatitis APPLY TO AFFECTED AREA EVERY 2-3 DAYS 30 g 0 10/10/2023 Active albuterol (PROVENTIL) (2.5 MG/3ML) 0.083% nebulizer solutionIndications :Mild intermittent asthma without complication Take 1 Vial by nebulization every 6 hours as needed for Wheezing. 150 mL 0 11/27/2023 Active citalopram (CELEXA) 20 MG tabletIndications:A nxiety and depression TAKE 1 TABLET BY MOUTH EVERY DAY 90 Tablet 1 01/03/2024 Active omeprazole (PRILOSEC) 20 MG capsuleIndications: Gastroesophageal reflux disease without esophagitis Take 1 Capsule by mouth at bedtime. 90 Capsule 0 01/03/2024 Active Semaglutide-Weight Management (Wegovy) 0.25 MG/0.5ML Solution Auto-injectorIndica tions:Morbid obesity with BMI of 45.0-49.9, adult ([facility]) Inject 0.25 mg into the skin once a week. 2 mL 1 02/23/2024 Active Cholecalciferol (Vitamin D3) 125 MCG (5000 UT) CapIndications:Kerry min D insufficiency TAKE 1 CAPSULE BY MOUTH EVERY DAY 90 Capsule 1 03/13/2024 Active norethindrone (AYGESTIN) 5 MG tablet Take 1 Tablet by mouth daily. 90 Tablet 3 02/28/2024 Active metformin (GLUCOPHAGE-XR) 500 MG 24 hr tabletIndications:P COS (polycystic ovarian syndrome) Take 1 Tablet by mouth 2 times daily (before meals). 60 Tablet 2 02/29/2024 Active Ventolin HFA 108 (90 Base) MCG/ACT Aero SolnIndications:Mil d intermittent asthma without complication Inhale 2 Puffs into the lungs 4 times daily as needed for Cough, Wheezing or Shortness of Breath (or chest tightness). 18 g 6 03/14/2024 Active furosemide (LASIX) 20 MG tabletIndications:L eg swelling TAKE 1 TABLET BY MOUTH DAILY NEEDED (LEG SWELLING). 90 Tablet 1 04/11/2024 Active estradiol (ESTRACE VAGINAL) 0.1 MG/GM vaginal creamIndications:Aburto rgical menopause Apply a small pea sized amount (0.5 g) to the vaginal opening Monday, Monday, Monday 42.5 g 1 04/03/2024 5 Active glucose monitoring kit (FREESTYLE) monitoring kitIndications:Type 2 diabetes mellitus without complication, without long-term current use of insulin ([facility]) Check sugars upto 2 times a day 1 Kit 0 06/01/2024 5 Active FreeStyle Lancets MiscIndications:Typ e 2 diabetes mellitus without complication, without long-term current use of insulin ([facility]) Check sugars upto two times a day 100 Each 1 06/01/2024 Active Glucose Blood (FREESTYLE LITE) StripIndications:Ty pe 2 diabetes mellitus without complication, without long-term current use of insulin (HCC) 1 Strip by In Vitro route 2 times daily. 100 Strip 2 06/01/2024 Active Active Problems Problem Noted Date Surgical menopause 02/28/2024 Last Assessment & Plan: Encouraged use of oral Aygestin daily for add back and continue topical estradiol cream vaginally MWF. Restless leg syndrome 01/03/2024 Plantar fasciitis of left foot 3 Achilles tendon tear, left, initial enco unter 06/12/2023 Gastroesophageal reflux disease without esophagitis 06/12/2023 Recurrent UTI 06/12/2023 Last Assessment & Plan: Will continue to follow with Urology. May like to take a sample prior to surgery to make sure no active infection. Vulvar dermatitis 06/01/2023 Last Assessment & Plan: Rx clobetasol refilled. Pelvic pain 06/01/2023 Last Assessment & Plan: Pelvic ultrasound ordered to further evaluate pain. IUD strings visible on exam, however discussed need for US to determine if IUD in in appropriate position. Will also evaluate left ovary for cysts given history of ovarian cyst requiring right oophorectomy in the past. Abnormal uterine bleeding (AUB) 06/01/20 23 Last Assessment & Plan: Pt was counseled [...] needs to change anything with Ocrevus perioperatively. 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 Morbid obesity with BMI of 45.0-49.9, ad ult 06/05/2017 DALE (obstructive sleep apnea) 06/02/2015 Overview: Dx [facility] - followup there Excessive sweating 02/23/2015 Multiple sclerosis, relapsing-remitting 02/23/2015 Overview: Abnormalities on MRI 2013 (progression from previous). LP done in 06/2014 at [facility] - positive for MS. Sees Dr. Nona Armstrong at [facility]. Did not tolerate Copaxone and Rebif. 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 SS-A negative. RACHEL 1:100 Fatty liver 08/12/2009 Overview: biopsy proven 2003 biopsy proven 2003 NIKKIE (mycobacterium avium-intracellulare) 11/09/2007 Overview: 2006 - Seen by Dr. Serrano lung nodules 03/29/2007 Overview: Mycobacterium avium intracellulare Saw Dr. Serrano, open lung biopsy and bronchoscopy Resolved Problems Problem Noted Date Resolved Date Vaginal irritation 07/07/2020 04/18/2023 Last Assessment & Plan: GC/CT and wet prep done today, will treat as indicated. Discussed vulvar hygiene. Recommend sitz baths and to soak and seal with emoliant like vaseline or coconut oil. Biopsy performed due to suspicion for lichen sclerosus. Will call patient with results. Patient to follow-up in 2 weeks. Anxiety 12/27/2018 12/27/2018 Adjustment disorder 12/29/2010 10/25/2022 Depression 05/24/2010 12/29/2010 Encounters Date Type Specialty Care Team Description 05/31/2024 Orders Only Lab Prediabetes; Recurrent UTI 05/31/2024 Telephone Adult Maida Clmeents MD Form 05/31/2024 Pt. Non Urgent Medical Question Endocrinology Yamil Toledo MD Type 2 diabetes mellitus without complication, without long-term current use of insulin (HCC) (Primary Dx) 05/28/2024 Pt. Non Urgent Medical Question Adult Maida Clements MD Prediabetes (Primary Dx); Recurrent UTI from Last 3 Months Immunizations Name Administration Dates Next Due COVID-19 (Pfizer) Pt Reported 05/24/2021, 021,11/16/2020 Influenza (> 6 Months) 05/18/2022,2019,03/24/2018,05/04,06/04/2012,05/12/2011,04/30/2010 ,07/17/2009,04/29/2008,05/25/2007 Influenza (>6 Months) Split Preservative Free 05/04/2016 Influenza Flu (PT Reported) 05/08/2019, 8,05/04/2016 Influenza H1N1 Pandemic Flu Vaccine 07/17/2009 Influenza Vaccine-quadrivale nt 4 Years Plus 05/15/2023,05/18/2022,07/15/2021,04/08,05/08/2019,03/24/2018,04/06/2017 Pneumoccoccal(Adult) Polysac charide PPSV23 10/10/2013 TD (STATE SUPPLIED FOR ADULT S AND CHILDREN) 11/02/2006 Tdap 10/10/2013 Family History Medical History Relation Name Comments Strabismus Aunt Alcohol Abuse Brother Arthritis Father Diabetes Father Cataract Maternal Grandmother Glaucoma Maternal Grandmother Arthritis Mother fibromyalgia Glaucoma Mother Multiple Sclerosis Mother's side grandfat her, uncle, 2 of the uncle's kids (1st cousins) Blindness Other daughter Strabismus Other daughter Cancer of the Breast Paternal Grandmother Macular Degeneration Negative Hx Relation Name Status Comments Aunt Brother [...] file Not on file Not on file Last Filed Vital Signs Vital Sign Reading Time Taken Comments Blood Pressure 110/67 04/11/2024 1:03 PM EDT Pulse 92 04/11/2024 1:03 PM EDT Temperature 36.4 ??C (97.5 ??F) 04/11/2024 1:03 PM ED T Respiratory Rate 16 02/13/2024 1:38 PM EDT Oxygen Saturation 97% 04/11/2024 1:03 PM EDT Inhaled Oxygen Concentration - - Weight 137.9 kg (304 lb) 04/11/2024 1:03 PM EDT Height 167.6 cm (5' 6 ) 04/11/2024 1:03 PM EDT Body Mass Index 49.07 04/11/2024 1:03 PM EDT Plan of Treatment Health Maintenance Due Date Last Done Comments DTAP/TDAP/TD (2 - Td or Tdap) 10/11/2023 10/10/2013, 11/02/2006 DIABETES: ANNUAL EYE EXAM 02/22/20242022, 02/21/2023 (External Completion), 09/17/2014, Additional history exists Covid-19 Vaccine (2022- 4 season) 2024 05/24/2021, 12/08/2020, 11/16/2020 INFLUENZA (#1) 2024 05/15/2023, 04/30, 05/18/2022, Additional history exists DIABETES/HEART DISEASE: ISAURO ALMANZA CHOLESTEROL (LDL) 05/01/2024 05/01/2023, 06/08/2022, 04/13/2021, Additional history exists DIABETES: ANNUAL URINE PROTE IN TEST (MICROALBUMIN) 05/01/2024 05/01/2023, 06/27/2022, 06/13/2011 DIABETES: ANNUAL FOOT EXAM 06/12/2024 06/12/2023 BMI CHECK/ADVISE 07/31/2024 04/11/2024, , 11/27/2023, Additional history exists DEPRESSION SCREENING/FOLLOWUP 07/31/2024, 01/03/2024, 06/15/2023, Additional history exists SOCIAL NEEDS SCREENING 07/31/2024 , 06/08/2022, 08/19/2020, Additional history exists DIABETES: BLOOD SUGAR CONTRO L TEST (HGBA1C) 08/31/2024 05/31/2024, 12/21/2023, 08/24/2023, Additional history exists MAMMOGRAM 09/26/2024 09/26/2023 CERVICAL CANCER SCREENING 02/20/20252019, 04/08/2013 (External Completion of test per patient (Patient reports normal results)), 10/05/2011, Additional history exists BASELINE HEALTH EXAM 40-64 01/30/202601/30, 05/01/2023, 05/01/2023, Additional history exists PNEUMOCOCCAL VACCINE FOR HIG H RISK PATIENTS (#2) 2047 10/10/2013 Procedures Procedure Name Priority Date/Time Associated Diagnosis Comments HEMOGLOBIN A1C Routine 05/31/2024 2:49 PM EDT Prediabetes Recurrent UTI CHG BASIC METABOLIC PANEL CALCIUM TOTAL Routine 05/31/2024 2:49 PM EDT Prediabetes Recurrent UTI from Last 3 Months Results * (ABNORMAL) CHG BASIC METABOLIC PANEL CALCIUM TOTAL (05/31/2024 2:49 PM EDT) GLUCOSE 215(H) 70 - 100 mg/dL 05/31/2024 6:44 PM EDT [facility] Comment:Reference range appl icable to fasting specimens only Blood Urea Nitrogen 11 5 - 25 mg/dL 05/31/2024 6:44 PM EDT [facility] CREAT 0.79 0.5 - 1.1 mg/dL 05/31/2024 6:44 PM EDT [facility] GLOMERULAR FILTRATION RATE 96 >60 05/31/2024 6:44 PM EDT [facility] Comment: This eGFR result was calculated using the CKD-EPI 2020 Creatinine Equation NA 138 135 - 145 mEq/L 05/31/2024 6:44 PM EDT [facility] K 4.2 3.5 - 5.5 mmol/L 05/31/2024 6:44 PM EDT [facility] CL 105 96 - 110 mmol/L 05/31/2024 6:44 PM EDT [facility] CARBON DIOXIDE (CO2) 29 21 - 32 mmol/L 05/31/2024 6:44 PM EDT [facility] ANION GAP 4 3 - 11 05/31/2024 6:44 PM EDT [facility] CALCIUM 9.5 8.5 - 10.5 mg/dL 05/31/2024 6:44 PM EDT [facility] 05/31/2024 2:49 PM EDT 05/31/2024 2:50 PM EDT Narrative [facility] - 05/31/2024 6:44 PM EDT Release to patient->Immediate India Collins PA-C [facility] * (ABNORMAL) HEMOGLOBIN A1C (05/31/2024 2:49 PM EDT) GLYCATED HEMOGLOBIN A1C 8.0(H) <6.5 % 05/31/2024 9:30 PM EDT [facility] ESTIMATED AVERAGE GLUCOSE 183 mg/dL 05/31/2024 9:30 PM EDT [facility] 05/31/2024 2:49 PM EDT 05/31/2024 2:50 PM EDT Narrative [facility] - 05/31/2024 9:30 PM EDT Release to patient->Immediate India Collins PA-C [facility] from Last 3 Months Guarantor Name Account Type Relation to Patient Date of Phone Billing Address Rashid Ponce Individual Self 1980 [address] [place] [address] Rashid Ponce Personal/Family Self 1980 [address] [facility] [address] [address] Care Teams Second Time Worker Relationship Specialty Start Date End Date Maida Ann MD [address] [place] [id number] PCP - General Internal Medicine 03/09/22
--- OUTSIDE RECORDS SUMMARY | 2024-08-28 14:12 | XMS_ITS | Encounter Summary ---
Author Organization [facility] Address [address] [place] [address] Care Team Providers Care Caustic Loader Name Role Phone Stephany Elise MD Primary Care Provider UnaJames Strauss Primary Care Provider Unav Stephany Esposito MD Primary Care Provider Sherrellva Kamlesh Philip MD Primary Care Provider SherrellvaJorden Hernandez Primary Care Provider [phone] Maiad Ann MD Primary Care Provider + Reason for Referral * Radiology Services - Authorized/Booked Specialty Diagnoses / Procedures Referred By Michael alvarez Referred To Contact Radiology Diagnoses Epigastric pain Procedures CT ABD & PELVIS W/O CONTRAST Stephany Elise MD [address] [place] [address] [address] Referral ID Status Reason Start Date Expiration Date V isits Requested Visits Authorized [id number] Authorized/B ooked 12/08/2011 03/07/2012 1 1 Encounter Details Date Type Department Care Team Description 12/06/2011 Pt. Non Urgent Medical Question Adult Medicine [address] [address] Stephany Elise MD Epigastric pain (Primary Dx) Social History Tobacco Use Types [...] as of this encounter Progress Notes * Teresa Metcalf M.A. - 12/06/2011 1:31 PM EDTFrom: GERHARD HENDERSON To: Stephany Elise MD Sent: MonDecember 06, 2011 1:12 PM Subject: stomach pain I am still having stomach pain is there anyway we could get the scan u were talking about. documented in this encounter Plan of Treatment Not on file documented as of this encounter Results * CT ABD & PELVIS W/O CONTRAST (12/15/2011 11:24 AM EDT) 12/15/2011 12:2 8 PM EDT Impressions JAY SOLARES OTHER EXTERNAL - 12/15/2011 8:21 PM EDT : ??Mild hepatomegaly. ??Evidence of mild to moderate hepatic steatosis, stable since 09/04/09. ??Right nephrolithiasis, slightly increased. ??No other significant findings. Vishnu Moody MD cc: ? DD: ??12/15/2011 12:28:05/DT: ??12/15/2011 17:55:12 Narrative JAY SOLARES OTHER EXTERNAL - 12/15/2011 8:21 PM EDT EXAM: ??CT OF THE ABDOMEN AND PELVIS HISTORY: ??Epigastric pain, vomiting and nausea for 2 weeks. TECHNIQUE: ??Multidetector scans at 5 mm intervals after oral contrast. Comparison with CT on 09/04/09. FINDINGS: ??There is focal pleural and parenchymal scarring in the inferior right chest which is stable. ??The liver is mildly enlarged with mildly to moderately decreased attenuation values averaging 30 HU. ??This is unchanged. ??The spleen is borderline enlarged but smaller compared with the previous exam. ??There is no evidence of biliary tract dilatation post cholecystectomy. ??A 6 x 7 mm calyceal stone in the upper pole of the right kidney is slightly larger. ??There is a new 4 mm calyceal stone in the right lower pole. ??No evidence of nephrolithiasis on the left. ??Neither kidney is hydronephrotic. ??The ureters and bladder are unremarkable. ??There is no evidence of bowel wall abnormalities or bowel obstruction. ??The pancreas and adrenal glands are within normal limits. ??Sections through the pelvis show no evidence of uterine or ovarian enlargement. ??There is no evidence of a mass, hernia or inflammatory process. Procedure Note Vishnu Moody MD - 12/15/2011 EXAM: CT OF THE ABDOMEN AND PELVIS HISTORY: Epigastric pain, vomiting and nausea for 2 weeks. TECHNIQUE: Multidetector scans at 5 mm intervals after oral contrast. Comparison with CT on 09/04/09. FINDINGS: There is focal pleural and parenchymal scarring in theinferior right chest which is stable. The liver is mildly enlarged with mildlyto moderately decreased attenuation values averaging 30 HU. This is unchanged. The spleen is borderline enlarged but smaller compared withthe previous exam. There is no evidence of biliary tract dilatation post cholecystectomy. A 6 x 7 mm calyceal stone in the upper pole of theright kidney is slightly larger. There is a new 4 mm calyceal stone in theright lower pole. No evidence of nephrolithiasis on the left. Neither kidneyis hydronephrotic. The ureters and bladder are unremarkable. There is no evidence of bowel wall abnormalities or bowel obstruction. The pancreas and adrenal glands are within normal limits. Sections through thepelvis show no evidence of uterine or ovarian enlargement. There is noevidence of a mass, hernia or inflammatory process. IMPRESSION: Mild hepatomegaly. Evidence of mild to moderate hepatic steatosis, stable since 09/04/09. Right nephrolithiasis, slightly increased. No other significant findings. Vishnu Moody MD cc: / Stephany Elise MD CT SCANS [facility] OTHER EXTERNAL documented in this encounter Visit Diagnoses Diagnosis Epigastric pain- Primary Abdominal pain, epigastric Epigastric pain Abdominal pain, epigastric documented in this encounter Additional Health Concerns Infection Onset Date Last Indicated Resolved Time COVID-19 Comment:Sx's started 05/23/22 tested + 05/25/22 05/25/2022 06/08/2022 10/09/2023 9:12 AM E DT documented as of this encounter Care Teams Caustic Loader Relationship Specialty Start Date End Date Stephany Elise MD PCP - General 03/31/11 04/17/18 James Gomez PCP - General Internal Medicine 04/18/18 09/10/18 Stephany Elise MD PCP - General Internal Medicine 09/11/18 03/11/21 Kamlesh Patel MD PCP - General Internal Medicine 03/12/21 03/07/22 Jorden Kramer [address] [place] [address] PCP - General Internal Medicine 03/08/22 03/08/22 Maida Ann MD [address] [place] [address] PCP - General Internal Medicine 03/09/22 documented as of this encounter
--- OUTSIDE RECORDS SUMMARY | 2024-08-28 14:12 | XMS_ITS | Encounter Summary ---
Author Organization [facility] Address [address] [facility] [place] [place] [address] Care Team Providers Care Environmental Remediation Consultant Name Role Phone Maida Ann MD Primary Care Provider + Reason for Visit * Reason Onset Date Comments APPOINTMENT 06/23/2023 Encounter Details Date Type Department Care Team Description 06/23/2023 Telephone Pulmonology - [place] [address] [facility] [address] [place] [address] Milady Hogan APRN [address] [facility] [address] [place] [address] APPOINTMENT Social History Tobacco Use Types Packs/Day Years [...] suspected to have Coronavirus/COVID-19? No / Unsure 06/15/2023 9:46 AM EST documented as of this encounter Miscellaneous Notes * Telephone Encounter - Inez Mujica - 06/23/2023 9:53 AM EST LVM for patient Schedule NOV A 3 month follow up with Milady polk in [facility] when Milady returnes. documented in this encounter Plan of Treatment Not on file documented as of this encounter Visit Diagnoses Not on filedocumented in this encounter Additional Health Concerns Infection Onset Date Last Indicated Resolved Time COVID-19 Comment:Sx's started 05/23/22 tested + 05/25/22 05/25/2022 06/08/2022 10/09/2023 9:12 AM E DT documented as of this encounter Care Teams Environmental Remediation Consultant Relationship Specialty Start Date End Date Maida Ann MD [address] [place] [address] PCP - General Internal Medicine 03/09/22 documented as of this encounter
--- OUTSIDE RECORDS SUMMARY | 2024-08-28 14:12 | XMS_ITS | Encounter Summary ---
Author Organization [facility] Address [address] [place] [address] Care Team Providers Care Service Captain Name Role Phone Stephany Elise MD Primary Care Provider James Bear Primary Care Provider Stephany De La Torre MD Primary Care Provider Kamlesh Sanchez MD Primary Care Provider Jorden Padgett Primary Care Provider [phone] Maida Ann MD Primary Care Provider + Encounter Details Date Type Department Care Team Description 12/19/2011 Dye Machine Tender Report Medical Records [address] [place] [address] Aleksander Tovar MD Social History Tobacco Use Types Packs/Day [...] documented as of this encounter Care Teams Service Captain Relationship Specialty Start Date End Date Stephany Elise MD PCP - General 03/31/11 04/17/18 James Gomez PCP - General Internal Medicine 04/18/18 09/10/18 Stephany Elise MD PCP - General Internal Medicine 09/11/18 03/11/21 Kamlesh Patel MD PCP - General Internal Medicine 03/12/21 03/07/22 Jorden Kramer [address] [place] [address] PCP - General Internal Medicine 03/08/22 03/08/22 Maida Ann MD [address] [place] [address] PCP - General Internal Medicine 03/09/22 documented as of this encounter
--- OUTSIDE RECORDS SUMMARY | 2024-08-28 14:12 | XMS_ITS | Encounter Summary ---
Author Organization [facility] Address [address] [place] [address] Care Team Providers Care Public Relations Associate Name Role Phone Stephany Elise MD Primary Care Provider Kamlesh Sanchez MD Primary Care Provider Jorden Padgett Primary Care Provider [phone] Maida Ann MD Primary Care Provider + Encounter Details Date Type Department Care Team Description 05/12/2020 Automation Engineering Manager Report Medical Records [address] [place] [address] Nona Armstrong Social History Tobacco Use Types [...] documented as of this encounter Care Teams Public Relations Associate Relationship Specialty Start Date End Date Stephany Elise MD PCP - General Internal Medicine 09/11/18 03/11/21 Kamlesh Patel MD PCP - General Internal Medicine 03/12/21 03/07/22 Jorden Kramer [address] [place] [address] PCP - General Internal Medicine 03/08/22 03/08/22 Maida Ann MD [address] [place] [address] PCP - General Internal Medicine 03/09/22 documented as of this encounter
--- OUTSIDE RECORDS SUMMARY | 2024-08-28 14:12 | XMS_ITS | Encounter Summary ---
Author Organization [facility] Address [address] [place] [address] Care Team Providers Care Motorcycle Sales Associate Name Role Phone Stephany Elise MD Primary Care Provider Kamlesh Sanchez MD Primary Care Provider Jorden Padgett Primary Care Provider [phone] Maida Ann MD Primary Care Provider + Encounter Details Date Type Department Care Team Description 09/25/2019 Refill Adult Medicine [facility] [address] [place] [address] Stephany Elise MD Social History Tobacco Use Types Packs/Day [...] documented as of this encounter Care Teams Motorcycle Sales Associate Relationship Specialty Start Date End Date Stephany Elise MD PCP - General Internal Medicine 09/11/18 03/11/21 Kamlesh Patel MD PCP - General Internal Medicine 03/12/21 03/07/22 Jorden Kramer [address] [place] [address] PCP - General Internal Medicine 03/08/22 03/08/22 Maida Ann MD [address] [place] [address] PCP - General Internal Medicine 03/09/22 documented as of this encounter
--- OUTSIDE RECORDS SUMMARY | 2024-08-28 14:12 | XMS_ITS | Encounter Summary ---
Author Organization [facility] Address [address] [place] [address] Care Team Providers Care Scheduling Coordinator Name Role Phone Maida Ann MD Primary Care Provider + Reason for Visit * Reason Comments E-prescribe Rx Request Encounter Details Date Type Department Care Team Description 08/26/2022 Refill Adult Medicine [address] [address] Chula Kyle PA-C E-prescribe Rx Request Social History Tobacco [...] encounter Miscellaneous Notes * Telephone Encounter - Krystle Petit C.M.A. - 08/26/2022 2:00 PM EST Rx to pharmacy. vf * Telephone Encounter - Alysia Sharif M.A. - 08/26/2022 2:00 PM EST Faxed to pharmacy * Telephone Encounter - Tonya Jain M.A. - 08/26/2022 12:25 PM EST Last office visit 06/08/22 Next office visit 10/25/22 documented in this encounter Plan of Treatment Not on file documented as of this encounter Visit Diagnoses Not on filedocumented in this encounter Additional Health Concerns Infection Onset Date Last Indicated Resolved Time COVID-19 Comment:Sx's started 05/23/22 tested + 05/25/22 05/25/2022 06/08/2022 10/09/2023 9:12 AM E DT documented as of this encounter Care Teams Scheduling Coordinator Relationship Specialty Start Date End Date Maida Ann MD [address] [place] [address] PCP - General Internal Medicine 03/09/22 documented as of this encounter
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
--- OUTSIDE RECORDS SUMMARY | 2024-08-28 14:12 | XMS_ITS | Encounter Summary ---
Author Organization [facility] Address [address] [place] [address] Care Team Providers Care Tools Administrator Name Role Phone Maida Ann MD Primary Care Provider + Encounter Details Date Type Department Care Team Description 02/09/2024 Telephone [facility] [employer] [address] [place] [address] Carisa Napier MD [address] [place] [address] Social History Tobacco Use Types Packs/Day Years [...] Miscellaneous Notes * Telephone Encounter - Alysia Esposito R.N. - 02/09/2024 4:31 PM EDT Pt called message left with providers message Rx sent to pharmacy for Pos result UTI documented in this encounter Plan of Treatment Not on file documented as of this encounter Visit Diagnoses Not on filedocumented in this encounter Care Teams Tools Administrator Relationship Specialty Start Date End Date Maida Ann MD [address] [place] [address] PCP - General Internal Medicine 03/09/22 documented as of this encounter
--- OUTSIDE RECORDS SUMMARY | 2024-08-28 14:12 | XMS_ITS | Encounter Summary ---
Author Organization [facility] Address [address] [place] [address] Care Team Providers Care Robot Programmer Name Role Phone Stephany Elise MD Primary Care Provider James Bear Primary Care Provider Stephany De La Torre MD Primary Care Provider Kamlesh Sanchez MD Primary Care Provider Jorden Padgett Primary Care Provider [phone] Maida Ann MD Primary Care Provider + Encounter Details Date Type Department Care Team Description 05/23/2016 Release of Information Medical Records [address] [place] [id number] Abstract, Provider Social History Tobacco Use Types [...] documented as of this encounter Care Teams Robot Programmer Relationship Specialty Start Date End Date Stephany Elise MD PCP - General 03/31/11 04/17/18 James Gomez PCP - General Internal Medicine 04/18/18 09/10/18 Stephany Elise MD PCP - General Internal Medicine 09/11/18 03/11/21 Kamlesh Patel MD PCP - General Internal Medicine 03/12/21 03/07/22 Jorden Kramer [address] [place] [address] PCP - General Internal Medicine 03/08/22 03/08/22 Maida Ann MD [address] [place] [address] PCP - General Internal Medicine 03/09/22 documented as of this encounter
--- OUTSIDE RECORDS SUMMARY | 2024-08-28 14:12 | XMS_ITS | Encounter Summary ---
Author Organization [facility] Address [address] [place] [address] Care Team Providers Care Lace And Textiles Restorer Name Role Phone Stephany Elise MD Primary Care Provider Kamlesh Sanchez MD Primary Care Provider Jorden Padgett Primary Care Provider [phone] Maida Ann MD Primary Care Provider + Reason for Visit * Reason Onset Date Comments refill request 06/07/2019 Encounter Details Date Type Department Care Team Description 06/07/2019 Refill Adult Medicine [address] [address] Stephany Elise MD refill request Social History [...] Telephone Encounter - Naida Hemphill M.A. - 06/11/2019 12:32 PM EST Please review if appropriate, pt hasn't returned my call. * Telephone Encounter - Naida Hemphill M.A. - 06/07/2019 3:40 PM EST LM for patient to return our call [phone] Last prescribed 11/20/17 by default provider, will await pt return call. * Telephone Encounter - Mahogany Boswell - 06/07/2019 1:15 PM EST Patient would like script to be: E-PRESCRIBED/FAXED TO PHARMACY WHEN WAS THE PATIENT'S LAST APPOINTMENT IN ADULT MEDICINE? 05/09/2019 WHEN WAS THE LAST TIME THE PATIENT SAW THEIR PCP? 12/31/2018 Does patient have an upcoming appointment? Yes 09/10/19 (THE MEDICATION REQUESTED IS ON THE MED [...] N/A Patients current insurance carrier is: Payor: [employer] FFS / Plan: [employer] / Product Type: MEDICAID RISK documented in this encounter Plan of Treatment Not on file documented as of this encounter Visit Diagnoses Not on filedocumented in this encounter Additional Health Concerns Infection Onset Date Last Indicated Resolved Time COVID-19 Comment:Sx's started 05/23/22 tested + 05/25/22 05/25/2022 06/08/2022 10/09/2023 9:12 AM E DT documented as of this encounter Care Teams Lace And Textiles Restorer Relationship Specialty Start Date End Date Stephany Elise MD PCP - General Internal Medicine 09/11/18 03/11/21 Kamlesh Patel MD PCP - General Internal Medicine 03/12/21 03/07/22 Jorden Kramer [address] [place] [address] PCP - General Internal Medicine 03/08/22 03/08/22 Maida Ann MD [address] [place] [phone] PCP - General Internal Medicine 03/09/22 documented as of this encounter
--- OUTSIDE RECORDS SUMMARY | 2024-08-28 14:12 | XMS_ITS | Encounter Summary ---
Author Organization [facility] Address [address] [place] [address] Care Team Providers Care Cutter Aluminum Sheet Name Role Phone Kamlesh Patel MD Primary Care Provider Jorden Padgett Primary Care Provider [phone] Maida Ann MD Primary Care Provider + Reason for Visit * Reason Onset Date Comments Transfer Records 10/21/2021 OBGYN Encounter Details Date Type Department Care Team Description 10/21/2021 Telephone OBGYN - [facility] [address] [place], [place] [phone] Jesus Jones DO Transfer Records (OBGYN) Social History Tobacco Use Types Packs/Day Years [...] encounter Miscellaneous Notes * Telephone Encounter - Karo Dove - 10/21/2021 11:45 AM EDT Fax received from [facility] requesting release of OBGYN records. Fax to [phone]. TAMI included. Fax passed to [facility]. Copy in [facility]. documented in this encounter Plan of Treatment Not on file documented as of this encounter Visit Diagnoses Not on filedocumented in this encounter Additional Health Concerns Infection Onset Date Last Indicated Resolved Time COVID-19 Comment:Sx's started 05/23/22 tested + 05/25/22 05/25/2022 06/08/2022 10/09/2023 9:12 AM E DT documented as of this encounter Care Teams Cutter Aluminum Sheet Relationship Specialty Start Date End Date Kamlesh Patel MD PCP - General Internal Medicine 03/12/21 03/07/22 Jorden Kramer [address] [place] [address] PCP - General Internal Medicine 03/08/22 03/08/22 Maida Ann MD [address] [place] [address] PCP - General Internal Medicine 03/09/22 documented as of this encounter
--- OUTSIDE RECORDS SUMMARY | 2024-08-28 14:12 | XMS_ITS | Encounter Summary ---
Author Organization [facility] Address [address] [place] [address] Care Team Providers Care Car Stereo Installer Name Role Phone Maida Ann MD Primary Care Provider + Reason for Visit * Reason Onset Date Comments medication problems 04/03/2023 Vomiting 04/03/2023 Encounter Details Date Type Department Care Team Description 04/03/2023 Pt. Non Urgent Medical Question Adult Medicine [address] [address] Maida Ann MD [address] [place] [address] [phone] Social History Tobacco Use Types Packs/Day Years [...] suspected to have Coronavirus/COVID-19? No / Unsure 03/23/2023 4:28 PM EDT documented as of this encounter Progress Notes * Karli Costello R.N. - 04/04/2023 10:10 AM EDT Left vm for pt to return my call. Sent my chart message documented in this encounter Miscellaneous Notes * Telephone Encounter - Naida Hemphill M.A. - 04/04/2023 7:25 AM EDTFrom: Shanice Ponce To: Elke Ann Sent: 04/03/2023 3:32 PM EDT Subject: Pretty sure I am sick from the diabetes meds I have vomiting and can???t poop. It started out with can???t make a bowel movement I was using miralax now I am vomiting with the bowel movement documented in this encounter Plan of Treatment Not on file documented as of this encounter Visit Diagnoses Not on filedocumented in this encounter Additional Health Concerns Infection Onset Date Last Indicated Resolved Time COVID-19 Comment:Sx's started 05/23/22 tested + 1005/25/2022 06/08/2022 10/09/2023 9:12 AM E DT documented as of this encounter Care Teams Car Stereo Installer Relationship Specialty Start Date End Date Maida Ann MD [address] [place] [address] PCP - General Internal Medicine 03/09/22 documented as of this encounter
--- OUTSIDE RECORDS SUMMARY | 2024-08-28 14:12 | XMS_ITS | Encounter Summary ---
Author Organization [facility] Address [address] [place] [address] Care Team Providers Care High School Home Economics Teacher Name Role Phone Maida Ann MD Primary Care Provider + Encounter Details Date Type Department Care Team Description 04/18/2023 Telephone Adult Medicine [facility] [address] [place] [address] Maida Ann MD [address] [place] [address] Social History Tobacco Use Types Packs/Day Years [...] PM EDT documented as of this encounter Plan of Treatment Not on file documented as of this encounter Visit Diagnoses Not on filedocumented in this encounter Additional Health Concerns Infection Onset Date Last Indicated Resolved Time COVID-19 Comment:Sx's started 05/23/22 tested + 05/25/22 05/25/2022 06/08/2022 10/09/2023 9:12 AM E DT documented as of this encounter Care Teams High School Home Economics Teacher Relationship Specialty Start Date End Date Maida Ann MD [address] [place] [phone] PCP - General Internal Medicine 03/09/22 documented as of this encounter
--- OUTSIDE RECORDS SUMMARY | 2024-08-28 14:12 | XMS_ITS | Encounter Summary ---
Author Organization [facility] Address [address] [place] [address] Care Team Providers Care Juke Box Servicer Name Role Phone Maida Ann MD Primary Care Pr ovider Reason for Visit * Reason Comments Blood Sugar Problem Encounter Details Date Type Department Care Team ([facility] st Contact Info) Description 08/20/2024 1:45 PM EST Office Visit Endocrinology - [address] [phone] Yamil Toledo MD [address] [place] [address] Type 2 diabetes mellitus without complication, without long-term current use of insulin ([facility]) (Primary Dx) Social History Tobacco Use Types [...] on file documented as of this encounter Last Filed Vital Signs Vital Sign Reading Time Taken Comments Blood Pressure 101/62 08/20/2024 1:45 PM EST Pulse 94 08/20/2024 1:45 PM EST Temperature 35.9 ??C (96.6 ??F) 08/20/2024 1:45 PM ES T Respiratory Rate - - Oxygen Saturation 100% 08/20/2024 1:45 PM EST Inhaled Oxygen Concentration - - Weight 136 kg (299 lb) 08/20/2024 1:45 PM EST Height 167.6 cm (5' 6 ) 08/20/2024 1:45 PM EST Body Mass Index 48.26 08/20/2024 1:45 PM EST documented in this encounter Ordered Prescriptions Prescription Sig Dispensed Refills Start Date End Da te tirzepatide (Mounjaro) 5 mg/0.5 mL injectionIndications:Type 2 diabetes mellitus without complication, without long-term current use of insulin ([facility]) Inject 0.5 mL (5 mg total) under the skin every 7 (seven) days. 2 mL 2 08/20/2024 documented in this encounter Progress Notes * Yamil Toledo MD - 08/20/2024 1:45 PM EST Go up on mounjaro to 5 mg weekly Labs before next visit * Yamil Toledo MD - 08/20/2024 1:45 PM EST CHIEF COMPLAINT: Blood Sugar Problem IDENTIFIER: Shanice Ponce is a 44 y.o. old female. HPI: Patient is following for obesity. She has a h/o PCOS. Since last visit she has been diagnosed with DM type 2. We did try metformin, had diarrhea, stopped and switched over to mounjaro and currently on 2.5 mg weekly, had nausea in the beginning but now fine. A1c improved, feels well otherwise. Mild weight loss. Is working on diet. She had Menarche at 16, periods always irregular. Has had issues with bleeding, is post op now for hysterectomy ROS: As noted in HPI PAST MEDICAL HISTORY: Patient Active Problem List Diagnosis Date Noted Morbid obesity with BMI of 45.0-49.9, adult ([facility]) 07/17/2024 Surgical menopause 02/28/2024 Restless leg syndrome 01/03/2024 Achilles tendon tear, left, initial encounter 06/12/2023 Gastroesophageal reflux disease without esophagitis 06/12/2023 Plantar fasciitis of left foot 06/12/2023 Recurrent UTI 06/12/2023 Pelvic pain 06/01/2023 Vulvar dermatitis 06/01/2023 Gastroparesis 04/18/2023 Irritable bowel syndrome 04/18/2023 Microalbuminuria 04/18/2023 Vitamin D insufficiency 10/25/2022 Type 2 diabetes mellitus with microalbuminuria ([facility]) 07/28/2022 Reactive airway disease 08/28/2020 Subclinical hypothyroidism 05/14/2019 Anxiety and depression 12/27/2018 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 DALE (obstructive sleep apnea) 06/02/2015 Excessive sweating 02/23/2015 Multiple sclerosis, relapsing-remitting ([facility]) 02/23/2015 Sleep disorder 05/30/2011 Fatty liver 08/12/2009 NIKKIE (mycobacterium avium-intracellulare) ([facility]) 11/09/2007 Other emphysema ([facility]) 03/29/2007 Past Surgical History: Procedure Laterality Date BREAST REDUCTION 1999 PROCEDURE: IN BREAST REDUCTION CHOLECYSTECTOMY PROCEDURE: HISTORICAL CHOLECYSTECTOMY HYSTERECTOMY N/A 01/17/2024 PROCEDURE: HISTORICAL HYSTERECTOMY; COMMENT: TLH, LSO OTHER SURGICAL HISTORY PROCEDURE: LUNG BIOPSY THROUGH CHEST WALL; COMMENT: MAC OTHER SURGICAL HISTORY PROCEDURE: HISTORY OTHER; COMMENT: left cheek laceration, needed plastic surgeon OTHER SURGICAL HISTORY 2021 PROCEDURE: HISTORICAL PELVISCOPY; COMMENT: Lap right oophorectomy for ovarian cyst at [facility] TUBAL LIGATION PROCEDURE: HISTORICAL TUBAL LIGATION SOCIAL HISTORY: Social History Tobacco Use Smoking status: Never Smokeless tobacco: Never Substance Use Topics Alcohol use: No FAMILY HISTORY: Family History Problem Relation Name Age of Onset Alcohol abuse Brother Glaucoma Mother Arthritis Mother fibromyalgia Arthritis Father Diabetes Father Glaucoma Maternal Grandmother Cataracts Maternal Grandmother Breast cancer Paternal Grandmother 80.00 Strabismus Aunt Multiple sclerosis Mother's side grandfather, uncle, 2 of the uncle's kids (1st cousins) Blindness Other daughter Strabismus Other daughter Macular degeneration Neg Hx Family Status Relation Name Status Brother Mother Alive chol, fibromyalgia Father Alive diab, chol MGM (Not Specified) PGM Aunt (Not Specified) Mother's adan (Not Specified) Other daughter (Not Specified) Neg Hx (Not Specified) No partnership data on file MEDICATIONS DISCONTINUED/REORDERED: Medications Discontinued During This Encounter Medication Reason tirzepatide (Mounjaro) 2.5 mg/0.5 mL injection ACTIVE MEDICATIONS: Outpatient Medications Marked as Taking for the 08/20/24 encounter (Office Visit) with Yamil Toledo MD Medication Sig Dispense Refill albuterol 2.5 mg /3 mL (0.083 %) nebulizer solution Take 1 Vial by nebulization every 6 hours as needed for Wheezing. albuterol HFA (Ventolin HFA) 90 mcg/actuation inhaler Inhale 2 Puffs into the lungs 4 times daily as needed for Cough, Wheezing or Shortness of Breath (or chest tightness). baclofen (LIORESAL) 5 mg tablet cholecalciferol (VITAMIN D-3) 125 mcg (5,000 unit) capsule TAKE 1 CAPSULE BY MOUTH EVERY DAY citalopram (CeleXA) 20 mg tablet TAKE 1 TABLET BY MOUTH EVERY DAY clobetasoL (TEMOVATE) 0.05 % cream APPLY TO AFFECTED AREA EVERY 2-3 DAYS estradioL (ESTRACE) 0.01 % (0.1 mg/gram) vaginal cream Apply a small pea sized amount (0.5 g) to the vaginal opening Monday, Monday, Monday fluticasone propionate (FLONASE) 50 mcg/actuation nasal spray SHAKE LIQUID AND USE 2 SPRAYS IN EACHNOSTRIL DAILY furosemide (LASIX) 20 mg tablet TAKE 1 TABLET BY MOUTH DAILY NEEDED (LEG SWELLING). losartan (Cozaar) 25 mg tablet Take 1 tablet (25 mg total) by mouth 1 (one) time each day. 90 each 1 nitrofurantoin (MACRODANTIN) 100 mg capsule Take 1 capsule (100 mg total) by mouth at bedtime. norethindrone (AYGESTIN) 5 mg tablet Take 1 Tablet by mouth daily. ocrelizumab (Ocrevus) 30 mg/mL solution injection Inject into the vein. Every 6 months omeprazole (PriLOSEC) [address] capsule TAKE 1 CAPSULE BY MOUTH EVERYDAY AT BEDTIME 90 capsule 0 pramipexole (MIRAPEX) 0.125 mg tablet Take 0.125 mg by mouth at bedtime. rosuvastatin (CRESTOR) 10 mg tablet Take 1 tablet (10 mg total) by mouth 1 (one) time each day. 90 each 1 [DISCONTINUED] tirzepatide (Mounjaro) 2.5 mg/0.5 mL injection Inject 0.5 mL (2.5 mg total) under the skin every 7 (seven) days. 2 mL 1 ALLERGIES: Allergies Allergen Reactions Glatiramer Hives PHYSICAL EXAM: Visit Vitals BP 101/62 Pulse 94 Temp 35.9 ??C (96.6 ??F) (Temporal) Ht 1.676 m (66 ) Wt 136 kg (299 lb) SpO2 100% BMI 48.26 kg/m?? Smoking Status Never BSA 2.38 m?? APPEARANCE: Alert and in no acute distress EYES: EOMI NO resp distress NEURO: Awake, alert LABS: Lab Results Component Value Date TSH 2.95 08/13/2024 IMAGING: @LASTUSPELVIS@ IMPRESSION: 1. Type 2 diabetes mellitus without complication, without long-term current use of insulin ([facility]) PLAN: Had a detailed discussion, doing well over all,numbers can get better. Shall go up on the dose of mounjaro. Have already discussed possible side effects of the medication. All questions answered. Medication and lab orders: Orders Placed This Encounter Procedures BUN Creatinine Lipid panel Hemoglobin A1c Microalbumin creatinine urine ratio Hemoglobin and hematocrit Other orders: None Yamil Toledo MD on 08/20/2024 at 2:15 PM EST documented in this encounter Plan of Treatment Upcoming Encounters Date Type Department Care Team (Late st Contact Info) Description 11/05/2024 2:00 PM EDT Consult Urogynecology [address] [phone] Sandra Monk MD [address] [place] [address] [address] [place] [address] 12/19/2024 10:30 AM EDT Office Visit Pulmonolgy - [place] [address] [facility] [address] [place] [address] Milady Hogan NP [address] [facility] [address] [place] [address] Scheduled Orders Name Type Priority Associated Diagnoses Orde r Schedule BUN Lab Routine Type 2 diabetes mellitus without complication, without long-term current use of insulin (CMS/HCC) Expected: 10/29/2024 (Approximate), Expires: 07/31/2025 Creatinine Lab Routine Type 2 diabetes mellitus without complication, without long-term current use of insulin ([facility]) Expected: 10/29/2024 (Approximate), Expires: 07/31/2025 Lipid panel Lab Routine Type 2 diabetes mellitus without complication, without long-term current use of insulin ([facility]) Expected: 10/29/2024 (Approximate), Expires: 07/31/2025 Hemoglobin A1c Lab Routine Type 2 diabetes mellitus without complication, without long-term current use of insulin ([facility]) Expected: 10/29/2024 (Approximate), Expires: 07/31/2025 Microalbumin creatinine urine ratio Lab Routine Type 2 diabetes mellitus without complication, without long-term current use of insulin ([facility]) Expected: 10/29/2024 (Approximate), Expires: 07/31/2025 Hemoglobin and hematocrit Lab Routine Type 2 diabetes mellitus without complication, without long-term current use of insulin ([facility]) Expected: 10/29/2024 (Approximate), Expires: 07/31/2025 documented as of this encounter Visit Diagnoses Diagnosis Type 2 diabetes mellitus without complication, without long-term current use of insulin ([facility])- Primary documented in this encounter Discontinued Medications Medication Sig Discontinue Reason Start Date End Da te tirzepatide (Mounjaro) 2.5 mg/0.5 mL injectionIndications:Typ e 2 diabetes mellitus with other specified complication, without long-term current use of insulin ([facility]) Inject 0.5 mL (2.5 mg total) under the skin every 7 (seven) days. 07/29/2024 08/20/2024 documented as of this encounter Care Teams Juke Box Servicer Relationship Specialty Start Date End Date Maida Ann MD [address] [place], [place] PCP - General Internal Medicine 03/09/22 documented as of this encounter
--- OUTSIDE RECORDS SUMMARY | 2024-08-28 14:12 | XMS_ITS | Encounter Summary ---
Author Organization [facility] Address [address] [place] [address] Care Team Providers Care Fashion Merchandiser Name Role Phone Maida Ann MD Primary Care Provider + Encounter Details Date Type Department Care Team Description 02/06/2024 Pt. Non Urgent Medical Question OBGYN - [place] [address] [place] [address] Carisa Napier MD [address] [place] [phone] Social History Tobacco Use Types Packs/Day Years [...] on filedocumented in this encounter Care Teams Fashion Merchandiser Relationship Specialty Start Date End Date Maida Ann MD [address] [place] [address] PCP - General Internal Medicine 03/09/22 documented as of this encounter
--- OUTSIDE RECORDS SUMMARY | 2024-08-28 14:12 | XMS_ITS | Encounter Summary ---
Author Organization [facility] Address [address] [place] [address] Care Team Providers Care Senior Validation Engineer Name Role Phone Maida Ann MD Primary Care Provider + Encounter Details Date Type Department Care Team Description 09/15/2023 Dry Cleaner Presser Report Medical Records [address] [place] [address] Matt Aguillon, PAMegC Social History Tobacco Use [...] as of this encounter Care Teams Senior Validation Engineer Relationship Specialty Start Date End Date Maida Ann MD [address] [place] [id number] PCP - General Internal Medicine 03/09/22 documented as of this encounter
--- OUTSIDE RECORDS SUMMARY | 2024-08-28 14:12 | XMS_ITS | Data Portability ---
Author Organization [place] [facility] Address [address] [address] Care Team Providers Care Color Maker Formulator Name Role Phone ERI MONTEIRO Primary Care Provider [phone] Assessment Encounter Date Assessment Date Assessment LastModified by Organization Details LastModified Time 05/16/2024 05/16/2024 Patient with globus sensation presumed secondary to tonsil stones. Suggest Biotene mouthwash and streptococcal probiotics. Follow-up in 6 weeks. If she has persistent sensation, consider fiberoptic laryngoscopy yaniv Not available 05/16/2024 11:35:55 Plan of Treatment Reminders Order Date Submit Date Provider Last Modified By Organization Details Last Modified Time Details Appointments None record ed. Lab None record ed. Referral None record ed. Procedures None record ed. Surgeries None record ed. Imaging None record ed. Medication Orders None record ed. Patient TargetsNo targets recorded. Patient InstructionsNo instructions recorded. Reason for Referral None Reported. Problems Name Problem SNOMED Code Status Onset Date Resolution Date Notes Provider Name and Address Organization Details Recorded Time Feeling of lump in throat 950655496 Active 2023 RADHA SHIELDS MD [address] [address], [place], [phone], [place] [facility] 4 11:36:54 Chronic tonsillitis 05058111 Active 2023 RADHA SHIELDS MD [address] [facility] [address], [place], [address], [place] [facility] 4 11:37:01 Obstructive sleep apnea syndrome 57337929 Active 2023 RADHA SHIELDS MD [address] [facility] [address], [place], [address], [place] [facility] 11:39:13 Problem Notes None recorded. Procedures Surgical History Date Name Laterality Status Provider Name and Address Organization Details Recorded Time total abdominal hysterectomy with bilateral salpingo-oophorec rashard completed RADHA PIERSON MD [address] [address], [place], [address], [facility] - [facility] 05/16/2024 11:38:56 Imaging Results None recorded. Procedure Notes None recorded. Medical Equipment None Reported. Medications Name Sig Start Date Stop Date Status Note LastModified by Organization Details LastModified Time nystatin 100,000 unit/mL oral suspension TAKE 4 ML BY MOUTH 4 TIMES DAILY FOR 10 DAYS. 05/16 completed Not Available Not Available Not Available prednisone 10 mg tablet TAKE 3 TABLETS BY MOUTH DAILY FOR 3 DAYS, 2 TABLETS DAILY FOR 3 DAYS, 1 TABLET DAILY FOR 3 DAYS 05/16 completed Not Available Not Available Not Available albuterol sulfate 2.5 mg/3 mL (0.083 %) solution for nebulizatio n TAKE 1 VIAL BY NEBULIZAT ION EVERY 6 HOURS NEEDED FOR WHEEZING. active Not Available Not Available No t Available ibuprofen 800 mg tablet TAKE 1 TABLET BY MOUTH FOUR TIMES A DAY 05/16 completed Not Available Not Available Not Available phenazopyri dine 200 mg tablet TAKE 1 TABLET BY MOUTH EVERY 12 HOURS NEEDED FOR URINARY DISCOMFOR T active Not Available Not Available No t Available clobetasol 0.05 % topical cream APPLY TO AFFECTED AREA EVERY 2-3 DAYS active Not Available Not Available No t Available ciprofloxac in 500 mg tablet TAKE 1 TABLET BY MOUTH TWICE A DAY FOR 14 DAYS 05/16 completed Not Available Not Available Not Available sulfamethox azole 800 mg-trimetho prim 160 mg tablet TAKE 1 TABLET BY MOUTH TWICE A DAY FOR 3 DAYS 05/16 completed Not Available Not Available Not Available acetaminoph en 500 mg tablet TAKE 2 TABLETS BY MOUTH 4 TIMES A DAY active Not Available Not Available No t Available methenamine hippurate 1 gram tablet TAKE 1 TABLET BY MOUTH TWICE A DAY active Not Available Not Available No t Available citalopram 20 mg tablet TAKE 1 TABLET BY MOUTH EVERY DAY active Not Available Not Available No t Available aspirin 325 mg tablet,brenna yed release TAKE 1 TABLET BY MOUTH EVERY DAY FOR 30 DAYS 05/16 completed Not Available Not Available Not Available tamsulosin 0.4 mg capsule TAKE 1 CAPSULE BY MOUTH EVERY DAY AT BEDTIME active Not Available Not Available No t Available benzonatate 100 mg capsule TAKE 1 CAPSULE BY MOUTH THREE TIMES A DAY NEEDED FOR COUGH FOR 5 DAYS 05/16 completed Not Available Not Available Not Available cephalexin 500 mg capsule TAKE 1 CAPSULE BY MOUTH TWICE A DAY FOR 7 DAYS 05/16 completed Not Available Not Available Not Available pramipexole 0.125 mg tablet TAKE 2 TABLETS BY MOUTH DAILY AT BEDTIME active Not Available Not Available No t Available docusate sodium 100 mg capsule TAKE 1 CAPSULE BY MOUTH TWICE A DAY active Not Available Not Available No t Available omeprazole 20 mg capsule,del ayed release TAKE 1 CAPSULE BY MOUTH EVERYDAY AT BEDTIME active Not Available Not Available No t Available budesonide 0.5 mg/2 mL suspension for nebulizatio n INHALE 1 VIAL VIA NEBULIZER TWICE A DAY FOR 15 DAYS 05/16 completed Not Available Not Available Not Available furosemide 20 mg tablet TAKE 1 TABLET BY MOUTH DAILY NEEDED (LEG SWELLING) . active Not Available Not Available No t Available norethindro ne acetate 5 mg tablet TAKE 1 TABLET BY MOUTH EVERY DAY active Not Available Not Available No t Available cefuroxime axetil 500 mg tablet TAKE 1 TABLET BY MOUTH TWICE A DAY 05/16 completed Not Available Not Available Not Available estradiol 0.01% (0.1 mg/gram) vaginal cream INSERT 1 GM VAGINALLY 3 TIMES PER WEEK DIRECTED active Not Available Not Available No t Available albuterol sulfate HFA 90 mcg/actuati on aerosol inhaler INHALE 2 PUFFS INTO LUNGS 4 TIMES DAILY NEEDED COUGH/WHE EZING/SYLVIA RTNESS OF BREATH/CH EST TIGHTNESS active Not Available Not Available No t Available oxybutynin chloride 5 mg tablet TAKE 1 TABLET BY MOUTH THREE TIMES A DAY NEEDED FOR URINARY DISCOMFOR T active Not Available Not Available No t Available ondansetron 4 mg disintegrat ing tablet TAKE 1 TABLET BY MOUTH EVERY 8 HOURS NEEDED FOR NAUSEA 05/16 completed Not Available Not Available Not Available metformin ER 500 mg tablet,exte nded release 24 hr TAKE 1 TABLET BY MOUTH TWICE A DAY BEFORE MEALS 05/16 completed Not Available Not Available Not Available cholecalcif jose (vitamin D3) 125 mcg (5,000 unit) capsule TAKE 1 CAPSULE BY MOUTH EVERY DAY active Not Available Not Available No t Available amoxicillin 875 mg-potassiu m clavulanate 125 mg tablet TAKE 1 TABLET BY MOUTH TWICE A DAY FOR 10 DAYS 05/16 completed Not Available Not Available Not Available simethicone 80 mg chewable tablet CHEW 1 TABLET 4 TIMES A DAY NEEDED FOR GAS PAIN/BLOA TING active Not Available Not Available No t Available oxycodone 5 mg tablet TAKE 1 TABLET BY MOUTH EVERY 4 TO 6 HOURS NEEDED 05/16 completed Not Available Not Available Not Available nitrofurant oin monohydrate /macrocryst als 100 mg capsule TAKE 1 CAPSULE BY MOUTH TWICE A DAY FOR 7 DAYS 05/16 completed Not Available Not Available Not Available Ocrevus 30 mg/mL intravenous solution active Not Available Not Available Not Available baclofen 5 mg tablet TAKE 1 TABLET BY MOUTH 2 TIMES A DAY FOR 30 DAYS NEEDED SPASM 05/16 completed Not Available Not Available Not Available Paxlovid 300 mg (150 mg x 2)-100 mg tablets in a dose pack TAKE 3 TABLETS BY MOUTH DIRECTED ON DOSE PACK TWICE A DAY FOR 5 DAYS 05/16 completed Not Available Not Available Not Available Mounjaro 2.5 mg/0.5 mL subcutaneou s pen injector INJECT 2.5 MG SUBCUTANE OUSLY WEEKLY 05/16 completed Not Available Not Available Not Available Vitals None Recorded Social History None recorded. Functional Status None recorded. Mental Status None recorded. Family History Nothing Reported. Medical History Condition Response Kidney Disease Gynecological HistoryNo gynecological history recorded. Obstetrics History GPAL:G 0 P 0 0 0 0 Past Encounters Encounter ID Performer Location Encounter Start Date Encounter Closed Date Diagnosis/Indication Diagnosis SNOMED-CT Code Diagnosis ICD10 Code Diagnosis Note [id number] RADHA ARCOE MD [facility] [address] [phone] 05/16/2024 11:02:38 05/16/2024 11:44:35 Feeling of lump in throat 541224764 R09.89 Chronic tonsillitis 9097 9004 J35.01 biotene and Oral Biotic Obstructiv e sleep apnea syndrome 73130602 G47.33 continue CPAP Health Concerns Section Related Observation LastModified by Organization Detai ls LastModified Time None Recorded Concern Status LastModified by Organization Details LastModified Time None Recorded Advance Directives Directive None Recorded Payers Encounter Date Sequence Insurance Name Policy Number Policy Kelley Covered Member ID Kelley Member ID Guarantor Name 05/16/[address] [place] [address] [place] [place] [id number] Shanice Ponce [id number] Shanice Ponce Notes Date Note Type Note Provider Name and Address Organization Details Recorded Time 05/16/2024 text/html 43 y/o female wi th hx of MS reports sensation of something sticking in her throat she has had tonsil stones and feels irritation. She did have a diagnosis of polycystic ovary syndrome, however, she had a hysterectomy and oophorectomy. She was on metformin for weight loss she is no longer taking that. DALE with CPAP RADHA PIERSON MD [address] [place] [address], [place], [address], [facility] - [facility] 05/16/2024 12:35:03 OBGyn Episode No OBEpisode recorded.
--- OUTSIDE RECORDS SUMMARY | 2024-08-28 14:12 | XMS_ITS | Encounter Summary ---
Author Organization [facility] Address [address] [place] [address] Care Team Providers Care Corporate Training Manager Name Role Phone Maida Ann MD Primary Care Provider + Encounter Details Date Type Department Care Team Description 01/17/2024 Hospital Medical Records [address] [place] [address] [facility] Social History Tobacco Use Types Packs/Day Years [...] on filedocumented in this encounter Care Teams Corporate Training Manager Relationship Specialty Start Date End Date Maida Ann MD [address] [place] [phone] PCP - General Internal Medicine 03/09/22 documented as of this encounter
--- OUTSIDE RECORDS SUMMARY | 2024-08-28 14:12 | XMS_ITS | Encounter Summary ---
Author Organization [facility] Address [address] [place] [address] Care Team Providers Care Second Cook And Baker Name Role Phone Maida Ann MD Primary Care Provider + Encounter Details Date Type Department Care Team Description 03/27/2023 Printer Operator Report Medical Records [address] [place] [address] Leticia Burton NP Social History Tobacco Use Types Packs/Day Years [...] documented as of this encounter Care Teams Second Cook And Baker Relationship Specialty Start Date End Date Maida Ann MD [address] [place] [id number] PCP - General Internal Medicine 03/09/22 documented as of this encounter
--- OUTSIDE RECORDS SUMMARY | 2024-08-28 14:12 | XMS_ITS | Encounter Summary ---
Author Organization [facility] Address [address] [place] [address] Care Team Providers Care Laborer Powerhouse Name Role Phone Maida Ann MD Primary Care Provider + Encounter Details Date Type Department Care Team Description 02/15/2024 Telephone OBOlocodeN - [facility] [address] [place] [address] Carisa Napier MD [address] [place] [phone] Social History Tobacco Use Types Packs/Day Years [...] Telephone Encounter - Alysia Esposito R.N. - 02/15/2024 4:24 PM EDT Vm left with pt to ask about her VB and clots. Left message to return call. documented in this encounter Plan of Treatment Not on file documented as of this encounter Visit Diagnoses Not on filedocumented in this encounter Care Teams Laborer Powerhouse Relationship Specialty Start Date End Date Maida Ann MD [address] [place] [address] PCP - General Internal Medicine 03/09/22 documented as of this encounter
--- OUTSIDE RECORDS SUMMARY | 2024-08-28 14:12 | XMS_ITS | Encounter Summary ---
Author Organization [facility] Address [address] [place] [address] Care Team Providers Care Skiing Instructor Name Role Phone Maida Ann MD Primary Care Provider + Encounter Details Date Type Department Care Team Description 05/25/2022 Refill Adult Medicine [facility] [address] [place] [address] Brenda Tejada PA-C [address] [place] [address] Social History Tobacco Use Types Packs/Day Years [...] encounter Miscellaneous Notes * Telephone Encounter - Tonya Jain M.A. - 05/26/2022 3:44 PM EDT Last office visit 03/08/22 Next office visit 06/07/22 with new PCP ?? Pt with dx of Reactive airway disease as well as covid. documented in this encounter Plan of Treatment Not on file documented as of this encounter Visit Diagnoses Not on filedocumented in this encounter Additional Health Concerns Infection Onset Date Last Indicated Resolved Time COVID-19 Comment:Sx's started 05/23/22 tested + 05/25/22 05/25/2022 06/08/2022 10/09/2023 9:12 AM E DT documented as of this encounter Care Teams Skiing Instructor Relationship Specialty Start Date End Date Maida Ann MD [address] [place] [address] PCP - General Internal Medicine 03/09/22 documented as of this encounter
--- OUTSIDE RECORDS SUMMARY | 2024-08-28 14:12 | XMS_ITS | Encounter Summary ---
Author Organization [facility] Address [address] [place] [address] Care Team Providers Care Dairy Products Maker Name Role Phone Maida Ann MD Primary Care Provider + Reason for Visit * Reason Onset Date Comments Surgery (Schedule) 10/16/2023 Encounter Details Date Type Department Care Team Description 10/16/2023 Telephone OBGYN - [facility] [address] [place] [address] Carisa Chaney MD [address] [place] [phone] Surgery (Schedule) Social History Tobacco Use Types Packs/Day Years [...] encounter Miscellaneous Notes * Telephone Encounter - Karrie Pérez C.M.A. - 10/26/2023 3:06 PM EDT Robotic assisted total laparoscopic hysterectomy, bilateral salpingectomy, cystoscopy has been scheduled on 01/17/24 at [facility] with De. Chaney. Patient has been notified by phone and a letter has been sent to her. MD calendar has been updated and schedulers have been notified. DA * Telephone Encounter - Karrie Pérez C.M.A. - 10/26/2023 3:02 PM EDT Shanice Ponce has been referred by Dr. Chaney to Dr. Ann for preoperative consultation prior to undergoing surgery for 01/17/24. The consulting physician has been asked to review Shanice Ponce's medical issues and to provide an opinion concerning the patients medical risks associat ed with surgery as well as any necessary preoperative and perioperative interventions. * Telephone Encounter - Karrie Pérez C.M.A. - 10/26/2023 2:46 PM EDT Left pt message to return call. * Telephone Encounter - Karrie Pérez C.M.ALeticia - 10/16/2023 1:40 PM EDT I called and spoke with the pt. Offer DOS 01/17/24, pt accepted. Will forward to [facility]. DA * Telephone Encounter - Karrie Pérez C.M.A. - 10/16/2023 11:12 AM EDT Left pt message to return call to offer DOS. * Telephone Encounter - Karrie Pérez C.M.A. - 10/16/2023 9:29 AM EDT Carisa Chaney MD 7 minutes ago (9:21 AM) [employer] 10/16/2023 ? Patient's Name: Shanice Ponce : 1980 Payor information: Payor: [facility] / Plan: [employer] / Product Type: HMO [id number] ?? Allergies: Allergies Allergen Reactions ??? Copaxone [Glatiramer-Mannitol] Hives/Urticaria ?? LMP: No LMP recorded. (Menstrual status: IUD-uncertain date). Diagnosis: 1. Abnormal uterine bleeding (AUB) 2. Pelvic pain ?? Surgery Procedure Planned: Robotic hyst, BS, cysto Special Instructions/Equipment needed: Mirna Type of Anesthesia: GETA Stay: Daystay Location:[facility] Poultry Hatchery Manager Needed? YES Time Needed: 2 hr Essential: YES Urgency: elective Medicaid Sterilization (within 30 days - 180 days) and/or Medicare HI-1 form signed, if needed? N\ADate signed? NA already ahd TL Medical Clearance? YES Pre Op SHEAR SCRAPMAN visit: YES Pap Needed at Pre Op Visit? NO No orders of the defined types were placed in this encounter. ?? CARISA CHANEY MD ?? documented in this encounter Plan of Treatment Scheduled Orders Name Type Priority Associated Diagnoses Orde r Schedule SD ECG ROUTINE ECG W/LEAST 12 LDS W/I&R Cardiology Routine Preoperative examination 1 Occurrences starting 10/26/2023 until 10/25/2024 documented as of this encounter Results * (ABNORMAL) CHG BLOOD COUNT COMPLETE AUTO&AUTO DIFRNTL WBC (12/21/2023 2:53 PM EDT) [facility] WHITE BLOOD COUNT 10.3 4.8 - 10.8 x10-3/uL 12/21/2023 6:21 PM EDT [email or web address] RED BLOOD COUNT 4.4 3.8 - 4.8 x10-6/uL 12/21/2023 6:21 PM EDT [facility] Hemoglobin 12.7 11.5 - 16.0 g/dL 12/21/2023 6:21 PM EDT [facility] Hematocrit 39.5 35 - 47 % 12/21/2023 6:21 PM EDT [email or web address] MEAN CORPUSCULAR VOLUME 90.0 79 - 98 fL 12/21/2023 6:21 PM EDT [facility] MEAN CORPUSCULAR HEMOGLOBIN 28.9 27 - 32 pg 12/21/2023 6:21 PM EDT [email or web address] MEAN CORPUSCULAR HGB CONC 32.2 32 - 37 g/dL 12/21/2023 6:21 PM EDT [facility] RED CELL DISTRIBUTION WIDTH 13.2 11 - 15 % 12/21/2023 6:21 PM EDT [facility] PLT COUNT 283 130 - 400 x10-3/uL 12/21/2023 6:21 PM EDT [email or web address] MEAN PLATELET VOLUME 10.2 7 - 11 fL 12/21/2023 6:21 PM EDT [facility] NRBC % AUTO 0.0 <1 % 12/21/2023 6:21 PM EDT [facility] NEUTROPHILS % 67.8 % 12/21/2023 6:21 PM EDT [facility] LYMPH % 22.0 % 12/21/2023 6:21 PM EDT [facility] MONO % 6.5 % 12/21/2023 6:21 PM EDT [facility] EOS % 2.7 % 12/21/2023 6:21 PM EDT [facility] BASO % 0.5 % 12/21/2023 6:21 PM EDT [facility] IMMATURE GRANULOCYTES % 0.5 % 12/21/2023 6:21 PM EDT [facility] NRBC # AUTO 0.00 <0.1 x10-3/uL 12/21/2023 6:21 PM EDT [facility] NEUT # 6.96 1.5 - 7.0 x10-3/uL 12/21/2023 6:21 PM EDT [facility] LYMPH # 2.26 1 - 5.0 x10-3/uL 12/21/2023 6:21 PM EDT [facility] MONO # 0.67 0.2 - 1.0 x10-3/uL 12/21/2023 6:21 PM EDT [facility] EOS # 0.28 0 - 0.5 x10-3/uL 12/21/2023 6:21 PM EDT [facility] BASO # 0.05 0 - 0.2 x10-3/uL 12/21/2023 6:21 PM EDT [facility] IMMATURE GRANULOCYTES # 0.05(H) 0 - 0.03 x10-3/uL 12/21/2023 6:21 PM EDT [facility] 12/21/2023 2:53 PM EDT 12/21/2023 2:54 PM EDT Narrative [facility] - 12/21/2023 6:21 PM EDT Release to patient->Immediate Carisa Chaney MD LAB [facility] * (ABNORMAL) CHG BASIC METABOLIC PANEL CALCIUM TOTAL (12/21/2023 2:53 PM EDT) [facility] GLUCOSE 125(H) 70 - 100 mg/dL 12/21/2023 7:05 PM EDT [facility] Comment:Reference range appl icable to fasting specimens only Blood Urea Nitrogen 17 5 - 25 mg/dL 12/21/2023 7:05 PM EDT [facility] CREAT 0.72 0.5 - 1.1 mg/dL 12/21/2023 7:05 PM EDT [facility] GLOMERULAR FILTRATION RATE 108 >60 12/21/2023 7:05 PM EDT [facility] Comment: This eGFR result was calculated using the CKD-EPI 2020 Creatinine Equation NA 140 135 - 145 mEq/L 12/21/2023 7:05 PM EDT [facility] K 3.9 3.5 - 5.5 mmol/L 12/21/2023 7:05 PM EDT [facility] CL 106 96 - 110 mmol/L 12/21/2023 7:05 PM EDT [facility] CARBON DIOXIDE (CO2) 31 21 - 32 mmol/L 12/21/2023 7:05 PM EDT [facility] ANION GAP 3 3 - 11 12/21/2023 7:05 PM EDT [facility] CALCIUM 9.6 8.5 - 10.5 mg/dL 12/21/2023 7:05 PM EDT [facility] 12/21/2023 2:53 PM EDT 12/21/2023 2:54 PM EDT Narrative [facility] - 12/21/2023 7:05 PM EDT Release to patient->Immediate Carisa Chaney MD LAB [facility] documented in this encounter Visit Diagnoses Diagnosis Preoperative examination- Primary Preoperative examination, unspecified Morbid obesity with BMI of 45.0-49.9, adult (HCC) Preoperative examination Preoperative examination, unspecified Type 2 diabetes mellitus with diabetic nephropathy, without long-term current use of insulin (HCC) documented in this encounter Care Teams Dairy Products Maker Relationship Specialty Start Date End Date Maida Ann MD [address] [place] [address] PCP - General Internal Medicine 03/09/22 documented as of this encounter
--- OUTSIDE RECORDS SUMMARY | 2024-08-28 14:12 | XMS_ITS | Encounter Summary ---
Author Organization [facility] Address [address] [place] [address] Care Team Providers Care Plan Manager Name Role Phone Stephany Elise MD Primary Care Provider James Bear Primary Care Provider Stephany De La Torre MD Primary Care Provider Kamlesh Sanchez MD Primary Care Provider Jorden Padgett Primary Care Provider [phone] Maida Ann MD Primary Care Provider + Encounter Details Date Type Department Care Team Description 03/31/2016 [facility] Medical Records [address] [place] [address] Nona Armstrong Social History Tobacco Use Types [...] documented as of this encounter Care Teams Plan Manager Relationship Specialty Start Date End Date Stephany Elise MD PCP - General 03/31/11 04/17/18 James Gomez PCP - General Internal Medicine 04/18/18 09/10/18 Stephany Elise MD PCP - General Internal Medicine 09/11/18 03/11/21 Kamlesh Patel MD PCP - General Internal Medicine 03/12/21 03/07/22 Jorden Kramer [address] [place] [address] PCP - General Internal Medicine 03/08/22 03/08/22 Maida Ann MD [address] [place] [address] PCP - General Internal Medicine 03/09/22 documented as of this encounter
--- OUTSIDE RECORDS SUMMARY | 2024-08-28 14:12 | XMS_ITS | Encounter Summary ---
Author Organization [facility] Address [address] [place] [address] Care Team Providers Care Funeral Home Makeup Artist Name Role Phone Maida Ann MD Primary Care Provider + Reason for Visit * Reason Comments E-prescribe Rx Request Encounter Details Date Type Department Care Team Description 04/02/2024 Refill Adult Medicine [facility] [address] [place] [address] Maida Ann MD [address] [place] [address] [phone] E-prescribe Rx Request Social History Tobacco Use [...] encounter Miscellaneous Notes * Telephone Encounter - Sunitha Lazcano - 04/12/2024 11:30 AM EDT Faxed to pharmacy * Telephone Encounter - Alysia Catherine M.A. - 04/11/2024 2:29 PM EDT Lab Results Component Value Date NA 140 12/21/2023 K 3.9 12/21/2023 CO2 31 12/21/2023 CL 106 12/21/2023 BUN 17 12/21/2023 CREAT 0.72 12/21/2023 GLU 125 12/21/2023 CA 9.6 12/21/2023 GFR 108 12/21/2023 Pending appt 04/18/24 Last appt 01/03/24 * Telephone Encounter - Paige Camargo - 04/09/2024 1:47 PM EDT Patient would like script to be: E-PRESCRIBED/FAXED TO PHARMACY WHEN WAS THE PATIENT'S LAST APPOINTMENT IN ADULT MEDICINE? 01/03/2024 WHEN WAS THE LAST TIME THE PATIENT SAW THEIR PCP? Same as above Does patient have an upcoming appointment? Yes 04/18/2024 (THE MEDICATION REQUESTED IS ON THE MED [...] N/A Patients current insurance carrier is: Payor: [employer] [facility] [employer] / Plan: [employer] $0 [facility] / Product Type: HMO [id number] documented in this encounter Plan of Treatment Not on file documented as of this encounter Visit Diagnoses Diagnosis Leg swelling Swelling of limb documented in this encounter Care Teams Funeral Home Makeup Artist Relationship Specialty Start Date End Date Maida Ann MD [address] [place] [address] PCP - General Internal Medicine 03/09/22 documented as of this encounter
--- OUTSIDE RECORDS SUMMARY | 2024-08-28 14:12 | XMS_ITS | Encounter Summary ---
Author Organization [facility] Address [address] [place] [address] Care Team Providers Care Business Advisor Name Role Phone Maida Ann MD Primary Care Provider + Encounter Details Date Type Department Care Team Description 07/01/2022 Refill OBGYN - [facility] [address] [place] [address] Jesus Jones, Social History Tobacco Use Types Packs/Day Years [...] suspected to have Coronavirus/COVID-19? No / Unsure 06/10/2022 9:54 AM EST documented as of this encounter Miscellaneous Notes * Telephone Encounter - Analy Delgado L.P.N. - 07/04/2022 9:09 AM EST Clobetasol refill refused as pt not seen since 07/07/20 Letter mailed to schedule Annual documented in this encounter Plan of Treatment Not on file documented as of this encounter Visit Diagnoses Diagnosis Vulvar dermatitis Other inflammatory disease of cervix, vagina and vulva documented in this encounter Additional Health Concerns Infection Onset Date Last Indicated Resolved Time COVID-19 Comment:Sx's started 05/23/22 tested + 05/25/22 05/25/2022 06/08/2022 10/09/2023 9:12 AM E DT documented as of this encounter Care Teams Business Advisor Relationship Specialty Start Date End Date Maida Ann MD [address] [place] [address] PCP - General Internal Medicine 03/09/22 documented as of this encounter
--- OUTSIDE RECORDS SUMMARY | 2024-08-28 14:12 | XMS_ITS | Encounter Summary ---
Author Organization [facility] Address [address] [place] [address] Care Team Providers Care Hollow Ware Maker Name Role Phone Stephany Elise MD Primary Care Provider Kamlesh Sanchez MD Primary Care Provider Jorden Padgett Primary Care Provider [phone] Maida Ann MD Primary Care Provider + Encounter Details Date Type Department Care Team Description 01/18/2019 Packaging Supervisor Report Medical Records [address] [place] [address] Nona Armstrong Social History Tobacco Use Types [...] documented as of this encounter Care Teams Hollow Ware Maker Relationship Specialty Start Date End Date Stephany Elise MD PCP - General Internal Medicine 09/11/18 03/11/21 Kamlesh Patel MD PCP - General Internal Medicine 03/12/21 03/07/22 Jorden Kramer [address] [place] [address] PCP - General Internal Medicine 03/08/22 03/08/22 Maida Ann MD [address] [place] [address] PCP - General Internal Medicine 03/09/22 documented as of this encounter
--- OUTSIDE RECORDS SUMMARY | 2024-08-28 14:12 | XMS_ITS | Encounter Summary ---
Author Organization [facility] Address [address] [place] [address] Care Team Providers Care Middle Stitcher Name Role Phone Maida Ann MD Primary Care Provider + Encounter Details Date Type Department Care Team Description 03/24/2023 [facility] Report Medical Records [address] [place] [address] [facility] Social History Tobacco Use Types Packs/Day Years [...] documented as of this encounter Care Teams Middle Stitcher Relationship Specialty Start Date End Date Maida Ann MD [address] [place] [address] PCP - General Internal Medicine 03/09/22 documented as of this encounter
--- OUTSIDE RECORDS SUMMARY | 2024-08-28 14:12 | XMS_ITS | Encounter Summary ---
Author Organization [facility] Address [address] [place] [address] Care Team Providers Care Porcelain Finisher Name Role Phone Stpehany Elise MD Primary Care Provider James Bear Primary Care Provider Stephany De La Torre MD Primary Care Provider Kamlesh Sanchez MD Primary Care Provider Jorden Padgett Primary Care Provider [phone] Maida Ann MD Primary Care Provider + Reason for Visit * Reason Onset Date Comments Testing 10/06/2011 SLEEP STUDY Encounter Details Date Type Department Care Team Description 10/06/2011 Telephone Adult [address] [address] Stephany Elise MD Testing (SLEEP STUDY) Social History Tobacco Use Types Packs/Day Years [...] encounter Miscellaneous Notes * Telephone Encounter - Kenisha Urrutia L.P.N. - 10/06/2011 2:27 PM EST [facility] [place] [facility] AUTH OBTAINED FOR SLEEP STUDY REF # [id number], 06/02/2011-11/11/2011 FORWARDED INFO TO SLEEP LAB documented in this encounter Plan of Treatment Not on file documented as of this encounter Visit Diagnoses Not on filedocumented in this encounter Additional Health Concerns Infection Onset Date Last Indicated Resolved Time COVID-19 Comment:Sx's started 05/23/22 tested + 05/25/22 05/25/2022 06/08/2022 10/09/2023 9:12 AM E DT documented as of this encounter Care Teams Porcelain Finisher Relationship Specialty Start Date End Date Stephany Elise MD PCP - General 03/31/11 04/17/18 James Gomez PCP - General Internal Medicine 04/18/18 09/10/18 Stephany Elise MD PCP - General Internal Medicine 09/11/18 03/11/21 Kamlesh Patel MD PCP - General Internal Medicine 03/12/21 03/07/22 Jorden Kramer [address] [place] [address] PCP - General Internal Medicine 03/08/22 03/08/22 Maida Ann MD [address] [place] [address] PCP - General Internal Medicine 03/09/22 documented as of this encounter
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
--- OUTSIDE RECORDS SUMMARY | 2024-08-28 14:12 | XMS_ITS | Encounter Summary ---
Author Organization [facility] Address [address] [place] [address] Care Team Providers Care International Account Executive Name Role Phone Stephany Elise MD Primary Care Provider Brittney Burroughs MD Primary Care Provider Unavailable James Gomez Primary Care Provider Stephany De La Torre MD Primary Care Provider Kamlesh Sanchez MD Primary Care Provider Jorden Padgett Primary Care Provider [phone] Maida Ann MD Primary Care Provider + Encounter Details Date Type Department Care Team Description 06/27/2007 Hospital Medical Records [address] [place] [address] Shadi Serrano MD Social History Tobacco Use Types Packs/Day [...] documented as of this encounter Care Teams International Account Executive Relationship Specialty Start Date End Date Stephany Elise MD PCP - General 03/31/11 04/17/18 PacoBrittney Aguilera MD PCP - General 03/23/0703/30 James Gomez PCP - General Internal Medicine 04/18/18 09/10/18 Stephany Elise MD PCP - General Internal Medicine 09/11/18 03/11/21 Kamlesh Patel MD PCP - General Internal Medicine 03/12/21 03/07/22 Jorden Kramer [address] [place] [address] PCP - General Internal Medicine 03/08/22 03/08/22 Maida Ann MD [address] [place] [address] PCP - General Internal Medicine 03/09/22 documented as of this encounter
--- OUTSIDE RECORDS SUMMARY | 2024-08-28 14:12 | XMS_ITS | Encounter Summary ---
Author Organization [facility] Address [address] [place] [address] Care Team Providers Care Business Process Manager Name Role Phone Maida Ann MD Primary Care Provider + Encounter Details Date Type Department Care Team Description 04/01/2024 Pt. Non Urgent Medical Question OBGYN - [place] [address] [place] [address] Carisa Napier MD [address] [place] [address] Surgical menopause (Primary Dx) Social History Tobacco Use Types [...] Telephone Encounter - Phyllis Jiménez R.N. - 04/02/2024 11:11 AM EDTFrom: Shanice Ponce To: Tom Napier Sent: 04/01/2024 7:47 PM EDT Subject: Estrogen cream I need a script sent to [facility] pharmacy for the estrogen cream. I have one from my urologist but you had me use it everyday for two weeks which makes me pretty much out so I would need a new script because it???s refill too soon documented in this encounter Plan of Treatment Not on file documented as of this encounter Visit Diagnoses Diagnosis Surgical menopause- Primary Symptomatic states associated with artificial menopause documented in this encounter Care Teams Business Process Manager Relationship Specialty Start Date End Date Maida Ann MD [address] [place] [address] PCP - General Internal Medicine 03/09/22 documented as of this encounter
--- OUTSIDE RECORDS SUMMARY | 2024-08-28 14:12 | XMS_ITS | Encounter Summary ---
Author Organization [facility] Address [address] [place] [address] Care Team Providers Care Clinical Cytopathologist Name Role Phone Maida Ann MD Primary Care Provider + Encounter Details Date Type Department Care Team Description 04/10/2024 Utility Worker Roller Shop Report Medical Records [address] [place] [address] Uzma Sigala PA-C Social History Tobacco Use Types Packs/Day [...] on filedocumented in this encounter Care Teams Clinical Cytopathologist Relationship Specialty Start Date End Date Maida Ann MD [address] [place] [address] PCP - General Internal Medicine 03/09/22 documented as of this encounter
--- OUTSIDE RECORDS SUMMARY | 2024-08-28 14:12 | XMS_ITS | Encounter Summary ---
Author Organization [facility] Address [address] [place] [address] Care Team Providers Care Cell Reliner Name Role Phone Kamlesh Patel MD Primary Care Provider Jorden Padgett Primary Care Provider [phone] Maida Ann MD Primary Care Provider + Encounter Details Date Type Department Care Team Description 01/21/2022 Refill OBGYN - [place] [address] [place] [address] Jesus Jones, Social History Tobacco Use Types [...] documented as of this encounter Care Teams Cell Reliner Relationship Specialty Start Date End Date Kamlesh Patel MD PCP - General Internal Medicine 03/12/21 03/07/22 Jorden Kramer [address] [place] [address] PCP - General Internal Medicine 03/08/22 03/08/22 Maida Ann MD [address] [place] [address] PCP - General Internal Medicine 03/09/22 documented as of this encounter
--- OUTSIDE RECORDS SUMMARY | 2024-08-28 14:12 | XMS_ITS | Encounter Summary ---
Author Organization [facility] Address [address] [place] [address] Care Team Providers Care Litigation Examiner Name Role Phone Maida Ann MD Primary Care Provider + Encounter Details Date Type Department Care Team Description 12/02/2022 Release of Information Medical Records [address] [place] [id number] Abstract, Provider Social History Tobacco Use Types [...] documented as of this encounter Care Teams Litigation Examiner Relationship Specialty Start Date End Date Maida Ann MD [address] [place] [address] PCP - General Internal Medicine 03/09/22 documented as of this encounter
--- OUTSIDE RECORDS SUMMARY | 2024-08-28 14:12 | XMS_ITS | Encounter Summary ---
Author Organization [facility] Address [address] [place] [address] Care Team Providers Care Military Personnel Specialist Name Role Phone Maida Ann MD Primary Care Provider + Encounter Details Date Type Department Care Team Description 08/24/2023 Field Attendant Report Medical Records [address] [place] [address] Humble Rosario MD Social History Tobacco Use [...] documented as of this encounter Care Teams Military Personnel Specialist Relationship Specialty Start Date End Date Maida Ann MD [address] [place] [address] PCP - General Internal Medicine 03/09/22 documented as of this encounter
--- OUTSIDE RECORDS SUMMARY | 2024-08-28 14:12 | XMS_ITS | Encounter Summary ---
Author Organization [facility] Address [address] [facility] [place] [address] Care Team Providers Care Otr [employer] Driver Name Role Phone Stephany Elise MD Primary Care Provider James Bear Primary Care Provider Stephany De La Torre MD Primary Care Provider Kamlesh Sanchez MD Primary Care Provider Jorden Padgett Primary Care Provider Maida Ann MD Primary Care Provider + Reason for Visit * Reason Comments E-prescribe Rx Request Encounter Details Date Type Department Care Team Description 12/05/2016 Refill Adult Medicine [address] [address] Enrique Sue PA-C [address] [place] [address] E-prescribe Rx Request Social History Tobacco Use [...] encounter Miscellaneous Notes * Telephone Encounter - Ruth Cordobayousuf - 12/05/2016 11:57 AM EDT Patient would like script to be: E-PRESCRIBED/FAXED TO PHARMACY WHEN WAS THE PATIENT'S LAST APPOINTMENT IN ADULT MEDICINE? 10/25/16 WHEN WAS THE LAST TIME THE PATIENT SAW THEIR PCP? 07/11/16 Does patient have an upcoming appointment? Yes 12/12/16 (THE MEDICATION REQUESTED IS ON THE MED LIST ABOVE) All of the medications requested were on the CURRENT MEDS list Did you check the Pharmacy information above?: YES Patient wants: 30 -day supply Is this a mail order prescription request ? NO Patients current insurance carrier is: Payor: [facility] MEDICAID / Plan: [employer] MEDICAID HMO $0 SIMS / Product Type: HMO [id number] documented in this encounter Plan of Treatment Not on file documented as of this encounter Visit Diagnoses Not on filedocumented in this encounter Additional Health Concerns Infection Onset Date Last Indicated Resolved Time COVID-19 Comment:Sx's started 05/23/22 tested + 05/25/22 05/25/2022 06/08/2022 10/09/2023 9:12 AM E DT documented as of this encounter Care Teams Otr [employer] Driver Relationship Specialty Start Date End Date Stephany Elise MD PCP - General 03/31/11 04/17/18 James Gomez PCP - General Internal Medicine 04/18/18 09/10/18 Stephany Elise MD PCP - General Internal Medicine 09/11/18 03/11/21 Kamlesh Patel MD PCP - General Internal Medicine 03/12/21 03/07/22 Jorden Kramer [address] [place] [address] PCP - General Internal Medicine 03/08/22 03/08/22 Maida Ann MD [address] [place] [address] PCP - General Internal Medicine 03/09/22 documented as of this encounter
--- OUTSIDE RECORDS SUMMARY | 2024-08-28 14:12 | XMS_ITS | Encounter Summary ---
Author Organization [facility] Address [address] [place] [address] Care Team Providers Care Tacker Off Name Role Phone Maida Ann MD Primary Care Provider + Reason for Visit * Reason Comments E-prescribe Rx Request Encounter Details Date Type Department Care Team Description 10/07/2023 Refill OBGYN - [place] [address] [place] [address] Carisa Napier MD [address] [place] [address] E-prescribe Rx Request Social History Tobacco Use [...] encounter Miscellaneous Notes * Telephone Encounter - Catrina Dumont - 10/09/2023 10:50 AM EDT WHEN WAS THE PATIENTS LAST ANNUAL SALAD BAR CLERK EXAM? 06/01/23 Does patient have an upcoming appointment? No (THE MEDICATION REQUESTED IS ON THE MED LIST ABOVE) Did you check the Pharmacy information above?: YES Indicate how soon the patient needs the script: BY THE END OF THE DAY Patient would like script to be: E-PRESCRIBED/FAXED TO PHARMACY Is the doctor here today?: YES Can the message wait until the doctor returns?: NO Has the patient been told that the prescription will not be filled until the end of the day? NO Payor: [employer] / Plan: O $0 FALLENTIMBER [employer] / Product Type: HMO [id number] documented in this encounter Plan of Treatment Not on file documented as of this encounter Visit Diagnoses Diagnosis Vulvar dermatitis Other inflammatory disease of cervix, vagina and vulva documented in this encounter Additional Health Concerns Infection Onset Date Last Indicated Resolved Time COVID-19 Comment:Sx's started 05/23/22 tested + 05/25/22 05/25/2022 06/08/2022 10/09/2023 9:12 AM E DT documented as of this encounter Care Teams Tacker Off Relationship Specialty Start Date End Date Maida Ann MD [address] [place] [address] PCP - General Internal Medicine 03/09/22 documented as of this encounter
--- OUTSIDE RECORDS SUMMARY | 2024-08-28 14:12 | XMS_ITS | Encounter Summary ---
Author Organization [facility] Address [address] [place] [address] Care Team Providers Care Gaming Manager Name Role Phone Stephany Elise MD Primary Care Provider James Bear Primary Care Provider Stephany De La Torre MD Primary Care Provider Kamlesh Sanchez MD Primary Care Provider Jorden Padgett Primary Care Provider [phone] Maida Ann MD Primary Care Provider + Encounter Details Date Type Department Care Team Description 05/19/2016 [facility] Medical Records [address] [place] [address] Social History Tobacco Use Types Packs/Day Years [...] documented as of this encounter Care Teams Gaming Manager Relationship Specialty Start Date End Date Stephany Elise MD PCP - General 03/31/11 04/17/18 James Gomez PCP - General Internal Medicine 04/18/18 09/10/18 Stephany Elise MD PCP - General Internal Medicine 09/11/18 03/11/21 Kamlesh Patel MD PCP - General Internal Medicine 03/12/21 03/07/22 Jorden Kramer [address] [place] [address] PCP - General Internal Medicine 03/08/22 03/08/22 Maida Ann MD [address] [place] [address] PCP - General Internal Medicine 03/09/22 documented as of this encounter
--- OUTSIDE RECORDS SUMMARY | 2024-08-28 14:12 | XMS_ITS | Encounter Summary ---
Author Organization [facility] Address [address] [place] [address] Care Team Providers Care Risk Developer Name Role Phone Stephany Elise MD Primary Care Provider James Bear Primary Care Provider Stephany De La Torre MD Primary Care Provider Kamlesh Sanchez MD Primary Care Provider Jorden Padgett Primary Care Provider [phone] Maida Ann MD Primary Care Provider + Encounter Details Date Type Department Care Team Description 11/10/2016 Pt. Non Urgent Medic al Question Adult [address] [address] Stephany Elise MD Social History Tobacco Use [...] as of this encounter Progress Notes * Isabel Deras M.A. - 11/10/2016 4:44 PM EDTFrom: Shanice Ponce To: Stephany Elise MD Sent: 11/10/2016 4:38 PM EDT Subject: Weight loss You know we have spoke about my weight loss and you know I have struggled for while with losing weight I would like to try a weight loss pill . Could we possibly discuss a pill to help [place] my weight loss journey documented in this encounter Plan of Treatment Not on file documented as of this encounter Visit Diagnoses Not on filedocumented in this encounter Additional Health Concerns Infection Onset Date Last Indicated Resolved Time COVID-19 Comment:Sx's started 05/23/22 tested + 05/25/22 05/25/2022 06/08/2022 10/09/2023 9:12 AM E DT documented as of this encounter Care Teams Risk Developer Relationship Specialty Start Date End Date Stephany Elise MD PCP - General 03/31/11 04/17/18 James Gomez PCP - General Internal Medicine 04/18/18 09/10/18 Stephany Elise MD PCP - General Internal Medicine 09/11/18 03/11/21 Kamlesh Patel MD PCP - General Internal Medicine 03/12/21 03/07/22 Jorden Kramer [address] [place] [address] PCP - General Internal Medicine 03/08/22 03/08/22 Maida Ann MD [address] [place] [address] PCP - General Internal Medicine 03/09/22 documented as of this encounter
--- OUTSIDE RECORDS SUMMARY | 2024-08-28 14:13 | XMS_ITS | Encounter Summary ---
Author Organization [facility] Address [address] [facility] [place] [address] Care Team Providers Care Order Expediter Name Role Phone Stephany Elise MD Primary Care Provider Kamlesh Sanchez MD Primary Care Provider Jorden Padgett Primary Care Provider [phone] Maida Ann MD Primary Care Provider + Encounter Details Date Type Department Care Team Description 03/02/2020 Release of Information Medical Records [address] [place] [id number] Abstract, Provider Social History Tobacco Use Types [...] on file documented as of this encounter Nursing Notes * Jess Ramirez - 03/02/2020 1:56 PM EDT AUTHORIZATION TO OBTAIN RECORDS FAXED TO [facility]. documented in this encounter Plan of Treatment Not on file documented as of this encounter Visit Diagnoses Not on filedocumented in this encounter Additional Health Concerns Infection Onset Date Last Indicated Resolved Time COVID-19 Comment:Sx's started 05/23/22 tested + 05/25/22 05/25/2022 06/08/2022 10/09/2023 9:12 AM E DT documented as of this encounter Care Teams Order Expediter Relationship Specialty Start Date End Date Stephany Elise MD PCP - General Internal Medicine 09/11/18 03/11/21 Kamlesh Patel MD PCP - General Internal Medicine 03/12/21 03/07/22 Jorden Kramer [address] [place] [address] PCP - General Internal Medicine 03/08/22 03/08/22 Maida Ann MD [address] [place] [address] PCP - General Internal Medicine 03/09/22 documented as of this encounter
--- OUTSIDE RECORDS SUMMARY | 2024-08-28 14:13 | XMS_ITS | Encounter Summary ---
Author Organization [facility] Address [address] [place] [address] Care Team Providers Care School Occupational Therapist Name Role Phone Stephany Elise MD Primary Care Provider James Bear Primary Care Provider Stephany De La Torre MD Primary Care Provider Kamlesh Sanchez MD Primary Care Provider Jorden Padgett Primary Care Provider [phone] Maida Ann MD Primary Care Provider + Encounter Details Date Type Department Care Team Description 09/19/2016 Nuclear Plant Equipment Operator Report Medical Records [address] [place] [address] Isabel Steele NP Social History Tobacco Use Types Packs/Day [...] documented as of this encounter Care Teams School Occupational Therapist Relationship Specialty Start Date End Date Stephany Elise MD PCP - General 03/31/11 04/17/18 James Gomez PCP - General Internal Medicine 04/18/18 09/10/18 Stephany Elise MD PCP - General Internal Medicine 09/11/18 03/11/21 Kamlesh Patel MD PCP - General Internal Medicine 03/12/21 03/07/22 Jorden Kramer [address] [place] [address] PCP - General Internal Medicine 03/08/22 03/08/22 Maida Ann MD [address] [place] [address] PCP - General Internal Medicine 03/09/22 documented as of this encounter
== END 2024-08-28 13:35 | disposition home or self-care (01) ==
PROVIDERS: Visit Provider Physician Assistant
DX: R05.1 Acute cough (principal)

== ENCOUNTER 2024-08-28 11:43 | Outpatient (REF) | payer OTHER, MEDICAID, SELFPAY ==
[2024-08-28 19:21] LABS: Influenza A PCR POSITIVE (Negative); Influenza B PCR NEGATIVE (Negative); Resp Syncy Virus RNA Qual PCR NEGATIVE (Negative); SARS COV2 PCR INHOUSE NEGATIVE (Negative)
== END 2024-08-28 11:44 | disposition home or self-care (01) ==
LOC: HO.LNP 11:43
PROVIDERS: Visit Provider Physician Assistant
DX: R05.1 Acute cough (principal)
CPT/HCPCS: 0241U

== ENCOUNTER 2024-08-28 13:03 | Outpatient (REF) | payer OTHER, MEDICAID, SELFPAY ==
--- NOTE | ~2024-08-28 | XR_ITS ---
EXAMINATION: XR CHEST CLINICAL INFORMATION: R05.9 - Cough, unspecified COMPARISON: None available. TECHNIQUE: 2 views of the chest were obtained. FINDINGS: No significant abnormality is noted involving the heart, lungs, mediastinum, bony thorax or soft tissues. XR/XR chest 2V IMPRESSION: Unremarkable chest examination. Electronically signed by: Roger Cruz MD 08/28/2024 01:27 PM [facility]
--- OUTSIDE RECORDS SUMMARY | 2024-08-28 15:11 | XMS_ITS | Encounter Summary ---
Author Organization [facility] Address [address] [place] [address] Care Team Providers Care Jewel Waxer Name Role Phone Maida Ann MD Primary Care Pr ovider Encounter Details Date Type Department Care Team (Late st Contact Info) Description 08/19/2024 Nurse Triage Adult Medicine [address] [phone] Ashley Hernandez, RN Social History Tobacco Use [...] Description 11/05/2024 2:00 PM EDT [facility] [address] [place] [phone] Sandra Monk MD [address] [facility] [address] [place] [address] 12/19/2024 10:30 AM EDT Office Visit Pulmonolgy - [place] [address] [place] [phone] Milady Hogan NP [address] [place] [address] documented as of this encounter Visit Diagnoses Not on filedocumented in this encounter Care Teams Jewel Waxer Relationship Specialty Start Date End Date Maida Ann MD [address] [place] [address] PCP - General Internal Medicine 03/09/22 documented as of this encounter
--- OUTSIDE RECORDS SUMMARY | 2024-08-28 15:11 | XMS_ITS | Encounter Summary ---
Author Organization [facility] Address [address] [place] [address] Care Team Providers Care Station Supervisor Name Role Phone Maida Ann MD Primary Care Pr ovider Reason for Referral * Consultation (Routine) - Authorized Specialty Diagnoses / Procedures Referred By Contac t Referred To Contact Nephrology Diagnoses Type 2 diabetes mellitus with microalbuminuria ([facility]/HCC) Maida Ann MD [address] [place] [address] [facility] Nephrology [address] Referral ID Status Reason Start Date Expiration Date Visits Requested Visits Authorized [id number] Authorized Specialty Services Required 08/27/2024 08/27/2025 1 1 Encounter Details Date Type Department Care Team (Late st Contact Info) Description 08/27/2024 Telephone Adult Medicine [address] [phone] Maida Ann MD [address] [place] [address] Social History Tobacco Use Types Packs/Day Years [...] Description 11/05/2024 2:00 PM EDT Consult Urogynecology [address] [phone] Sandra Monk MD [address] [facility] [address] [place] [address] 12/19/2024 10:30 AM EDT Office Visit Pulmonolgy - [place] [address] [facility] [address] [place] [phone] Milady Hogan NP [address] [facility] [address] [place] [address] Scheduled Referrals Name Type Priority Associated Diagnoses Orde r Schedule Ambulatory referral to Nephrology Outpatient Referral Routine 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) 1 Occurrences starting 08/27/2024 until 08/27/2025 documented as of this encounter Visit Diagnoses Diagnosis 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)- Primary documented in this encounter Care Teams Station Supervisor Relationship Specialty Start Date End Date Maida Ann MD [address] [place] Stefanie [place]utcher, [place] PCP - General Internal Medicine 03/09/22 documented as of this encounter
--- OUTSIDE RECORDS SUMMARY | 2024-08-28 15:11 | XMS_ITS | Encounter Summary ---
Author Organization [facility] Address [address] [place] [address] Care Team Providers Care Dish Room Worker Name Role Phone Maida Ann MD Primary Care Pr ovider Encounter Details Date Type Department Care Team (Late Contact Info) Description 08/19/2024 Telephone Adult Medicine [address] [phone] Ashley Hernandez, ADALBERTO Social History Tobacco Use [...] Description 11/05/2024 2:00 PM EDT Consult Urogynecology [address] [phone] Sandra Monk MD [address] [place] [address] [address] [place] [address] 12/19/2024 10:30 AM EDT Office Visit Pulmonolgy - [place] [address] [facility] [address] [place] [address] Milady oHgan NP 175 [facility] [address] [place] [address] documented as of this encounter Visit Diagnoses Not on filedocumented in this encounter Care Teams Dish Room Worker Relationship Specialty Start Date End Date Maida Ann MD [address] [facility], [place] PCP - General Internal Medicine 03/09/22 documented as of this encounter
--- OUTSIDE RECORDS SUMMARY | 2024-08-28 15:11 | XMS_ITS | Clinical Summary ---
Author Organization [facility] [address] [place] [address] Address [address] [place] [address] Phone Care Team Providers Care Aeronautical Drafter Name Role Phone Maida Ann MD Primary [...] complication, without long-term current use of insulin ([facility]) Inject 0.5 mL (2.5 mg total) under [...] Continue vaginal estradiol, aygestin daily prescribed through HIM ANALYST Restless leg syndrome 01/03/2024 Assessment & Plan (07/17/2024 8:44 PM EST): Continue Pramipexole nightly Achilles tendon tear, left, initial encounter Assessment & Plan (07/17/2024 8:44 PM EST): She has a hx of left ankle surgery done around November with Dr. Rosario at [facility]. Unfortunately I do not have any records for review. Offered XRAY but she will prefer to follow up with [facility] and will call to schedule an [...] (obstructive sleep apnea) 06/02/2015 Overview (05/10/2024): Dx [facility] - followup there Assessment & Plan (07/17/2024 8:44 PM EST): Continue CPAP nightly Excessive sweating 02/23/2015 Multiple sclerosis, relapsing-remitting 02/24/20 15 Overview (05/10/2024): Abnormalities on MRI 2013 (progression from previous). LP done in 06/2014 at [facility] - positive for MS. Sees Dr. Nona Armstrong at [facility] Neuro. Did not tolerate Copaxone and Rebif. On Tecfidera Assessment & Plan (07/17/2024 8:44 PM EST): Continue follow up with [facility] neurology. Continue Ocrevus every 6 months [...] Care Team Description 08/27/2024 Telephone Adult Medicine [address] [phone] Maida Ann MD 08/20/2024 1:45 PM EST Office Visit Endocrinology - [address] [phone] Yamil Toledo MD Type 2 diabetes mellitus without complication, without long-term current use of insulin ([facility]) (Primary Dx) 08/20/2024 Telephone Pulmonolgy - [place] [address] [facility] [address] [place] [phone] Nurys Arnold [place] prior authorization (albuterol) 08/19/2024 Nurse Triage Adult [address] [phone] Ashley Hernandez, RN 08/19/[address] [phone] Ashley Hernandez, RN 08/16/2024 Telephone Adult Medicine [address] [phone] Ashley Hernandez, RN 08/15/2024 7:30 AM EST Ancillary Procedure [facility] - [facility] [address] [facility] [address] [place] [phone] Leg swelling 07/26/2024 Nurse Triage Adult [address] [phone] Maida Anne, MD 07/26/2024 Telephone Adult [address] [phone] Ashley Hernandez RN 07/17/2024 5:00 PM EST Office Visit [address] [phone] Maida Ann MD Type 2 diabetes mellitus with diabetic microalbuminuria, without long-term current use of insulin ([facility]) (Primary Dx); Morbid obesity with BMI of 45.0-49.9, adult ([facility]); Mild intermittent reactive airway disease without complication; DALE (obstructive sleep apnea); Multiple sclerosis, relapsing-remitting ([facility]); Restless leg syndrome; Gastroesophageal reflux disease without esophagitis; Anxiety and depression; Subclinical hypothyroidism; Vitamin D insufficiency; Leg swelling; Achilles tendon tear, left, initial encounter; Chronic pain of left ankle; Recurrent UTI; Surgical menopause 06/28/[address] [phone] Maida Ann MD Forms/questionnaires 06/28/[address] [phone] Valerie Ponce [place] DME request (Order for CPAP supplies sent to [facility]. Fax confirmation received. ) 06/21/2024 8:50 AM EST Office Visit Pulmonol[address] [phone] Milady Hogan NP DALE (obstructive sleep apnea) (Primary Dx); Restless leg syndrome; Mild intermittent reactive airway disease without complication; NIKKIE (mycobacterium avium-intracellulare ) ([facility]); Gastroesophageal reflux disease without esophagitis 06/04/2024 Telephone Adult [address] [phone] Jessy Alvarez LPN Diarrhea; Medication Problem (Metformin ) from Last 3 Months Immunizations Name Administration Dates Next Due H1N1 Inj Preservative Free 07/17/2009 Influenza Quadravalent, MDCK , 0.5ml, with preservative (Flucelvax) 6mo and older 05/15/2023,05/18/2022,07/15/2021,04/08,05/08/2019,03/24/2018,04/06/2017 Influenza trivalent, 0.5mL, preservative free (Fluarix; FluLaval; Fluzone) ages 6mo and older (Afluria) 3 years and older 05/04/2016,05/04/2013,06/04/2012,05/12,04/30/2010,07/17/2009,04/29/2008 ,05/25/2007 Influenza, Unspecified 05/08/2019,03/24/2018,11/2015 Volusion SARS-CoV-2 COVID-19, mRNA, LNP-S, preservative free 05/24/2021,12/08/2020 [...] HISTORICAL TUBAL LIGATION BREAST REDUCTION 1999 PROCEDURE: [place] BREAST REDUCTION OTHER SURGICAL HISTORY 2021 PROCEDURE: HISTORICAL PELVISCOPY; COMMENT: Lap right oophorectomy for ovarian cyst at [facility] HYSTERECTOMY 01/17/2024 N/A PROCEDURE: HISTORICAL HYSTERECTOMY; COMMENT: TLH, LSO Medical History Medical History Date Comments 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); COMMENT: treated 2007 - Dr Serrano Other emphysema ([facility]/H[facility]) 03/29/2007 DX:Oth er emphysema ([facility]); COMMENT: h/o lung nodules- was seeing Dr [...] Description 11/05/2024 2:00 PM EDT Consult Urogynecology [facility] [address] [place] [address] Sandra Monk MD [address] [facility] [address] [place] [address] 12/19/2024 10:30 AM EDT Office Visit Pulmonolgy - [place] [address] [facility] [address] [place] [phone] Milady Hogan NP [address] [facility] [address] [place] [address] Health Maintenance Due Date Last Done Comments [...] microalbuminuria, without long-term current use of insulin ([facility]) HEMOGLOBIN A1C Routine 08/13/2024 11:59 AM EST Type 2 diabetes mellitus with diabetic microalbuminuria, without long-term current use of insulin ([facility]) LIPID PANEL WITH REFLEX TO DIRECT LDL Routine 08/13/2024 11:59 AM EST Type 2 diabetes mellitus with diabetic microalbuminuria, without long-term current use of insulin ([facility]) THYROID STIMULATING HORMONE WITH REFLEX TO FREE T4 AND FREE T3 Routine 08/13/2024 11:59 AM EST Subclinical hypothyroidism VITAMIN D 25 HYDROXY Routine 08/13/2024 11:59 AM EST Vitamin D insufficiency [place] SLEEP STUDY ATTENDED 07/19/2024 DEPRESSION SCREENING Routine [...] performed with the patient in reverse trendelenburg. Lock Installer Details A aldrich scale, color and doppler analysis ultrasound was performed. During the study longitudinal and transverse views were obtained. Pulsed wave doppler was performed. Maida Ann MD CV VASCU LAR PROCEDURES * (ABNORMAL) Microalbumin creatinine urine ratio (08/13/2024 1:30 PM EST) Creatinine, Urine 224.0 mg/dL LAB CHEMISTRY METHOD 08/13/2024 10:[address] [facility] Microalb, Ur 38.7(H) 0.0 - 29.0 mg/L LAB CHEMISTRY METHOD 08/13/2024 10:[address] [facility] Microalb/Crea t Ratio 17 <30 mg/g creat LAB CHEMISTRY METHOD 08/13/2024 10:[address] [facility] Urine Urine specimen obtained by clean catch procedure / Unknown Non-blood Collection / Unknown 08/13/2024 1:30 PM EST 08/13/2024 1:30 PM EST Maida Ann MD LAB URIN E ORDERABLES [facility] [address] [place] [address], * Thyroid stimulating hormone with reflex to free t4 and free t3 (08/13/2024 11:59 AM EST) TSH 2.95 0.40 - 4.00 mcIU/mL LAB CHEMISTRY METHOD 08/13/2024 4:[address] [facility] Blood Venous blood specimen / Unknown Venipuncture / Unknown 08/13/2024 11:59 AM EST 08/13/2024 11:59 AM EST Maida Ann MD LAB BLOO D ORDERABLES [facility] [address] [place] [address], * (ABNORMAL) Lipid panel with reflex to [...] LAB BLOO D ORDERABLES Performing Organization Address City/[facility]/ZIP Co de Phone Number [facility] [address] [place] [address], * Vitamin D 25 hydroxy (08/13/2024 11:59 AM EST) Vit D, 25-Hydroxy 68.8 30.0 - 80.0 ng/mL LAB CHEMISTRY METHOD 08/13/2024 4:[address] [facility] Blood Venous blood specimen / Unknown Venipuncture / Unknown 08/13/2024 11:59 AM EST 08/13/2024 11:59 AM EST Maida Ann MD LAB BLOO D ORDERABLES Performing Organization Address [facility] Co de Phone Number [facility] [address] [place] [address], [place] [phone] * (ABNORMAL) Hemoglobin A1c (08/13/2024 11:59 AM EST) [facility] Hemoglobin A1C 6.8(H) <6.5 % LAB CHEMISTRY METHOD 08/13/2024 9:[address] [facility] Mean Bld Glu Estim. 148 mg/dL LAB CHEMISTRY METHOD 08/13/2024 9:[address] [facility] Blood Venous blood specimen / Unknown Venipuncture / Unknown 08/13/2024 11:59 AM EST 08/13/2024 11:59 AM EST Maida Ann MD LAB BLOO D ORDERABLES Performing Organization Address City/[facility]/ZIP Co de Phone Number [facility] [address] [place] [address], [place] [phone] * General sleep study (07/19/2024) Provider [facility] CENTER ORD ERABLES * Depression Screening (01/03/2024) [facility] Depression Screening abstracted Historical Provider [facility] Annual BMP Blood Test (12/21/2023) [facility] Annual BMP Blood Test abstracted Historical Provider [facility] * Diabetes Foot Exam (06/12/2023) [facility] Diabetes: Annual Foot Exam abstracted Historical Provider [facility] * Diabetes Eye Exam (02/21/2023) [facility] Diabetes: Annual Retina Eye Exam abstracted [facility] Provider [facility] * Cervical Cancer Screening: HPV (02/21/2020) [facility] Cervical Cancer Screening: HPV abstracted, negative Historical Provider [facility] * HIV Screening (02/21/2020) [facility] HIV Screening abstracted [facility] Provider [facility] [place] [facility] Hepatitis C Screening (02/21/2020) [facility] Hepatitis C Screening abstracted Historical Provider [facility] from Last 3 Months or Most Recently Relevant to Health Maintenance Care Teams Aeronautical Drafter Relationship Specialty Start Date End Date Maida Ann MD [address] [place], [place] PCP - General Internal Medicine 03/09/22
--- OUTSIDE RECORDS SUMMARY | 2024-08-28 15:11 | XMS_ITS | Encounter Summary ---
Author Organization [facility] Address [address] [place] [address] Care Team Providers Care Wine Sales Representative Name Role Phone Maida Ann MD Primary Care Pr ovider Reason for Visit * Imaging (Routine) - Closed Specialty Diagnoses / Procedures Referred By Contac t Referred To Contact Diagnoses Leg swelling Procedures Vascular US duplex lower extremity venous insufficiency bilateral Vascular US duplex lower extremity venous bilateral Maida Ann MD [address] [place] [address] [facility] Referral ID Status Reason Start Date Expiration Date Visits Re quested Visits Authorized [id number] Closed 07/17/2024 07/17/2025 1 1 Encounter Details Date Type Department Care Team ([facility] Contact Info) Description 08/15/2024 7:30 AM EST Ancillary Procedure [facility] - [facility] [address] [facility] [address] [place] [address] Leg swelling Social History Tobacco Use Types [...] 11/05/2024 2:00 PM EDT Consult Urogynecology - [place] [address] [place] [address] Sandra Monk MD [address] [facility] [address] [place] [address] 12/19/2024 10:30 AM EDT Office Visit Pulmonolgy - [place] [address] [place] [address] Milady Hogan NP [address] [place] [address] documented as of this encounter Procedures Procedure [...] performed with the patient in reverse trendelenburg. Captain Airline Pilot Details A aldrich scale, color and doppler analysis ultrasound was performed. During the study longitudinal and transverse views were obtained. Pulsed wave doppler was performed. Maida Ann MD CV VASCU LAR PROCEDURES documented in this encounter Visit Diagnoses Diagnosis Leg swelling Swelling of limb documented in this encounter Care Teams Wine Sales Representative Relationship Specialty Start Date End Date Maida Ann MD [address] [place], [place] PCP - General Internal Medicine 03/09/22 documented as of this encounter
--- OUTSIDE RECORDS SUMMARY | 2024-08-28 15:11 | XMS_ITS | Encounter Summary ---
Author Organization [employer] Address [address] [place] [address] Care Team Providers Care Brick Setter Name Role Phone Maida Ann MD Primary Care Pr ovider Encounter Details Date Type Department Care Team (Late st Contact Info) Description 08/16/2024 Telephone Adult Medicine [address] [phone] Ashley Hernandez, RN Social History Tobacco Use [...] like Tdap. She went to her local [facility] pharmacy and they did not have it available. documented in this encounter Plan of Treatment Upcoming Encounters Date Type Department Care Team (Late st Contact Info) Description 11/05/2024 2:00 PM EDT Consult Urogynecology [address] [phone] Sandra Monk MD [address] [place] [address] [address] [place] [address] 12/19/2024 10:30 AM EDT Office Visit Pulmonolgy - [place] [address] [place] [address] Milady Hogan, MINISTERIO [address] [place] [address] Scheduled Orders Name Type Priority Associated Diagnoses [...] 08/16/2024 documented in this encounter Care Teams Brick Setter Relationship Specialty Start Date End Date Maida Ann MD [address] [facility], [place] PCP - General Internal Medicine 03/09/22 documented as of this encounter
--- OUTSIDE RECORDS SUMMARY | 2024-08-28 15:12 | XMS_ITS | Encounter Summary ---
Author Organization [facility] Address [address] [place] [address] Care Team Providers Care Kids Club Attendant Name Role Phone Maida Ann MD Primary Care Pr ovider Reason for Visit * Reason Onset Date Comments prior authorization 08/20/2024 albuterol Encounter Details Date Type Department Care Team ([facility] st Contact Info) Description 08/20/2024 Telephone [facility] [address] [facility] [address] [place] [phone] Nurys Arnold [place] prior authorization (albuterol) Social [...] Center ( Prior Auth Pool) Inez Mckeon Counts Include [address] [facility] Prior Authorization Ext [id number] * Nurys Thurman [place] - 08/20/2024 3:51 PM EST can you send a PA for the rescue inhaler to [facility] so it will cover the copay. I use the name brand which [facility] covers but MH needs a PA documented in this encounter Plan of Treatment Upcoming Encounters Date Type Department Care Team (Late st Contact Info) Description 11/05/2024 2:00 PM EDT Consult Urogynecology [address] [phone] Sandra Monk MD [address] [facility] [address] [place] [address] 12/19/2024 10:30 AM EDT Office Visit Pulmonolgy - [place] [address] [facility] [address] [place] [address] Milady Hogan NP 175 [facility] [address] [place] [address] documented as of this encounter Visit Diagnoses Not on filedocumented in this encounter Care Teams Kids Club Attendant Relationship Specialty Start Date End Date Maida Ann MD [address] [place], [place] PCP - General Internal Medicine 03/09/22 documented as of this encounter
--- OUTSIDE RECORDS SUMMARY | 2024-08-28 15:12 | XMS_ITS | Encounter Summary ---
Author Organization [facility] Address [address] [place] [address] Care Team Providers Care Procurement Accountant Name Role Phone Maida Ann MD Primary Care Pr ovider Reason for Visit * Reason Comments Blood Sugar Problem Encounter Details Date Type Department Care Team ([facility] st Contact Info) Description 08/20/2024 1:45 PM EST Office Visit Endocrinology - [address] [phone] Yamil Toledo MD [address] [place] [address] Type 2 diabetes mellitus without complication, without long-term current use of insulin ([facility]) (Primary Dx) Social History Tobacco Use Types [...] complication, without long-term current use of insulin ([facility]) Inject 0.5 mL (5 mg total) under [...] Morbid obesity with BMI of 45.0-49.9, adult ([facility]) 07/17/2024 Surgical menopause 02/28/2024 Restless leg syndrome 01/03/2024 Achilles tendon tear, left, initial encounter 06/12/2023 Gastroesophageal reflux disease without esophagitis 06/12/2023 Plantar fasciitis of left foot 06/12/2023 Recurrent UTI 06/12/2023 Pelvic pain 06/01/2023 Vulvar dermatitis 06/01/2023 Gastroparesis 04/18/2023 Irritable bowel syndrome 04/18/2023 Microalbuminuria 04/18/2023 Vitamin D insufficiency 10/25/2022 Type 2 diabetes mellitus with microalbuminuria ([facility]) 07/28/2022 Reactive airway disease 08/28/2020 Subclinical hypothyroidism 05/14/2019 Anxiety and depression 12/27/2018 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 DALE (obstructive sleep apnea) 06/02/2015 Excessive sweating 02/23/2015 Multiple sclerosis, relapsing-remitting ([facility]) 02/23/2015 Sleep disorder 05/30/2011 Fatty liver 08/12/2009 NIKKIE (mycobacterium avium-intracellulare) ([facility]) 11/09/2007 Other emphysema ([facility]) 03/29/2007 Past Surgical History: Procedure Laterality Date BREAST REDUCTION 1999 PROCEDURE: ME BREAST REDUCTION CHOLECYSTECTOMY PROCEDURE: HISTORICAL CHOLECYSTECTOMY HYSTERECTOMY N/A 01/17/2024 PROCEDURE: HISTORICAL HYSTERECTOMY; COMMENT: TLH, LSO OTHER SURGICAL HISTORY PROCEDURE: LUNG BIOPSY THROUGH CHEST WALL; COMMENT: MAC OTHER SURGICAL HISTORY PROCEDURE: HISTORY OTHER; COMMENT: left cheek laceration, needed plastic surgeon OTHER SURGICAL HISTORY 2021 PROCEDURE: HISTORICAL PELVISCOPY; COMMENT: Lap right oophorectomy for ovarian cyst at [facility] TUBAL LIGATION PROCEDURE: HISTORICAL TUBAL LIGATION [...] complication, without long-term current use of insulin ([facility]) PLAN: Had a detailed discussion, doing well [...] Description 11/05/2024 2:00 PM EDT Consult Urogynecology [address] [phone] Sandra Monk MD [address] [place] [address] [address] [place] [address] 12/19/2024 10:30 AM EDT Office Visit Pulmonolgy - [place] [address] [facility] [address] [place] [address] Milady Hogan NP 175 [facility] [address] [place] [address] Scheduled Orders Name Type Priority Associated Diagnoses Orde r Schedule BUN Lab Routine Type 2 diabetes mellitus without complication, without long-term current use of insulin (CMS/HCC) Expected: 10/29/2024 (Approximate), Expires: 07/31/2025 Creatinine Lab Routine Type 2 diabetes mellitus without complication, without long-term current use of insulin ([facility]) Expected: 10/29/2024 (Approximate), Expires: 07/31/2025 Lipid panel Lab Routine Type 2 diabetes mellitus without complication, without long-term current use of insulin ([facility]) Expected: 10/29/2024 (Approximate), Expires: 07/31/2025 Hemoglobin A1c Lab Routine Type 2 diabetes mellitus without complication, without long-term current use of insulin ([facility]) Expected: 10/29/2024 (Approximate), Expires: 07/31/2025 Microalbumin creatinine urine ratio Lab Routine Type 2 diabetes mellitus without complication, without long-term current use of insulin ([facility]) Expected: 10/29/2024 (Approximate), Expires: 07/31/2025 Hemoglobin and hematocrit Lab Routine Type 2 diabetes mellitus without complication, without long-term current use of insulin ([facility]) Expected: 10/29/2024 (Approximate), Expires: 07/31/2025 documented as of this encounter Visit Diagnoses Diagnosis Type 2 diabetes mellitus without complication, without long-term current use of insulin ([facility])- Primary documented in this encounter Discontinued Medications Medication Sig Discontinue Reason Start Date End Da te tirzepatide (Mounjaro) 2.5 mg/0.5 mL injectionIndications:Typ e 2 diabetes mellitus with other specified complication, without long-term current use of insulin ([facility]) Inject 0.5 mL (2.5 mg total) under the skin every 7 (seven) days. 07/29/2024 08/20/2024 documented as of this encounter Care Teams Procurement Accountant Relationship Specialty Start Date End Date Maida Ann MD [address] [place], [place] PCP - General Internal Medicine 03/09/22 documented as of this encounter
== END 2024-08-28 13:04 | disposition home or self-care (01) ==
LOC: HO.HMGCX 13:03
PROVIDERS: Visit Provider Physician Assistant
DX: R05.1 Acute cough (principal); G35 Multiple sclerosis
CPT/HCPCS: 71046

== ENCOUNTER → 2024-08-28 13:16 | Outpatient (BNV) | payer OTHER, MEDICAID, SELFPAY | PROVIDERS: Visit Provider Radiology Diagnostic Radiology | DX: R05.9 Cough, unspecified (principal) | CPT/HCPCS: 71046 ==

== ENCOUNTER 2024-09-21 09:41 | Outpatient (AMB) | payer OTHER, MEDICAID, SELFPAY ==
--- OUTSIDE RECORDS SUMMARY | 2024-09-21 09:44 | XMS_ITS | Encounter Summary ---
Author Organization [facility] Address [address] [place] [address] Care Team Providers Care Accreditation Specialist Name Role Phone Stephany Elise MD Primary Care Provider James Bear Primary Care Provider Stephany De La Torre MD Primary Care Provider Kamlesh Sanchez MD Primary Care Provider Jorden Padgett Primary Care Provider [phone] Maida Ann MD Primary Care Provider + Encounter Details Date Type Department Care Team Description 03/08/2017 Telephone Lines Repairer Report Medical Records [address] [place] [phone] [place] Rosario MD Social History Tobacco Use [...] documented as of this encounter Care Teams Accreditation Specialist Relationship Specialty Start Date End Date Stephany Elise MD PCP - General 03/31/11 04/17/18 James Gomez PCP - General Internal Medicine 04/18/18 09/10/18 Stephany Elise MD PCP - General Internal Medicine 09/11/18 03/11/21 Kamlesh Patel MD PCP - General Internal Medicine 03/12/21 03/07/22 Jorden Kramer [address] [place] [address] PCP - General Internal Medicine 03/08/22 03/08/22 Maida Ann MD [address] [place] [address] PCP - General Internal Medicine 03/09/22 documented as of this encounter
--- OUTSIDE RECORDS SUMMARY | 2024-09-21 09:44 | XMS_ITS | Encounter Summary ---
Author Organization [facility] Address [address] [place] [address] Care Team Providers Care Backfiller Name Role Phone Stephany Elise MD Primary Care Provider James Bear Primary Care Provider Stephany De La Torre MD Primary Care Provider Kamlesh Sanchez MD Primary Care Provider Jorden Padgett Primary Care Provider [phone] Maida Ann MD Primary Care Provider + Reason for Visit * Reason Onset Date Comments Electrical Equipment Assembler Feedback 04/10/2017 Weight Managemen t Encounter Details Date Type Department Care Team Description 04/10/2017 Telephone Adult [address] [address] Stephany Elise MD Electrical Equipment Assembler Feedback (Weight Management) Social History Tobacco Use [...] forward. Thank You, Inez Petit Referrals Coordinator [facility]. documented in this encounter Plan of Treatment Not on file documented as of this encounter Visit Diagnoses Not on filedocumented in this encounter Additional Health Concerns Infection Onset Date Last Indicated Resolved Time COVID-19 Comment:Sx's started 05/23/22 tested + 05/25/22 05/25/2022 06/08/2022 10/09/2023 9:12 AM E DT documented as of this encounter Care Teams Backfiller Relationship Specialty Start Date End Date Stephany Elise MD PCP - General 03/31/11 04/17/18 James Gomez PCP - General Internal Medicine 04/18/18 09/10/18 Stephany Elise MD PCP - General Internal Medicine 09/11/18 03/11/21 Kamlesh Patel MD PCP - General Internal Medicine 03/12/21 03/07/22 Jorden Kramer [address] [place] [address] PCP - General Internal Medicine 03/08/22 03/08/22 Maida Ann MD [address] [place] [address] PCP - General Internal Medicine 03/09/22 documented as of this encounter
--- OUTSIDE RECORDS SUMMARY | 2024-09-21 09:44 | XMS_ITS | Encounter Summary ---
Author Organization [facility] Address [address] [facility] [place] [address] Care Team Providers Care Surveyor Hydrographic Name Role Phone Maida Ann MD Primary Care Provider + Reason for Visit * Reason Onset Date Comments Prior Authorization 02/10/2023 Encounter Details Date Type Department Care Team Description 02/10/2023 Telephone Adult Medicine [facility] [address] [place] [address] Maida Ann MD [address] [place] [address] [phone] Prior Authorization Social History Tobacco Use Types [...] suspected to have Coronavirus/COVID-19? No / Unsure 02/09/2023 7:40 AM EDT documented as of this encounter Miscellaneous Notes * Telephone Encounter - Arianna Aviles M.A. - 02/21/2023 2:10 PM EDT Auth now approved Exp 02/20/24 Faxed to pharm Arianna Guerra Auth Dep Ext 510 * Telephone Encounter - Arianna Aviles M.A. - 02/20/2023 4:48 PM EDT Auth denied Wants pt to have tried metformin along with the trulicity for a min of 90 days Arianna Guerra Auth Dep Ext 5102 * Telephone Encounter - Arianna Aviles M.A. - 02/20/2023 1:28 PM EDT Insurance wanted more info Faxed back Arianna Guerra Auth Dep Ext 5108 * Telephone Encounter - Arianna Aviles M.A. - 02/14/2023 1:48 PM EDT Auth sent with cover my meds Dx:E11.9 - Type 2 diabetes mellitus without complications Tried trulicity Ariannakavon Aviles Prior Auth Dep Ext 5103 * Telephone Encounter - Albert Byrd - 02/10/2023 1:38 PM EDT Prior Authorization for Medication-do not complete and send this encounter unless you have the fax from the pharmacy. Is this a Cover My Meds request: Yes -- Cash Code [id number] Name of Medication Tirzepatide (Mounjaro) 2.5 MG/0.5ML Solution Pen-injector Dose of Medication 2.5 MG/0.5ML Solution Pen-injector What is the RX # from the faxed refill? Not on form How does patient take this med? Not on form What Pharmacy did the fax come from: [facility] fax #: [phone] Third Alliance Party Information from fax: What Prescription Plan [...] documented as of this encounter Care Teams Surveyor Hydrographic Relationship Specialty Start Date End Date Maida Ann MD [address] [place] [address] PCP - General Internal Medicine 03/09/22 documented as of this encounter
--- OUTSIDE RECORDS SUMMARY | 2024-09-21 09:44 | XMS_ITS | Encounter Summary ---
Author Organization [facility] Address [address] [place] [address] Care Team Providers Care Rib Cutter Name Role Phone Stephany Elise MD Primary Care Provider James Bear Primary Care Provider Stephany De La Torre MD Primary Care Provider Kamlesh Sanchez MD Primary Care Provider Jorden Padgett Primary Care Provider [phone] Maida Ann MD Primary Care Provider + Reason for Visit * Reason Comments E-prescribe Rx Request Encounter Details Date Type Department Care Team Description 12/08/2016 Refill Dermatology [address] [place] [address] Ajit Brown PA-C E-prescribe Rx Request Social [...] documented as of this encounter Care Teams Rib Cutter Relationship Specialty Start Date End Date Stephany Elise MD PCP - General 03/31/11 04/17/18 James Gomez PCP - General Internal Medicine 04/18/18 09/10/18 Stephany Elise MD PCP - General Internal Medicine 09/11/18 03/11/21 Kamlesh Patel MD PCP - General Internal Medicine 03/12/21 03/07/22 Jorden Kramer [address] [place] [address] PCP - General Internal Medicine 03/08/22 03/08/22 Maida Ann MD [address] [place] [address] PCP - General Internal Medicine 03/09/22 documented as of this encounter
--- OUTSIDE RECORDS SUMMARY | 2024-09-21 09:44 | XMS_ITS | Encounter Summary ---
Author Organization [facility] Address [address] [place] [address] Care Team Providers Care Veterinary Nurse Name Role Phone Stephany Elise MD Primary Care Provider James Bear Primary Care Provider Stephany De La Torre MD Primary Care Provider Kamlesh Sanchez MD Primary Care Provider Jorden Padgett Primary Care Provider [phone] Maida Ann MD Primary Care Provider + Reason for Visit * Reason Comments E-prescribe Rx Request Encounter Details Date Type Department Care Team Description 11/07/2017 Refill Adult Medicine [address] [address] Stephany lEise MD E-prescribe Rx Request Social History Tobacco [...] have an upcoming appointment? No-unable to reach [facility] to call for appointment due to refill request. Appt due (THE MEDICATION REQUESTED IS ON THE MED LIST ABOVE) All of the medications requested were on the CURRENT MEDS list Did you check the Pharmacy information above?: YES Patient wants: 30 -day supply Is this a mail order prescription request ? NO Patients current insurance carrier is: Payor: [facility] MEDICAID / Plan: [facility] MEDICAID HMO $0 [place] / Product Type: HMO [id number] documented in this encounter Plan of Treatment Not on file documented as of this encounter Visit Diagnoses Not on filedocumented in this encounter Additional Health Concerns Infection Onset Date Last Indicated Resolved Time COVID-19 Comment:Sx's started 05/23/22 tested + 05/25/22 05/25/2022 06/08/2022 10/09/2023 9:12 AM E DT documented as of this encounter Care Teams Veterinary Nurse Relationship Specialty Start Date End Date Stephany Elise MD PCP - General 03/31/11 04/17/18 James Gomez PCP - General Internal Medicine 04/18/18 09/10/18 Stephany Elise MD PCP - General Internal Medicine 09/11/18 03/11/21 Kamlesh Patel MD PCP - General Internal Medicine 03/12/21 03/07/22 Jorden Kramer [address] [place] [address] PCP - General Internal Medicine 03/08/22 03/08/22 Maida Ann MD [address] [place] [address] PCP - General Internal Medicine 03/09/22 documented as of this encounter
--- OUTSIDE RECORDS SUMMARY | 2024-09-21 09:44 | XMS_ITS | Encounter Summary ---
Author Organization [facility] Address [address] [place] [address] Care Team Providers Care Slubber Frame Changer Name Role Phone Stephany Elise MD Primary Care Provider James Bear Primary Care Provider Stephany De La Torre MD Primary Care Provider Kamlesh Sanchez MD Primary Care Provider Jorden Padgett Primary Care Provider Maida Ann MD Primary Care Provider + Reason for Visit * Reason Onset Date Comments Provider Call Back 12/12/2016 Encounter Details Date Type Department Care Team Description 12/12/2016 Telephone Adult [address] [address] Stephany Elise MD Provider Call Back Social [...] Reason for call back: Patient went to [facility] ER on 12/09/16 and was diagnosed [...] documented as of this encounter Care Teams Slubber Frame Changer Relationship Specialty Start Date End Date Stephany Elise MD PCP - General 03/31/11 04/17/18 James Gomez PCP - General Internal Medicine 04/18/18 09/10/18 Stephany Elise MD PCP - General Internal Medicine 09/11/18 03/11/21 Kamlesh Patel MD PCP - General Internal Medicine 03/12/21 03/07/22 Jorden Kramer [address] [place] [address] PCP - General Internal Medicine 03/08/22 03/08/22 Maida Ann MD [address] [place] [address] PCP - General Internal Medicine 03/09/22 documented as of this encounter
--- OUTSIDE RECORDS SUMMARY | 2024-09-21 09:44 | XMS_ITS | Encounter Summary ---
Author Organization [facility] Address [address] [facility] [place] [address] Care Team Providers Care Sod Farmer Name Role Phone Maida Ann MD Primary Care Provider + Reason for Visit * Reason Onset Date Comments Prior Authorization 01/26/2023 Encounter Details Date Type Department Care Team Description 01/26/2023 Telephone Adult Medicine [facility] [address] [place] [address] Maida Ann MD [address] [place] [address] [phone] Prior Authorization Social History Tobacco Use Types [...] air Arianna Aviles Prior Auth Dep Ext 510 * Telephone Encounter - Albert Byrd - 01/26/2023 8:04 AM EDT Prior Authorization for Medication-do not complete and send this encounter unless you have the fax from the pharmacy. Is this a Cover My Meds request: Yes -- Cash Code [id number] Name of Medication Albuterol Sulfate (ProAir RespiClick) 108 (90 Base) MCG/ACT AEROSOL POWDER,BREATH ACTIVATED Dose of Medication 108 (90 Base) MCG/ACT AEROSOL POWDER,BREATH ACTIVATED What is the RX # from the faxed refill? Not on form How does patient take this med? Not on form What Pharmacy did the fax come from: [facility] fax #: [phone] Third Libertarian Information from fax: What Prescription [...] documented as of this encounter Care Teams Sod Farmer Relationship Specialty Start Date End Date Maida Ann MD [address] [place] [address] PCP - General Internal Medicine 03/09/22 documented as of this encounter
--- OUTSIDE RECORDS SUMMARY | 2024-09-21 09:44 | XMS_ITS | Encounter Summary ---
Author Organization [facility] Address [address] [place] [address] Care Team Providers Care Airframe And Powerplant Technician Name Role Phone Stephany Elise MD Primary Care Provider James Bear Primary Care Provider Stephany De La Torre MD Primary Care Provider Kamlesh Sanchez MD Primary Care Provider Jorden Padgett Primary Care Provider [phone] Maida Ann MD Primary Care Provider + Encounter Details Date Type Department Care Team Description 03/07/2017 Ice Cream Server Report Medical Records [address] [place] [address] Nona Armstrong Social History Tobacco Use Types [...] documented as of this encounter Care Teams Airframe And Powerplant Technician Relationship Specialty Start Date End Date Stephany Elise MD PCP - General 03/31/11 04/17/18 James Gomez PCP - General Internal Medicine 04/18/18 09/10/18 Stephany Elise MD PCP - General Internal Medicine 09/11/18 03/11/21 Kamlesh Patel MD PCP - General Internal Medicine 03/12/21 03/07/22 Jorden Kramer [address] [place] [address] PCP - General Internal Medicine 03/08/22 03/08/22 Maida Ann MD [address] [place] [address] PCP - General Internal Medicine 03/09/22 documented as of this encounter
--- OUTSIDE RECORDS SUMMARY | 2024-09-21 09:44 | XMS_ITS | Encounter Summary ---
Author Organization [facility] Address [address] [place] [address] Care Team Providers Care Wire Rigger Name Role Phone Stephany Elise MD Primary Care Provider James Bear Primary Care Provider Stephany De La Torre MD Primary Care Provider Kamlesh Sanchez MD Primary Care Provider Jorden Padgett Primary Care Provider [phone] Maida Ann MD Primary Care Provider + Reason for Visit * Reason Onset Date Comments refill request 12/29/2017 Encounter Details Date Type Department Care Team Description 12/29/2017 Refill Adult Medicine [address] [address] Stephany Elise MD refill request Social History [...] NO Patients current insurance carrier is: Payor: [employer] / Plan: [employer] / Product Type: MEDICAID RISK documented in this encounter Plan of Treatment Not on file documented as of this encounter Visit Diagnoses Not on filedocumented in this encounter Additional Health Concerns Infection Onset Date Last Indicated Resolved Time COVID-19 Comment:Sx's started 05/23/22 tested + 05/25/22 05/25/2022 06/08/2022 10/09/2023 9:12 AM E DT documented as of this encounter Care Teams Wire Rigger Relationship Specialty Start Date End Date Stephany Elise MD PCP - General 03/31/11 04/17/18 James Gomez PCP - General Internal Medicine 04/18/18 09/10/18 Stephany Elise MD PCP - General Internal Medicine 09/11/18 03/11/21 Kamlesh Patel MD PCP - General Internal Medicine 03/12/21 03/07/22 Jorden Kramer [address] [place] [address] PCP - General Internal Medicine 03/08/22 03/08/22 Maida Ann MD [address] [place] [address] PCP - General Internal Medicine 03/09/22 documented as of this encounter
--- OUTSIDE RECORDS SUMMARY | 2024-09-21 09:44 | XMS_ITS | Encounter Summary ---
Author Organization [facility] Address [address] [place] [address] Care Team Providers Care Automotive Painter Helper Name Role Phone Maida Ann MD Primary Care Pr ovider Reason for Referral * Consultation (Routine) - Authorized Specialty Diagnoses / Procedures Referred By Michael t Referred To Contact Nephrology Diagnoses Type 2 diabetes mellitus with microalbuminuria ([facility]) Maida Ann MD [address] [place] [address] Phone: tel: fax: Nephrology [address] [address] Phone: tel: fax: Referral ID Status Reason Start Date Expiration Date Visits Requested Visits Authorized [id number] Authorized Specialty Services Required 08/27/2024 08/27/2025 1 1 Encounter Details Date Type Department Care Team (Late st Contact Info) Description 08/27/2024 Telephone Adult Medicine [address] [phone] Maida Ann MD [address] [place] [address] [phone] Social History Tobacco Use Types Packs/Day Years Used Date Smoking Tobacco: Never Smokeless Tobacco: Never Alcohol Use Standard Drinks/Week Comments No 0 (1 standard drink = 0.6 oz pur e alcohol) Comments Unknown Sex and Gender Information Value Date Recorded Sex Assigned at Not on file Legal Sex Female 4:52 PM EST Gender Identity Not on file Sexual Orientation Not on file documented as of this [...] Care Team (Late st Contact Info) Description 12/04/2024 2:00 PM EDT Consult Urogynecology [address] [address] Sandra Monk MD [address] [place] [address] [address] [place] [address] 12/19/2024 10:30 AM EDT Office Visit Pulmonolgy - [place] [address] [facility] [address] [place] [phone] Milady Hogan NP [address] [facility] [address] [place] [address] Scheduled Referrals Name Type Priority Associated Diagnoses Orde r Schedule Ambulatory referral to Nephrology Outpatient Referral Routine Type 2 diabetes mellitus with microalbuminuria ([facility]) 1 Occurrences starting 08/27/2024 until 08/27/2025 documented as of this encounter Visit Diagnoses Diagnosis 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)- Primary documented in this encounter Care Teams Automotive Painter Helper Relationship Specialty Start Date End Date Maida Ann MD [address] [place], [place] PCP - General Internal Medicine 03/09/22 documented as of this encounter
--- OUTSIDE RECORDS SUMMARY | 2024-09-21 09:44 | XMS_ITS | Encounter Summary ---
Author Organization [facility] Address [address] [place] [address] Care Team Providers Care Back Up Machine Operator Name Role Phone Stephany Elise MD Primary Care Provider James Bear Primary Care Provider Stephany De La Torre MD Primary Care Provider Kamlesh Sanchez MD Primary Care Provider Jorden Padgett Primary Care Provider [phone] Maida Ann MD Primary Care Provider + Reason for Visit * Reason Comments E-prescribe Rx Request Encounter Details Date Type Department Care Team Description 01/28/2017 Refill Adult Medicine [address] [address] Stephany Elise MD E-prescribe Rx Request Social [...] encounter Miscellaneous Notes * Telephone Encounter - Nikki Maradiaga - 01/30/2017 1:58 PM EDT Patient would like script to be: E-PRESCRIBED/FAXED TO PHARMACY WHEN WAS THE PATIENT'S LAST APPOINTMENT IN ADULT MEDICINE? 12/29/16 WHEN WAS THE LAST TIME THE PATIENT SAW THEIR PCP? Same as above Does patient have an upcoming appointment? No-[facility]able [facility] appointment due to refill request. Appt due (THE MEDICATION REQUESTED IS ON THE MED LIST ABOVE) All of the medications requested were on the CURRENT MEDS list Did you check the Pharmacy information above?: YES Patient wants: 30 -day supply Is this a mail order prescription request ? NO Patients current insurance carrier is: Payor: [facility] MEDICAID / Plan: [facility] MEDICAID O $0 [place] / Product Type: HMO [id number] documented in this encounter Plan of Treatment Not on file documented as of this encounter Visit Diagnoses Diagnosis Morbid obesity, unspecified obesity type (HCC) documented in this encounter Additional Health Concerns Infection Onset Date Last Indicated Resolved Time COVID-19 Comment:Sx's started 05/23/22 tested + 05/25/22 05/25/2022 06/08/2022 10/09/2023 9:12 AM E DT documented as of this encounter Care Teams Back Up Machine Operator Relationship Specialty Start Date End Date Stephany Elies MD PCP - General 03/31/11 04/17/18 James Gomez PCP - General Internal Medicine 04/18/18 09/10/18 Stephany Elise MD PCP - General Internal Medicine 09/11/18 03/11/21 Kamlesh Patel MD PCP - General Internal Medicine 03/12/21 03/07/22 Jorden Kramer [address] [place] [address] PCP - General Internal Medicine 03/08/22 03/08/22 Maida Ann MD [address] [place] [address] PCP - General Internal Medicine 03/09/22 documented as of this encounter
--- OUTSIDE RECORDS SUMMARY | 2024-09-21 09:45 | XMS_ITS | Encounter Summary ---
Author Organization [facility] Address [address] [place] [address] Care Team Providers Care Hoe Worker Name Role Phone Maida Ann MD Primary Care Pr ovider Reason for Visit * Reason Onset Date Comments prior authorization 08/20/2024 albuterol Encounter Details Date Type Department Care Team ([facility] st Contact Info) Description 08/20/2024 Telephone Pulmonol - [place] [address] [facility] [address] [place] [address] Nurys Arnold [place] prior authorization (albuterol) Social [...] of this encounter Ordered Prescriptions Prescription Sig Dispense Quantity Refills Last Filled Start Date End Date albuterol HFA (Ventolin HFA) 90 mcg/actuation inhalerIndications: Mild intermittent reactive airway disease without complication Inhale 2 puffs by mouth every 4 (four) hours if needed for wheezing. 6.7 g 3 09/06/2024 documented in this encounter Progress Notes * Inez Gan [...] . Thank you Please reply back to ANNE MARIEG [facility] ( Prior Auth Pool) Inez Mckeon [facility] Prior Authorization Ext [id number] * Nurys Thurman [place] - 08/20/2024 3:51 PM EST can you send a PA [facility] so [facility] will cover the copay. I use the name brand which [facility] covers but needs a PA documented in this encounter Plan of Treatment Upcoming Encounters Date Type Department Care Team (Late st Contact Info) Description 12/04/2024 2:00 PM EDT Consult Urogynecology - [address] [phone] Sandra Monk MD [address] [facility] [address] [place] [address] 12/19/2024 10:30 AM EDT Office Visit Pulmonolgy - [place] [address] [facility] [address] [place] [phone] Milady Hogan NP [address] [facility] [address] [place] [address] documented as of this encounter Visit Diagnoses Diagnosis Mild intermittent reactive airway disease without complication- Primary documented in this encounter Discontinued Medications Medication Sig Discontinue Reason Start Date End Da te albuterol HFA (Ventolin HFA) 90 mcg/actuation inhaler Inhale 2 Puffs into the lungs 4 times daily as needed for Cough, Wheezing or Shortness of Breath (or chest tightness). Reorder 03/14/2024 09/06/2024 documented as of this encounter Care Teams Hoe Worker Relationship Specialty Start Date End Date Maida Ann MD [address] [place], [place] PCP - General Internal Medicine 03/09/22 documented as of this encounter
--- OUTSIDE RECORDS SUMMARY | 2024-09-21 09:45 | XMS_ITS | Encounter Summary ---
Author Organization [facility] Address [address] [place] [address] Care Team Providers Care Billet Examiner Name Role Phone Stephany Elise MD Primary Care Provider James Bear Primary Care Provider Stephany De La Torre MD Primary Care Provider Kamlesh Sanchez MD Primary Care Provider Jorden Padgett Primary Care Provider [phone] Maida Ann MD Primary Care Provider + Encounter Details Date Type Department Care Team Description 12/19/2011 Cotton Ball Machine Tender Report Medical Records [address] [place] [address] Aleksander Tovar MD Social History Tobacco Use [...] documented as of this encounter Care Teams Billet Examiner Relationship Specialty Start Date End Date Stephany Elise MD PCP - General 03/31/11 04/17/18 James Gomez PCP - General Internal Medicine 04/18/18 09/10/18 Stephany Elise MD PCP - General Internal Medicine 09/11/18 03/11/21 Kamlesh Patel MD PCP - General Internal Medicine 03/12/21 03/07/22 Jorden Kramer [address] [place] [address] PCP - General Internal Medicine 03/08/22 03/08/22 Maida Ann MD [address] [place] [address] PCP - General Internal Medicine 03/09/22 documented as of this encounter
--- OUTSIDE RECORDS SUMMARY | 2024-09-21 09:45 | XMS_ITS | Encounter Summary ---
Author Organization [facility] [place] [facility] Address [address] [place] [address] Care Team Providers Care Internet Sales Consultant Name Role Phone Stephany Elise MD Primary Care Provider James Bear Primary Care Provider Stephany De La Torre MD Primary Care Provider Kamlesh Sanchez MD Primary Care Provider Jorden Padgett Primary Care Provider [phone] Maida Ann MD Primary Care Provider + Encounter Details Date Type Department Care Team Description 03/31/2016 [facility] Medical Records [address] [place] [address] Nona Armstrong Social History Tobacco Use Types [...] documented as of this encounter Care Teams Internet Sales Consultant Relationship Specialty Start Date End Date Stephany Elise MD PCP - General 03/31/11 04/17/18 James Gomez PCP - General Internal Medicine 04/18/18 09/10/18 Stephany Eilse MD PCP - General Internal Medicine 09/11/18 03/11/21 Kamlesh Patel MD PCP - General Internal Medicine 03/12/21 03/07/22 Jorden Kramer [address] [place] [address] PCP - General Internal Medicine 03/08/22 03/08/22 Maida Ann MD [address] [place] [address] PCP - General Internal Medicine 03/09/22 documented as of this encounter
--- OUTSIDE RECORDS SUMMARY | 2024-09-21 09:45 | XMS_ITS | Encounter Summary ---
Author Organization [facility] Address [address] [place] [address] Care Team Providers Care Photo Intern Name Role Phone Stephany Elise MD Primary Care Provider James Bear Primary Care Provider Stephany De La Torre MD Primary Care Provider Kamlesh Sanchez MD Primary Care Provider Jorden Padgett Primary Care Provider [phone] Maida Ann MD Primary Care Provider + Encounter Details Date Type Department Care Team Description 06/20/2014 Release of Information Medical Records [address] [place] [address] Abstract, Provider Social History Tobacco Use Types [...] documented as of this encounter Care Teams Photo Intern Relationship Specialty Start Date End Date Stephany Elise MD PCP - General 03/31/11 04/17/18 James Gomez PCP - General Internal Medicine 04/18/18 09/10/18 Stephany Elise MD PCP - General Internal Medicine 09/11/18 03/11/21 Kamlesh Patel MD PCP - General Internal Medicine 03/12/21 03/07/22 Jorden Kramer [address] [place] [address] PCP - General Internal Medicine 03/08/22 03/08/22 Maida Ann MD [address] [place] [address] PCP - General Internal Medicine 03/09/22 documented as of this encounter
--- OUTSIDE RECORDS SUMMARY | 2024-09-21 09:45 | XMS_ITS | Encounter Summary ---
Author Organization [facility] Address [address] [place] [address] Care Team Providers Care Director Talent Management Name Role Phone Stephany Elise MD Primary Care Provider James Bear Primary Care Provider Stephany De La Torre MD Primary Care Provider Kamlesh Sanchez MD Primary Care Provider Jorden Padgett Primary Care Provider [phone] Maida Ann MD Primary Care Provider + Encounter Details Date Type Department Care Team Description 04/28/2014 Farmworker Vegetable Report Medical Records [address] [place] [id number] Nona Armstrong Social History Tobacco Use Types [...] documented as of this encounter Care Teams Director Talent Management Relationship Specialty Start Date End Date Stephany Elise MD PCP - General 03/31/11 04/17/18 James Gomez PCP - General Internal Medicine 04/18/18 09/10/18 Stephany Elise MD PCP - General Internal Medicine 09/11/18 03/11/21 Kamlesh Patel MD PCP - General Internal Medicine 03/12/21 03/07/22 Jorden Kramer [address] [place] [phone] PCP - General Internal Medicine 03/08/22 03/08/22 Maida Ann MD [address] [place] [address] PCP - General Internal Medicine 03/09/22 documented as of this encounter
--- OUTSIDE RECORDS SUMMARY | 2024-09-21 09:45 | XMS_ITS | Encounter Summary ---
Author Organization [facility] Address [address] [place] [address] Care Team Providers Care Microarray Analyst Name Role Phone Maida Ann MD Primary Care Provider + Encounter Details Date Type Department Care Team Description 03/03/2023 Orders Only Medical Records [address] [place] [address] Abstract, Provider Social History Tobacco Use Types [...] suspected to have Coronavirus/COVID-19? No / Unsure 03/03/2023 10:34 AM EDT documented as of this encounter Plan of Treatment Not on file documented as of this encounter Procedures Procedure Name Priority Date/Time Associated Diagnosis Comments OUTSIDE EYE EXAM Routine 02/21/2023 documented in this encounter Results * OUTSIDE EYE EXAM (02/21/2023) Provider Abstract PROCEDURES documented in this encounter Visit Diagnoses Not on filedocumented in this encounter Additional Health Concerns Infection Onset Date Last Indicated Resolved Time COVID-19 Comment:Sx's started 05/23/22 tested + 05/25/22 05/25/2022 06/08/2022 10/09/2023 9:12 AM E DT documented as of this encounter Care Teams Microarray Analyst Relationship Specialty Start Date End Date Maida Ann MD [address] [place] [address] PCP - General Internal Medicine 03/09/22 documented as of this encounter
--- OUTSIDE RECORDS SUMMARY | 2024-09-21 09:45 | XMS_ITS | Encounter Summary ---
Author Organization [facility] Address [address] [place] [address] Care Team Providers Care Hospital Intern Name Role Phone Maida Ann MD Primary Care Pr ovider Encounter Details Date Type Department Care Team (Late st Contact Info) Description 08/16/2024 Telephone Adult Medicine [address] [phone] Ashley Hernandez RN Social History Tobacco Use Types Packs/Day [...] Refills Last Filled Start Date End Date losartan (Cozaar) 25 mg tabletIndications: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) Take 1 tablet (25 mg total) by mouth 1 (one) time each day. 90 each 1 08/16/2024 5 rosuvastatin (CRESTOR) 10 mg tabletIndications:Mixe d hyperlipidemia Take 1 tablet (10 mg total) by mouth 1 (one) time each day. 90 each 1 08/16/2024 5 documented in this encounter Progress Notes * Isamar Hollingsworth RN - 09/04/2024 8:45 AM EST Contacted pt and reviewed message, she has picked up scripts, agreed to future labs and will call for nurse visit for the TDAP * Ashley Hernandez RN - 08/16/2024 2:06 [...] Tdap. She went to her local [facility] pharmacy and they did not have it available. documented in this encounter Plan of Treatment Upcoming Encounters Date Type Department Care Team (Late st Contact Info) Description 12/04/2024 2:00 PM EDT Consult Urogynecology - [place] [address] [place] [address] Sandra Monk MD [address] [place] [address] 12/19/2024 10:30 AM EDT Office Visit Pulmonolgy - [place] [address] [facility] [address] [place] [address] Milady Hogan NP [address] [facility] [address] [address] [place] [address] Scheduled Orders Name Type Priority Associated Diagnoses [...] 08/16/2024 documented in this encounter Care Teams Hospital Intern Relationship Specialty Start Date End Date Maida Ann MD [address] [facility], [place] PCP - General Internal Medicine 03/09/22 documented as of this encounter
--- OUTSIDE RECORDS SUMMARY | 2024-09-21 09:45 | XMS_ITS | Encounter Summary ---
Author Organization [facility] Address [address] [place] [address] Care Team Providers Care Dehydration Plant Operator Name Role Phone Stephany Elise MD Primary Care Provider Kamlesh Sanchez MD Primary Care Provider Jorden Padgett Primary Care Provider [phone] Maida Ann MD Primary Care Provider + Reason for Visit * Reason Onset Date Comments Tick Bite 12/31/2018 Encounter Details Date Type Department Care Team Description 12/31/2018 Telephone Adult [address] [address] Stephany Elise MD Tick Bite Social History Tobacco Use Types Packs/Day Years [...] Telephone Encounter - Chela Kwon R.N. - 12/31/2018 1:09 PM EDT Pt [facility] in [place] with friend who has 6 dogs. Today she noticed black spot inher pubic area. She isn't able to tell if its a tick or possible ingrown hair. Appt today at 4pm with Dr. Pace. * Telephone Encounter - Ivette Gomez - 12/31/2018 12:28 PM EDT Symptoms patient is presenting: feels she got bitten by a tick in her pubic area or it might be a ingroin hair she is not sure asking to speak to the nurse If pain or injury related was it due to an accident at work or from a motor vehicle accident? NO If yes, gather 3rd alliance party insurance information Date of accident/Injury: How long has patient had these symptoms?: today PCP: Stephany Elise Payor: [employer] / Plan: [employer] [facility] / Product Type: MEDICAID RISK documented in this encounter Plan of Treatment Not on file documented as of this encounter Visit Diagnoses Not on filedocumented in this encounter Additional Health Concerns Infection Onset Date Last Indicated Resolved Time COVID-19 Comment:Sx's started 05/23/22 tested + 05/25/22 05/25/2022 06/08/2022 10/09/2023 9:12 AM E DT documented as of this encounter Care Teams Dehydration Plant Operator Relationship Specialty Start Date End Date Stephany Elise MD PCP - General Internal Medicine 09/11/18 03/11/21 Kamlesh Patel MD PCP - General Internal Medicine 03/12/21 03/07/22 Jorden Kramer [address] [place] [address] PCP - General Internal Medicine 03/08/22 03/08/22 Maida Ann MD [address] [place] [address] PCP - General Internal Medicine 03/09/22 documented as of this encounter
--- OUTSIDE RECORDS SUMMARY | 2024-09-21 09:45 | XMS_ITS | Encounter Summary ---
Author Organization [facility] Address [address] [place] [address] Care Team Providers Care Full Stack Engineer Name Role Phone Maida Ann MD Primary Care Provider + Reason for Visit * Reason Onset Date Comments Prior Authorization 03/15/2024 [place] Encounter Details Date Type Department Care Team Description 03/15/2024 Telephone Endocrinology [address] [address] Yamil Toledo MD [address] [place] [phone] Prior Authorization ([place]) Social History Tobacco Use Types Packs/Day Years [...] encounter Miscellaneous Notes * Telephone Encounter - David Mtz M.A. - 03/28/2024 4:44 PM EDT Fax sent to [employer] with additional information * Telephone Encounter - Katie Carty - 03/28/2024 2:42 PM EDT Sray from [employer] [facility] calling states This mediction has been denied: states more informetion is needed: Case ID number is : [id number] Call back for more questions is : [phone] * Telephone Encounter - David Mtz M.A. - 03/27/2024 5:00 PM EDT [facility] submitted to [facility] DX Code: E66.01 * Telephone Encounter - Brenda England - 03/15/2024 2:43 PM EDT Prior Authorization for Medication-do not complete and send this encounter unless you have the fax from the pharmacy. Is this a Cover My Meds request: [place] of Medication Wegovy Dose of Medication 0.25 MG/0.5ML What is the RX # from the faxed refill? How does patient take this med? Inject 0.25 mg into skin once a week What Pharmacy did the fax come from: patient brought form in person Pharmacy fax #: [facility] Information from fax: What Prescription Plan does the patient have? [facility], fax form to [phone] [facility]UC[facility] if applicable: Cardholder ID:[id number] Person Code: Relationship Code: Help desk phone: [phone] documented in this encounter Plan of Treatment Not on file documented as of this encounter Visit Diagnoses Not on filedocumented in this encounter Care Teams Full Stack Engineer Relationship Specialty Start Date End Date Maida Ann MD [address] [place] [address] PCP - General Internal Medicine 03/09/22 documented as of this encounter
--- OUTSIDE RECORDS SUMMARY | 2024-09-21 09:45 | XMS_ITS | Encounter Summary ---
Author Organization [facility] Address [address] [place] [address] Care Team Providers Care Director Nurses' Registry Name Role Phone Maida Ann MD Primary Care Provider + Encounter Details Date Type Department Care Team Description 04/10/2024 Multimedia Authoring Specialist Report Medical Records [address] [place] [address] Uzma Sigala PA-C Social History Tobacco Use [...] on filedocumented in this encounter Care Teams Director Nurses' Registry Relationship Specialty Start Date End Date Maida Ann MD [address] [place] [address] PCP - General Internal Medicine 03/09/22 documented as of this encounter
--- OUTSIDE RECORDS SUMMARY | 2024-09-21 09:45 | XMS_ITS | Encounter Summary ---
Author Organization [facility] Address [address] [place] [address] Care Team Providers Care Social Research Assistant Name Role Phone Stephany Elise MD Primary Care Provider Brittney Burroughs MD Primary Care Provider Unavailable James Gomez Primary Care Provider Stephany De La Torre MD Primary Care Provider Kamlesh Sanchez MD Primary Care Provider Jorden Padgett Primary Care Provider [phone] Maida Ann MD Primary Care Provider + Encounter Details Date Type Department Care Team Description 06/27/2007 Hospital Medical Records [address] [place] [address] Shadi Serrano MD Social History Tobacco Use [...] documented as of this encounter Care Teams Social Research Assistant Relationship Specialty Start Date End Date Stephany Elise MD PCP - General 03/31/11 04/17/18 PacoBrittney Aguilera MD PCP - General 03/23/0703/30 James Gomez PCP - General Internal Medicine 04/18/18 09/10/18 Stephany Elise MD PCP - General Internal Medicine 09/11/18 03/11/21 Kamlesh Patel MD PCP - General Internal Medicine 03/12/21 03/07/22 Jorden Kramer [address] [place] [address] PCP - General Internal Medicine 03/08/22 03/08/22 Maida Ann MD [address] [place] [address] PCP - General Internal Medicine 03/09/22 documented as of this encounter
--- OUTSIDE RECORDS SUMMARY | 2024-09-21 09:45 | XMS_ITS | Encounter Summary ---
Author Organization [facility] Address [address] [place] [address] Care Team Providers Care Supervisor Alteration Workroom Name Role Phone James Gomez Primary Care Provider Stephany De La Torre MD Primary Care Provider Kamlesh Sanchez MD Primary Care Provider Jorden Padgett Primary Care Provider Maida Ann MD Primary Care Provider + Encounter Details Date Type Department Care Team Description 07/17/2018 Home Health Registered Nurse Report Medical Records [address] [place] [address] Nona Armstrong Social History Tobacco Use Types [...] documented as of this encounter Care Teams Supervisor Alteration Workroom Relationship Specialty Start Date End Date James Gomez PCP - General Internal Medicine 04/18/18 09/10/18 Stephany Elise MD PCP - General Internal Medicine 09/11/18 03/11/21 Kamlesh Patel MD PCP - General Internal Medicine 03/12/21 03/07/22 Jorden Kramer [address] [place] [address] PCP - General Internal Medicine 03/08/22 03/08/22 Maida Ann MD [address] [place] [address] PCP - General Internal Medicine 03/09/22 documented as of this encounter
--- OUTSIDE RECORDS SUMMARY | 2024-09-21 09:45 | XMS_ITS | Encounter Summary ---
Author Organization [facility] Address [address] [place] [address] Care Team Providers Care Emergency Medicine Name Role Phone Maida Ann MD Primary Care Pr ovider Encounter Details Date Type Department Care Team (Late Contact Info) Description 08/19/2024 Telephone Adult Medicine [address] [phone] Ashley Hernandez, ADALBERTO Social History Tobacco Use [...] Upcoming Encounters Date Type Department Care Team ([facility] Contact Info) Description 12/04/2024 2:00 PM EDT Consult Urogynecology [address] [phone] Sandra Monk MD [address] [place] [address] [address] [place] [address] 12/19/2024 10:30 AM EDT Office Visit Pulmonolgy - [place] [address] [place] [phone] Milady Hogan NP [address] [facility] [address] [place] [address] documented as of this encounter Visit Diagnoses Not on filedocumented in this encounter Care Teams Emergency Medicine Relationship Specialty Start Date End Date Maida Ann MD [address] [place], [place] PCP - General Internal Medicine 03/09/22 documented as of this encounter
--- OUTSIDE RECORDS SUMMARY | 2024-09-21 09:45 | XMS_ITS | Encounter Summary ---
Author Organization [facility] Address [address] [place] [address] Care Team Providers Care Cream Maker Name Role Phone Maida Ann MD Primary Care Provider + Reason for Visit * Reason Comments E-prescribe Rx Request Encounter Details Date Type Department Care Team Description 04/02/2024 Refill Adult Medicine [facility] [address] [place] [address] Maida Ann MD [address] [place] [phone] E-prescribe Rx Request Social History Tobacco Use [...] N/A Patients current insurance carrier is: Payor: [employer] [facility] [employer] / Plan: [employer] $[facility] / Product Type: HMO Prb-sah-Lvimlli documented in this encounter Plan of Treatment Not on file documented as of this encounter Visit Diagnoses Diagnosis Leg swelling Swelling of limb documented in this encounter Care Teams Cream Maker Relationship Specialty Start Date End Date Maida Ann MD [address] [place] [address] PCP - General Internal Medicine 03/09/22 documented as of this encounter
--- OUTSIDE RECORDS SUMMARY | 2024-09-21 09:45 | XMS_ITS | Encounter Summary ---
Author Organization [facility] Address [address] [place] [address] Care Team Providers Care Air Value Tester Name Role Phone Stephany Elise MD Primary Care Provider James Bear Primary Care Provider Stephany De La Torre MD Primary Care Provider Kamlesh Sanchez MD Primary Care Provider Jorden Padgett Primary Care Provider [phone] Maida Ann MD Primary Care Provider + Encounter Details Date Type Department Care Team Description 04/11/2011 Pt. Referral Request [address] [address] Md Zach Social History Tobacco Use Types [...] documented as of this encounter Care Teams Air Value Tester Relationship Specialty Start Date End Date Stephany Elise MD PCP - General 03/31/11 04/17/18 James Gomez PCP - General Internal Medicine 04/18/18 09/10/18 Stephany Elise MD PCP - General Internal Medicine 09/11/18 03/11/21 Kamlesh Patel MD PCP - General Internal Medicine 03/12/21 03/07/22 Jorden Kramer [address] [place] [address] PCP - General Internal Medicine 03/08/22 03/08/22 Maida Ann MD [address] [place] [address] PCP - General Internal Medicine 03/09/22 documented as of this encounter
--- OUTSIDE RECORDS SUMMARY | 2024-09-21 09:45 | XMS_ITS | Clinical Summary ---
Author Organization [facility] [address] [place] [address] Address [address] [place] [address] Phone Care Team Providers Care Tax Compliance Officer Name Role Phone Maida Ann MD Primary Care Pr ovider Allergies Active Allergy Reactions Criticality Noted Date Comments Glatiramer Hives 10/18/2014 Medications baclofen (LIORESAL) 5 mg tablet 023 Active cholecalciferol (VITAMIN D-3) 125 mcg (5,000 unit) capsule TAKE 1 CAPSULE BY MOUTH EVERY DAY 023 Active citalopram (CeleXA) 20 mg tablet TAKE 1 TABLET BY MOUTH EVERY DAY 024 Active clobetasoL (TEMOVATE) 0.05 % cream APPLY TO AFFECTED AREA EVERY 2-3 DAYS 024 Active estradioL (ESTRACE) 0.01 % (0.1 mg/gram) vaginal cream Apply a small pea sized amount (0.5 g) to the vaginal opening Monday, Monday, Monday 024 2024 Active fluticasone propionate (FLONASE) 50 mcg/actuation nasal spray SHAKE LIQUID AND USE 2 SPRAYS IN EACH NOSTRIL DAILY 023 Active furosemide (LASIX) 20 mg tablet TAKE 1 TABLET BY MOUTH DAILY NEEDED (LEG SWELLING). 024 Active norethindrone (AYGESTIN) 5 mg tablet Take 1 Tablet by mouth daily. 024 Active ocrelizumab (Ocrevus) 30 mg/mL solution injection Inject into the vein. Every 6 months Active pramipexole (MIRAPEX) 0.125 mg tablet Take 0.125 mg by mouth at bedtime. Active nitrofurantoin (MACRODANTIN) 100 mg capsule Take 1 capsule (100 mg total) by mouth at bedtime. Active rosuvastatin (CRESTOR) 10 mg tabletIndications: Mixed hyperlipidemia Take 1 tablet (10 mg total) by mouth 1 (one) time each day. 90 each 1 025 2024 Active losartan (Cozaar) 25 mg tabletIndications: 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) Take 1 tablet (25 mg total) by mouth 1 (one) time each day. 90 each 1 025 2024 Active tirzepatide (Mounjaro) 5 mg/0.5 mL injectionIndicatio ns:Type 2 diabetes mellitus without complication, without long-term current use of insulin (CMS/HCC) Inject 0.5 mL (5 mg total) under the skin every 7 (seven) days. 2 mL 2 025 Active albuterol 2.5 mg /3 mL (0.083 %) nebulizer solution Take 3 mL (2.5 mg total) by nebulization every 4 (four) hours if needed for wheezing. 75 mL 3 025 Active omeprazole (PriLOSEC) [address] capsule TAKE 1 CAPSULE BY MOUTH EVERYDAY AT BEDTIME 90 capsule 025 Active FreeStyle Lancets 28 gauge lancets CHECK BLOOD SUGARS UPTO 2 TIMES A DAY 100 each 1 025 Active albuterol HFA (Ventolin HFA) 90 mcg/actuation inhalerIndications :Mild intermittent reactive airway disease without complication Inhale 2 puffs by mouth every 4 (four) hours if needed for wheezing. 6.7 g 3 025 Active albuterol HFA (Ventolin HFA) 90 mcg/actuation inhaler Inhale 2 Puffs into the lungs 4 times daily as needed for Cough, Wheezing or Shortness of Breath (or chest tightness). 024 2024 Discontinued(R eorder) omeprazole (PriLOSEC) [address] capsule TAKE 1 CAPSULE BY MOUTH EVERYDAY AT BEDTIME 90 capsule 2024 Discontinued Active Problems Problem Noted Date Diagnosed [...] Continue vaginal estradiol, aygestin daily prescribed through [facility] Restless leg syndrome 01/03/2024 Assessment & Plan (07/17/2024 8:44 PM EST): Continue Pramipexole nightly Achilles tendon tear, left, initial encounter Assessment & Plan (07/17/2024 8:44 PM EST): She has a hx of left ankle surgery done around November with Dr. Rosario at [facility]. Unfortunately I do not have any records for review. Offered XRAY but she will prefer to follow up with [facility] and will call to schedule an [...] (obstructive sleep apnea) 06/02/2015 Overview (05/10/2024): Dx [facility] - followup there Assessment & Plan (07/17/2024 8:44 PM EST): Continue CPAP nightly Excessive sweating 02/23/2015 Multiple sclerosis, relapsing-remitting 02/24/20 15 Overview (05/10/2024): Abnormalities on MRI 2013 (progression from previous). LP done in 06/2014 at [facility] - positive for MS. Sees Dr. Nona Armstrong at [facility]. Did not tolerate Copaxone and Rebif. On Tecfidera Assessment & Plan (07/17/2024 8:44 PM EST): Continue follow up with [facility] neurology. Continue Ocrevus every 6 months , baclofen 5mg BID Sleep disorder 05/30/2011 Fatty liver 08/12/2009 Overview (05/10/2024): biopsy proven 2004 biopsy proven 2004 NIKKIE (mycobacterium avium-intracellulare) 008 Overview (05/10/2024): 2006 [...] Care Team Description 08/27/2024 Telephone Adult Medicine [address] [phone] Maida Ann MD 08/20/2024 1:45 PM EST Office Visit Endocrinology [address] [phone] Yamil Toledo MD Type 2 diabetes mellitus without complication, without long-term current use of insulin ([facility]) (Primary Dx) 08/20/2024 Telephone Pulmonolgy - [facility] [address] [place] [phone] Nurys Arnold [place] prior authorization (albuterol) 08/19/2024 Nurse Triage Adult [address] [phone] Ashley Hernandez, RN 08/19/2024 Telephone Adult [address] [phone] Ashley Hernandez, RN 08/16/2024 Telephone Adult Medicine [address] [phone] Ashley Hernandez, RN 08/15/2024 7:30 AM EST Ancillary Procedure [facility] [address] [facility] [address] [place] [phone] Leg swelling 07/26/2024 Nurse Triage Adult [address] [phone] Maida Ann MD 07/26/2024 Telephone Adult [address] [phone] Ashley Hernandez RN 07/17/2024 5:00 PM EST Office Visit Adult [address] [phone] Maida Ann MD Type 2 diabetes mellitus with diabetic microalbuminuria, without long-term current use of insulin ([facility]) (Primary Dx); Morbid obesity with BMI of 45.0-49.9, adult ([facility]); Mild intermittent reactive airway disease without complication; DALE (obstructive sleep apnea); Multiple sclerosis, relapsing-remitting ([facility]); Restless leg syndrome; Gastroesophageal reflux disease without esophagitis; Anxiety and depression; Subclinical hypothyroidism; Vitamin D insufficiency; Leg swelling; Achilles tendon tear, left, initial encounter; Chronic pain of left ankle; Recurrent UTI; Surgical menopause 06/28/2024 Telephone Adult [address] [phone] Maida Ann MD Forms/questionnaires 06/28/[address] [phone] Valerie Ponce [place] DME request (Order for CPAP supplies sent to [facility] [employer]. Fax confirmation received. ) 06/21/2024 8:50 AM EST Office Visit Pulmon[address] [address] Milady Hogan NP DALE (obstructive sleep apnea) (Primary Dx); Restless leg syndrome; Mild intermittent reactive airway disease without complication; NIKKIE (mycobacterium avium-intracellulare ) ([facility]); Gastroesophageal reflux disease without esophagitis from Last 3 Months Immunizations Name Administration Dates Next Due H1N1 Inj Preservative Free 07/17/2009 Influenza Quadravalent, MDCK , 0.5ml, with preservative (Flucelvax) 6mo and older 05/15/2023,05/18/2022,07/15/2021,04/08,05/08/2019,03/24/2018,04/06/2017 Influenza trivalent, 0.5mL, preservative free (Fluarix; FluLaval; Fluzone) ages 6mo and older (Afluria) 3 years and older 05/04/2016,05/04/2013,06/04/2012,05/12,04/30/2010,07/17/2009,04/29/2008 ,05/25/2007 Influenza, Unspecified 05/08/2019,03/24/2018,11/2015 Pfizer SARS-CoV-2 COVID-19, mRNA, LNP-S, preservative free 05/24/2021,12/08/2020 [...] HISTORICAL TUBAL LIGATION BREAST REDUCTION 1999 PROCEDURE: CO BREAST REDUCTION OTHER SURGICAL HISTORY 2021 PROCEDURE: HISTORICAL PELVISCOPY; COMMENT: Lap right oophorectomy for ovarian cyst at [facility] HYSTERECTOMY 01/17/2024 N/A PROCEDURE: HISTORICAL HYSTERECTOMY; COMMENT: TLH, LSO Medical History Medical History Date Comments 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); COMMENT: treated 2007 - Dr Serrano Other emphysema ([facility]/HCC) 03/29/2007 DX:Oth er emphysema ([facility]); COMMENT: h/o lung nodules- was seeing Dr [...] on file Sexual Orientation Not on file Obstetrics History Last Filed [...] Description 12/04/2024 2:00 PM EDT Consult [place] [facility] [place] [address] [place] [address] Sandra Monk MD [address] [facility] [address] [place] [address] 12/19/2024 10:30 AM EDT Office Visit Pulmonolgy - [facility] 175 [facility] [address] [place] [phone] Milady Hogan NP 175 [facility] [address] [place] [address] Health Maintenance Due Date Last Done Comments [...] patient's age to complete this topic Meningococcal B Vacine Aged Out No lo nger eligible based on patient's age to complete [...] microalbuminuria, without long-term current use of insulin ([facility]) HEMOGLOBIN A1C Routine 08/13/2024 11:59 AM EST Type 2 diabetes mellitus with diabetic microalbuminuria, without long-term current use of insulin ([facility]) LIPID PANEL WITH REFLEX TO DIRECT LDL Routine 08/13/2024 11:59 AM EST Type 2 diabetes mellitus with diabetic microalbuminuria, without long-term current use of insulin ([facility]) THYROID STIMULATING HORMONE WITH REFLEX TO FREE T4 AND FREE T3 Routine 08/13/2024 11:59 AM EST Subclinical hypothyroidism VITAMIN D 25 HYDROXY Routine 08/13/2024 11:59 AM EST Vitamin D insufficiency CO SLEEP STUDY ATTENDED 07/19/2024 DEPRESSION SCREENING Routine [...] performed with the patient in reverse trendelenburg. Ob/Gyn Details A aldrich scale, color and doppler analysis ultrasound was performed. During the study longitudinal and transverse views were obtained. Pulsed wave doppler was performed. Maida Ann MD CV VASCULAR PROC EDURES Final Result * (ABNORMAL) Microalbumin creatinine urine ratio (08/13/2024 1:30 PM EST) Creatinine, Urine 224.0 mg/dL LAB CHEMISTRY METHOD 08/13/2024 10:00 PM EST [facility] Microalb, Ur 38.7(H) 0.0 - 29.0 mg/L LAB CHEMISTRY METHOD 08/13/2024 10:00 PM EST [facility] Microalb/Crea t Ratio 17 <30 mg/g creat LAB CHEMISTRY METHOD 08/13/2024 10:00 PM EST [facility] Urine Urine specimen obtained by clean catch procedure / Unknown Non-blood Collection / Unknown 08/13/2024 1:30 PM EST 08/13/2024 1:30 PM EST Maida Ann MD LAB URINE ORDERA BLES Final Result [facility] [address] [place] [address], [place] [phone] * Thyroid stimulating hormone with reflex to free t4 and free t3 (08/13/2024 11:59 AM EST) TSH 2.95 0.40 - 4.00 mcIU/mL LAB CHEMISTRY METHOD 08/13/2024 4:[address] [facility] Blood Venous blood specimen / Unknown Venipuncture / Unknown 08/13/2024 11:59 AM EST 08/13/2024 11:59 AM EST Maida Ann MD LAB BLOOD ORDERA BLES Final Result [facility] [address] [place] [address], [place] [phone] * (ABNORMAL) Lipid panel with reflex to direct LDL (08/13/2024 11:59 AM EST) Cholesterol 192 0 - 200 mg/dL LAB CHEMISTRY METHOD 08/13/2024 4:[address] [facility] Triglycerides 75 0 - 150 mg/dL LAB CHEMISTRY METHOD 08/13/2024 4:[address] [facility] HDL 40 >=40 mg/dL LAB CHEMISTRY METHOD 08/13/2024 4:[address] [facility] LDL Calculated 137(H) 0 - 100 mg/dL LAB CHEMISTRY METHOD 08/13/2024 4:[address] [facility] VLDL Cholesterol Orestes 15 mg/dL LAB CHEMISTRY METHOD 08/13/2024 4:[address] [facility] Non HDL Chol. (LDL+VLDL) 152(H) <145 mg/dL LAB CHEMISTRY METHOD 08/13/2024 4:[address] [facility] Chol/HDL Ratio 4.8(H) 0.0 - 4.4 LAB CHEMISTRY METHOD 08/13/2024 4:[address] [facility] Blood Venous blood specimen / Unknown Venipuncture / Unknown 08/13/2024 11:59 AM EST 08/13/2024 11:59 AM EST us Maida Ann MD LAB BLOOD ORDERA BLES Final Result Performing Organization Address [facility]/ZIP Co de Phone Number [facility] [address] [place] [address], [place] [phone] * Vitamin D 25 hydroxy (08/13/2024 11:59 AM EST) Vit D, 25-Hydroxy 68.8 30.0 - 80.0 ng/mL LAB CHEMISTRY METHOD 08/13/2024 4:58 PM EST [facility] Blood Venous blood specimen / Unknown Venipuncture / Unknown 08/13/2024 11:59 AM EST 08/13/2024 11:59 AM EST Maida Ann MD LAB BLOOD ORDERA BLES Final Result Performing Organization Address [facility] Co de Phone Number [facility] [address] [place] [address], [place] [phone] * (ABNORMAL) Hemoglobin A1c (08/13/2024 11:59 AM EST) [facility] Hemoglobin A1C 6.8(H) <6.5 % LAB CHEMISTRY METHOD 08/13/2024 9:31 PM EST [facility] Mean Bld Glu Estim. 148 mg/dL LAB CHEMISTRY METHOD 08/13/2024 9:31 PM EST [facility] Blood Venous blood specimen / Unknown Venipuncture / Unknown 08/13/2024 11:59 AM EST 08/13/2024 11:59 AM EST Maida Ann MD LAB BLOOD ORDERA BLES Final Result Performing Organization Address [facility]/ZIP Co de Phone Number [facility] [address] [place] [address], [place] [phone] * General sleep study (07/19/2024) Provider Kajal [facility] SLEEP CENTER ORDERABLES Final Result * Depression Screening (01/03/2024) [facility] Depression Screening abstracted Historical Provider HEALTH MAINTENANCE Final Result * Annual BMP Blood Test (12/21/2023) [facility] Annual BMP Blood Test abstracted Result [facility] Provider HEALTH MAINTENANCE Final Result * Diabetes Foot Exam (06/12/2023) [facility] Diabetes: Annual Foot Exam abstracted Historical Provider HEALTH MAINTENANCE Final Result * Diabetes Eye Exam (02/21/2023) [facility] Diabetes: Annual Retina Eye Exam abstracted Result [facility] Provider HEALTH MAINTENANCE Final Result * Cervical Cancer Screening: HPV (02/21/2020) [facility] Cervical Cancer Screening: HPV abstracted, negative Result [facility] Provider HEALTH MAINTENANCE Final Result * HIV Screening (02/21/2020) [facility] HIV Screening abstracted Result [facility] Provider HEALTH MAINTENANCE Final Result * Hepatitis C Screening (02/21/2020) [facility] Hepatitis C Screening abstracted Result [facility] Provider HEALTH MAINTENANCE Final Result from Last 3 Months or Most Recently Relevant to Health Maintenance Insurance [facility] [place] Care Teams Tax Compliance Officer Relationship Specialty Start Date End Date Maida Ann MD [address] [place] [address] PCP - General Internal Medicine 03/09/22
--- OUTSIDE RECORDS SUMMARY | 2024-09-21 09:45 | XMS_ITS | Encounter Summary ---
Author Organization [facility] Address [address] [place] [address] Care Team Providers Care Cook Fast Food Name Role Phone Stephany Elise MD Primary Care Provider James Bear Primary Care Provider Stephany De La Torre MD Primary Care Provider Kamlesh Sanchez MD Primary Care Provider Jorden Padgett Primary Care Provider [phone] Maida Ann MD Primary Care Provider + Encounter Details Date Type Department Care Team Description 11/25/2015 Pt. Referral Request [address] [address] Md Zach Social History Tobacco Use Types [...] documented as of this encounter Care Teams Cook Fast Food Relationship Specialty Start Date End Date Stephany Elise MD PCP - General 03/31/11 04/17/18 James Gomez PCP - General Internal Medicine 04/18/18 09/10/18 Stephany Elise MD PCP - General Internal Medicine 09/11/18 03/11/21 Kamlesh Patel MD PCP - General Internal Medicine 03/12/21 03/07/22 Jorden Kramer [address] [place] [address] PCP - General Internal Medicine 03/08/22 03/08/22 Maida Ann MD [address] [place] [address] PCP - General Internal Medicine 03/09/22 documented as of this encounter
--- OUTSIDE RECORDS SUMMARY | 2024-09-21 09:45 | XMS_ITS | Encounter Summary ---
Author Organization [facility] Address [address] [place] [address] Care Team Providers Care French Teacher Name Role Phone Stephany Elise MD Primary Care Provider Kamlesh Sanchez MD Primary Care Provider Jorden Padgett Primary Care Provider [phone] Maida Ann MD Primary Care Provider + Encounter Details Date Type Department Care Team Description 02/02/2021 Pt. Non Urgent Medic al Question Physiatry - [address] [address] Sonido Singh PA-C Social History Tobacco Use Types Packs/Day [...] encounter Miscellaneous Notes * Telephone Encounter - Josselin Dai - 02/02/2021 4:28 PM EDTFrom: Shanice Ponce To: Agnieszka Singh Sent: 02/02/2021 4:18 PM EDT Subject: Appointment I need to make an appointment documented in this encounter Plan of Treatment Not on file documented as of this encounter Visit Diagnoses Not on filedocumented in this encounter Additional Health Concerns Infection Onset Date Last Indicated Resolved Time COVID-19 Comment:Sx's started 05/23/22 tested + 05/25/22 05/25/2022 06/08/2022 10/09/2023 9:12 AM E DT documented as of this encounter Care Teams French Teacher Relationship Specialty Start Date End Date Stephany Elise MD PCP - General Internal Medicine 09/11/18 03/11/21 Kamlesh Patel MD PCP - General Internal Medicine 03/12/21 03/07/22 Jorden Kramer [address] [place] [id number] PCP - General Internal Medicine 03/08/22 03/08/22 Madia Ann MD [address] [place] [address] PCP - General Internal Medicine 03/09/22 documented as of this encounter
--- OUTSIDE RECORDS SUMMARY | 2024-09-21 09:46 | XMS_ITS | Encounter Summary ---
Author Organization [facility] Address [address] [facility] [place] [address] Care Team Providers Care Mannequin Maker Name Role Phone Maida Ann MD Primary Care Provider + Encounter Details Date Type Department Care Team Description 06/22/2023 Telephone Pulmonology - [place] 175 [facility] [address] [place] [address] Milady Hogan, SPIN INSTRUCTOR 175 [facility] [address] [place] [address] Social History Tobacco Use Types Packs/Day Years [...] AM EST documented as of this encounter Plan of Treatment Not on file documented as of this encounter Visit Diagnoses Not on filedocumented in this encounter Additional Health Concerns Infection Onset Date Last Indicated Resolved Time COVID-19 Comment:Sx's started 05/23/22 tested + 05/25/22 05/25/2022 06/08/2022 10/09/2023 9:12 AM E DT documented as of this encounter Care Teams Mannequin Maker Relationship Specialty Start Date End Date Maida Ann MD [address] [place] [phone] PCP - General Internal Medicine 03/09/22 documented as of this encounter
--- OUTSIDE RECORDS SUMMARY | 2024-09-21 09:46 | XMS_ITS | Encounter Summary ---
Author Organization [facility] Address [address] [place] [address] Care Team Providers Care Kindergarten Teacher Name Role Phone Maida Ann MD Primary Care Provider + Reason for Visit * Reason Onset Date Comments Surgery (Schedule) 10/16/2023 Encounter Details Date Type Department Care Team Description 10/16/2023 Telephone OBGYN - [facility] [address] [place] [address] Carisa Chaney MD [address] [place] [id number] Surgery (Schedule) Social History Tobacco Use Types [...] cystoscopy has been scheduled on 01/17/24 at [facility] with De. Chaney. Patient has been notified [...] DOS 01/17/24, pt accepted. Will forward to [facility]. DA * Telephone Encounter - Karrie Pérez C.M.A. - 10/16/2023 11:12 AM EDT Left pt message to return call to offer DOS. * Telephone Encounter - Karrie Pérez C.M.A. - 10/16/2023 9:29 AM EDT Carisa Chaney MD 7 minutes ago (9:21 AM) EE SHIPPING SUPERVISOR SURGICAL BOOKING WORKSHEET 10/16/2023 ? Patient's Name: Shanice Ponce : 1980 Payor information: Payor: [facility] / Plan: [facility] [employer] / Product Type: HMO [id number] ?? Allergies: Allergies Allergen Reactions ??? Copaxone [Glatiramer-Mannitol] Hives/Urticaria ?? LMP: No LMP recorded. (Menstrual status: IUD-uncertain date). Diagnosis: 1. Abnormal uterine bleeding (AUB) 2. Pelvic pain ?? Surgery Procedure Planned: Robotic hyst, BS, cysto Special Instructions/Equipment needed: Mirna Type of Anesthesia: GETA Stay: Daystay Location:[facility]rum Project Manager Needed? YES Time Needed: 2 hr Essential: YES Urgency: elective Medicaid Sterilization (within 30 days - 180 days) and/or Medicare HI-1 form signed, if needed? N\ADate signed? NA already ahd TL Medical Clearance? YES Pre Op FUEL STORAGE TECHNICIAN visit: YES Pap Needed at Pre Op Visit? NO No orders of the defined types were placed in this encounter. ?? CARISA CHANEY MD ?? documented in this encounter Plan of Treatment Scheduled Orders Name Type Priority Associated Diagnoses Orde r Schedule MT ECG ROUTINE ECG W/LEAST 12 LDS W/I&R Cardiology Routine Preoperative examination 1 Occurrences starting 10/26/2023 until 10/25/2024 documented as of this encounter Results * (ABNORMAL) CHG BLOOD COUNT COMPLETE AUTO&AUTO DIFRNTL WBC (12/21/2023 2:53 PM EDT) [facility] WHITE BLOOD COUNT 10.3 4.8 - 10.8 x10-3/uL 12/21/2023 6:21 PM EDT [facility] RED BLOOD COUNT 4.4 3.8 - 4.8 x10-6/uL 12/21/2023 6:21 PM EDT [facility] Hemoglobin 12.7 11.5 - 16.0 g/dL 12/21/2023 6:21 PM EDT [facility] Hematocrit 39.5 35 - 47 % 12/21/2023 6:21 PM EDT [facility] MEAN CORPUSCULAR VOLUME 90.0 79 - 98 fL 12/21/2023 6:21 PM EDT [facility] CORPUSCULAR HEMOGLOBIN 28.9 27 - 32 pg 12/21/2023 6:21 PM EDT [facility] MEAN CORPUSCULAR HGB CONC 32.2 32 - 37 g/dL 12/21/2023 6:21 PM EDT [facility] RED CELL DISTRIBUTION WIDTH 13.2 11 - 15 % 12/21/2023 6:21 PM EDT [facility] PLT COUNT 283 130 - 400 x10-3/uL 12/21/2023 6:21 PM EDT [facility] MEAN PLATELET VOLUME 10.2 7 - 11 fL 12/21/2023 6:21 PM EDT [facility] NRBC % AUTO 0.0 <1 % 12/21/2023 6:21 PM EDT [facility] NEUTROPHILS % 67.8 % 12/21/2023 6:21 PM EDT [facility] LYMPH % 22.0 % 12/21/2023 6:21 PM EDT [facility] MONO % 6.5 % 12/21/2023 6:21 PM [...] 0.03 x10-3/uL 12/21/2023 6:21 PM EDT [facility] 12/21/2023 2:53 PM EDT 12/21/2023 2:54 PM EDT Narrative [facility] - 12/21/2023 6:21 PM EDT Release to patient->Immediate Carisa Chaney MD LAB [facility] * (ABNORMAL) CHG BASIC METABOLIC PANEL CALCIUM TOTAL (12/21/2023 2:53 PM EDT) [facility] GLUCOSE 125(H) 70 - 100 mg/dL 12/21/2023 [...] (HCC) documented in this encounter Care Teams Kindergarten Teacher Relationship Specialty Start Date End Date Maida Ann MD [address] [place] [address] PCP - General Internal Medicine 03/09/22 documented as of this encounter
--- OUTSIDE RECORDS SUMMARY | 2024-09-21 09:46 | XMS_ITS | Encounter Summary ---
Author Organization [facility] Address [address] [place] [address] Care Team Providers Care Clinical Fellow Name Role Phone Maida Ann MD Primary Care Provider + Reason for Visit * Reason Comments E-prescribe Rx Request Encounter Details Date Type Department Care Team Description 05/14/2023 Refill Adult Medicine [facility] [address] [place] [address] Maida Ann MD [address] [place] [address] [phone] E-prescribe Rx Request Social History Tobacco Use [...] suspected to have Coronavirus/COVID-19? No / Unsure 05/01/2023 12:20 PM EDT documented as of this encounter Miscellaneous Notes * Telephone Encounter - Tonya Jain M.A. - 06/01/2023 9:07 AM EDT [place], This was filled by you on 04/18/23, Transmission to pharmacy failed (04/18/2023 10:36 AM EDT) Please re-sign. * Telephone Encounter - James Lemos - 05/31/2023 9:03 AM EDT Patient would like script to be: E-PRESCRIBED/FAXED TO PHARMACY WHEN WAS THE PATIENT'S LAST APPOINTMENT IN ADULT MEDICINE? 05/01/2023 WHEN WAS THE LAST TIME THE PATIENT SAW THEIR PCP? 02/09/2023 Does patient have an upcoming appointment? Yes 06/05/2023 (THE MEDICATION REQUESTED IS ON THE MED [...] N/A Patients current insurance carrier is: Payor: [facility] FFS / Plan: [facility] / Product Type: MEDICAID RISK documented in this encounter Plan of Treatment Not on file documented as of this encounter Visit Diagnoses Not on filedocumented in this encounter Additional Health Concerns Infection Onset Date Last Indicated Resolved Time COVID-19 Comment:Sx's started 05/23/22 tested + 05/25/22 05/25/2022 06/08/2022 10/09/2023 9:12 AM E DT documented as of this encounter Care Teams Clinical Fellow Relationship Specialty Start Date End Date Maida Ann MD [address] [place] [address] PCP - General Internal Medicine 03/09/22 documented as of this encounter
--- OUTSIDE RECORDS SUMMARY | 2024-09-21 09:46 | XMS_ITS | Encounter Summary ---
Author Organization [facility] Address [address] [facility] [place] [address] Care Team Providers Care Relationship Counselor Name Role Phone Maida Ann MD Primary Care Provider + Encounter Details Date Type Department Care Team Description 08/24/2023 Tack Maker Report Medical Records [address] [place] [address] Humble Rosario MD Social History Tobacco Use [...] documented as of this encounter Care Teams Relationship Counselor Relationship Specialty Start Date End Date Maida Ann MD [address] [place] [address] PCP - General Internal Medicine 03/09/22 documented as of this encounter
--- OUTSIDE RECORDS SUMMARY | 2024-09-21 09:46 | XMS_ITS | Encounter Summary ---
Author Organization [facility] Address [address] [place] [address] Care Team Providers Care Mathematical Sciences Professor Name Role Phone Maida Ann MD Primary Care Provider + Encounter Details Date Type Department Care Team Description 03/24/2023 Parts Inspector Report Medical Records [address] [place] [address] [facility] Social History Tobacco Use Types Packs/Day [...] documented as of this encounter Care Teams Mathematical Sciences Professor Relationship Specialty Start Date End Date Maida Ann MD [address] [place] [address] PCP - General Internal Medicine 03/09/22 documented as of this encounter
--- OUTSIDE RECORDS SUMMARY | 2024-09-21 09:46 | XMS_ITS | Encounter Summary ---
Author Organization [facility] Address [address] [place] [address] Care Team Providers Care Patent Counsel Name Role Phone Maida Ann MD Primary Care Provider + Encounter Details Date Type Department Care Team Description 06/16/2023 Telephone [facility] - [employer] [address] [place], [place] [phone] Jesus Jones, Social History Tobacco Use Types [...] Telephone Encounter - Paige Garcia M.A. - 06/16/2023 4:20 PM EST Left message for patient to return call back -KM Aquto message sent as [employer] -KM * Telephone Encounter - Paige Garcia M.A. - 06/16/2023 4:20 PM EST ----- Message from Jesus Jones DO sent at 06/16/2023 3:07 PM EST ----- Please let the patient know that her ultrasound shows the IUD is in appropriate position. Irregularbleeding with the IUD in place is a common side effect - not everybody will have no bleeding with the IUD in place and every IUD is different. On the left side the ultrasound shows either a few small cyst vs. A dilated fallopian tube. It would be reasonable to repeat the ultrasound in 6-8 weeks to monitor to ensure the cysts are not enlarging. If she continues to have pain she should follow-up with an MD in the office. Thank you documented in this encounter Plan of Treatment Not on file documented as of this encounter Visit Diagnoses Not on filedocumented in this encounter Additional Health Concerns Infection Onset Date Last Indicated Resolved Time COVID-19 Comment:Sx's started 05/23/22 tested + 05/25/22 05/25/2022 06/08/2022 10/09/2023 9:12 AM E DT documented as of this encounter Care Teams Patent Counsel Relationship Specialty Start Date End Date Maida Ann MD [address] [place] [address] PCP - General Internal Medicine 03/09/22 documented as of this encounter
--- OUTSIDE RECORDS SUMMARY | 2024-09-21 09:46 | XMS_ITS | Encounter Summary ---
Author Organization [facility] Address [address] [place] [address] Care Team Providers Care Monitor Car Operator Name Role Phone Maida Ann MD Primary Care Provider + Encounter Details Date Type Department Care Team Description 02/06/2024 Pt. Non Urgent Medical Question OBGYN - [place] [address] [place] [address] Carisa Napier MD [address] [place] [address] Social History Tobacco Use Types Packs/Day Years [...] on filedocumented in this encounter Care Teams Monitor Car Operator Relationship Specialty Start Date End Date Maida Ann MD [address] [place] [address] PCP - General Internal Medicine 03/09/22 documented as of this encounter
--- OUTSIDE RECORDS SUMMARY | 2024-09-21 09:46 | XMS_ITS | Encounter Summary ---
Author Organization [facility] Address [address] [place] [address] Care Team Providers Care Preschool Substitute Teacher Name Role Phone Maida Ann MD Primary Care Provider + Encounter Details Date Type Department Care Team Description 11/22/2023 Pt. Non Urgent Medical Question OBGYN - [place] [address] [place] [address] Carisa Napier MD [address] [place] [address] Social History Tobacco Use Types Packs/Day Years [...] Telephone Encounter - Phyllis Jiménez R.N. - 11/22/2023 9:27 AM EDTFrom: Shanice Pocne To: Tom Napier Sent: 11/22/2023 9:10 AM EDT Subject: Surgery How long will I be out of work? 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
--- OUTSIDE RECORDS SUMMARY | 2024-09-21 09:46 | XMS_ITS | Clinical Summary ---
Author Organization [facility] Address [address] [facility] [place] [address] Care Team Providers Care Ovens Supervisor Name Role Phone Maida Ann MD [...] tions:Morbid obesity with BMI of 45.0-49.9, adult ([facility]) Inject 0.25 mg into the skin once [...] complication, without long-term current use of insulin ([facility]) Check sugars upto 2 times a day 1 Kit 0 06/01/2024 5 Active FreeStyle Lancets MiscIndications:Typ e 2 diabetes mellitus without complication, without long-term current use of insulin ([facility]) Check sugars upto two times a day [...] DALE (obstructive sleep apnea) 06/02/2015 Overview: Dx [facility] - followup there Excessive sweating 02/23/2015 Multiple sclerosis, relapsing-remitting 02/23/2015 Overview: Abnormalities on MRI 2013 (progression from previous). LP done in 06/2014 at [facility] - positive for MS. Sees Dr. Nona Armstrong at [facility]. Did not tolerate Copaxone and Rebif. On Tecfidera Sleep disorder 05/30/2011 anti-SSB positive 03/15/2011 Overview: At [facility] 03/10. SS-A negative. RACHEL 1:100 Fatty liver [...] Adjustment disorder 12/29/2010 10/25/2022 Depression 05/24/2010 12/29/2010 Immunizations Name Administration Dates Next Due COVID-19 [...] 05/18/2022, Additional history exists DIABETES/HEART DISEASE: ISAURO CAMI CHOLESTEROL (LDL) 05/01/2024 05/01/2023, 06/08/2022, 04/13/2021, Additional [...] HIG H RISK PATIENTS (#2) 2047 10/10/2013 Care Teams Ovens Supervisor Relationship Specialty Start Date End Date Maida Ann MD [address] [place] [phone] PCP - General Internal Medicine 03/09/22
--- OUTSIDE RECORDS SUMMARY | 2024-09-21 09:46 | XMS_ITS | Encounter Summary ---
Author Organization [facility] Address [address] [place] [address] Care Team Providers Care Land Inspector Name Role Phone Maida Ann MD Primary Care Provider + Encounter Details Date Type Department Care Team Description 01/17/2024 Hospital Medical Records [address] [place] [address] [facility] Social History Tobacco Use Types Packs/Day Years [...] on filedocumented in this encounter Care Teams Land Inspector Relationship Specialty Start Date End Date Maida Ann MD [address] [place] [phone] PCP - General Internal Medicine 03/09/22 documented as of this encounter
--- OUTSIDE RECORDS SUMMARY | 2024-09-21 09:46 | XMS_ITS | Encounter Summary ---
Author Organization [facility] Address [address] [place] [address] Care Team Providers Care Opener Name Role Phone Maida Ann MD Primary Care Provider + Encounter Details Date Type Department Care Team Description 04/18/2023 Telephone Adult Medicine [facility] [address] [place] [address] Maida Ann MD [address] [place] [address] Social History Tobacco Use Types Packs/Day Years [...] documented as of this encounter Care Teams Opener Relationship Specialty Start Date End Date Maida Ann MD [address] [place] [address] PCP - General Internal Medicine 03/09/22 documented as of this encounter
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
--- OUTSIDE RECORDS SUMMARY | 2024-09-21 09:46 | XMS_ITS | Encounter Summary ---
Author Organization [facility] Address [address] [facility] [place] [address] Care Team Providers Care Community Service Organization Director Name Role Phone Maida Ann MD Primary Care Provider + Reason for Visit * Reason Comments E-prescribe Rx Request Encounter Details Date Type Department Care Team Description 07/03/2023 Refill Pulmonology - [place] [address] [address] Milady Hogan, VENDING ROUTE DRIVER [address] [address] E-prescribe Rx Request Social History Tobacco Use [...] * Telephone Encounter - Inez Mujica - 07/03/2023 4:16 PM EST NOV 09/18/23 JOHN 06/05/24 documented in this encounter Plan of Treatment Not on file documented as of this encounter Visit Diagnoses Diagnosis Mild intermittent asthma without complication Unspecified asthma documented in this encounter Additional Health Concerns Infection Onset Date Last Indicated Resolved Time COVID-19 Comment:Sx's started 05/23/22 tested + 05/25/22 05/25/2022 06/08/2022 10/09/2023 9:12 AM E DT documented as of this encounter Care Teams Community Service Organization Director Relationship Specialty Start Date End Date Maida Ann MD [address] [place] [address] PCP - General Internal Medicine 03/09/22 documented as of this encounter
--- OUTSIDE RECORDS SUMMARY | 2024-09-21 09:46 | XMS_ITS | Data Portability ---
Author Organization [place] [facility] Address [address] [address] Care Team Providers Care Fuel Quality Tech Name Role Phone ERI MONTEIRO Primary Care Provider [phone] Assessment Encounter Date Assessment Date Assessment LastModified [...] Recorded Time Feeling of lump in throat 807231904 Active 2023 RADHA SHIELDS MD [address] [place] [address], [place], [address], [place] [facility] 4 11:36:54 Chronic tonsillitis 72778328 Active 2023 RADHA SHIELDS MD 100 [facility] 100, [place], [address], [place] [facility] 4 11:37:01 Obstructive sleep apnea syndrome 72072784 Active 2023 RADHA SHIELDS MD 100 [facility] 100, [place], [address], [place] [facility] 11:39:13 Problem Notes None recorded. Procedures Surgical History Date Name Laterality Status Provider Name and Address Organization Details Recorded Time total abdominal hysterectomy with bilateral salpingo-oophorec rashard completed RADHA PIERSON MD [address] [place] [address], [place], [address], [facility] - [facility] 05/16/2024 11:38:56 Imaging Results None recorded. Procedure [...] SNOMED-CT Code Diagnosis ICD10 Code Diagnosis Note [id number] RADHA ARCEO MD [facility] [address] [address] 05/16/2024 11:02:38 05/16/2024 11:44:35 Feeling of lump in throat 127514928 R09.89 Chronic tonsillitis 9097 9004 J35.01 biotene and Oral Biotic Obstructiv e sleep apnea syndrome 94301097 G47.33 continue CPAP Health Concerns Section Related Observation LastModified by Organization Detai ls LastModified Time None Recorded Concern Status LastModified by Organization Details LastModified Time None Recorded Advance Directives Directive None Recorded Payers Encounter Date Sequence Insurance Name Policy Number Policy Kelley Covered Member ID Kelley Member ID Guarantor Name 05/16/[address] [place] [address] [place] [place] [id number] Shanice Ponce [id number] Shanice Ponce Notes Date Note Type Note [...] that. DALE with CPAP RADHA PIERSON MD [address] [place] [address], [place], [address], [facility] - [facility] 05/16/2024 12:35:03 OBGyn Episode No OBEpisode recorded.
--- OUTSIDE RECORDS SUMMARY | 2024-09-21 09:46 | XMS_ITS | Encounter Summary ---
Author Organization [facility] Address [address] [place] [address] Care Team Providers Care Groundwater Monitoring Technician Name Role Phone Maida Ann MD Primary Care Provider + Encounter Details Date Type Department Care Team Description 02/02/2024 Pt. Non Urgent Medical Question OBGYN - [place] [address] [place] [address] Carisa Napier MD [address] [place] [address] Social History Tobacco Use Types Packs/Day Years [...] encounter Miscellaneous Notes * Telephone Encounter - Radha Platt R.N. - 02/02/2024 10:46 AM EDTFrom: Shanice Ponce To: Tom Napier Sent: 02/02/2024 8:14 AM EDT Subject: Bleeding I have no bled at all since the first day I woke up today with blood in my underwear not spotting actual bright red blood not a lot but definitely there and blood when I wiped. I am having more pain then before too documented in this encounter Plan of Treatment Not on file documented as of this encounter Visit Diagnoses Not on filedocumented in this encounter Care Teams Groundwater Monitoring Technician Relationship Specialty Start Date End Date Maida Ann MD [address] [place] [address] PCP - General Internal Medicine 03/09/22 documented as of this encounter
--- OUTSIDE RECORDS SUMMARY | 2024-09-21 09:46 | XMS_ITS | Encounter Summary ---
Author Organization [facility] Address [address] [place] [address] Care Team Providers Care Operations Leader Name Role Phone Maida Ann MD Primary Care Provider + Reason for Visit * Reason Onset Date Comments medication problems 04/03/2023 Vomiting 04/03/2023 Encounter Details Date Type Department Care Team Description 04/03/2023 Pt. Non Urgent Medical Question Adult Medicine [address] [address] Maida Ann MD [address] [place] [address] [phone] Social History Tobacco Use Types Packs/Day Years [...] documented as of this encounter Care Teams Operations Leader Relationship Specialty Start Date End Date Maida Ann MD [address] [place] [address] PCP - General Internal Medicine 03/09/22 documented as of this encounter
--- OUTSIDE RECORDS SUMMARY | 2024-09-21 09:46 | XMS_ITS | Encounter Summary ---
Author Organization [facility] Address [address] [facility] [place] [address] Care Team Providers Care On Site Coordinator Name Role Phone Maida Ann MD Primary Care Provider + Encounter Details Date Type Department Care Team Description 10/06/2023 Orders Only Medical Records [address] [place] [address] Jesus Jones, Social History Tobacco Use Types [...] Name Priority Date/Time Associated Diagnosis Comments OUTSIDE MAMMO Routine 09/26/2023 documented in this encounter Results * OUTSIDE MAMMO (09/26/2023) Jesus Jones DO RADIOLOGY documented in this encounter Visit Diagnoses Not on filedocumented in this encounter Additional Health Concerns Infection Onset Date Last Indicated Resolved Time COVID-19 Comment:Sx's started 05/23/22 tested + 05/25/22 05/25/2022 06/08/2022 10/09/2023 9:12 AM E DT documented as of this encounter Care Teams On Site Coordinator Relationship Specialty Start Date End Date Maida Ann MD [address] [place] [address] PCP - General Internal Medicine 03/09/22 documented as of this encounter
--- OUTSIDE RECORDS SUMMARY | 2024-09-21 09:46 | XMS_ITS | Encounter Summary ---
Author Organization [facility] Address [address] [place] [address] Care Team Providers Care Artillery Specialist Name Role Phone Maida Ann MD Primary Care Provider + Encounter Details Date Type Department Care Team Description 02/09/2024 Telephone [facility] - [facility] [address] [place] [address] Carisa Napier MD [address] [place] [address] Social History Tobacco Use Types Packs/Day Years [...] on filedocumented in this encounter Care Teams Artillery Specialist Relationship Specialty Start Date End Date Maida Ann MD [address] [place] [address] PCP - General Internal Medicine 03/09/22 documented as of this encounter
--- OUTSIDE RECORDS SUMMARY | 2024-09-21 09:46 | XMS_ITS | Encounter Summary ---
Author Organization [facility] Address [address] [place] [address] Care Team Providers Care Special Deputy Sheriff Name Role Phone Maida Ann MD Primary Care Provider + Encounter Details Date Type Department Care Team Description 04/01/2024 Pt. Non Urgent Medical Question OBGYN - [place] [address] [place] [address] Carisa Napier MD [address] [place] [address] Surgical menopause (Primary Dx) Social History Tobacco [...] cream I need a script sent to [facility] for the estrogen cream. I have [...] menopause documented in this encounter Care Teams Special Deputy Sheriff Relationship Specialty Start Date End Date Maida Ann MD [address] [place] [address] PCP - General Internal Medicine 03/09/22 documented as of this encounter
--- OUTSIDE RECORDS SUMMARY | 2024-09-21 09:47 | XMS_ITS | Encounter Summary ---
Author Organization [facility] Address [address] [place] [address] Care Team Providers Care Private Duty Rn Name Role Phone Maida Ann MD Primary Care Provider + Encounter Details Date Type Department Care Team Description 07/01/2022 Refill OBGYN - [place] [address] [place] [address] Jesus Jones, Social History Tobacco Use Types [...] documented as of this encounter Care Teams Private Duty Rn Relationship Specialty Start Date End Date Maida Ann MD [address] [place] [address] PCP - General Internal Medicine 03/09/22 documented as of this encounter
--- OUTSIDE RECORDS SUMMARY | 2024-09-21 09:47 | XMS_ITS | Encounter Summary ---
Author Organization [facility] Address [address] [place] [address] Care Team Providers Care Pocket And Pulley Machine Operator Name Role Phone Stephany Elise MD Primary Care Provider James Bear Primary Care Provider Stephany De La Torre MD Primary Care Provider Kamlesh Sanchez MD Primary Care Provider Jorden Padgett Primary Care Provider [phone] Maida Ann MD Primary Care Provider + Encounter Details Date Type Department Care Team Description 10/25/2016 Telephone Adult [address] [address] Stephany Elise MD Social History Tobacco Use [...] documented as of this encounter Care Teams Pocket And Pulley Machine Operator Relationship Specialty Start Date End Date Stephany Elise MD PCP - General 03/31/11 04/17/18 James Gomez PCP - General Internal Medicine 04/18/18 09/10/18 Stephany Elise MD PCP - General Internal Medicine 09/11/18 03/11/21 Kamlesh Patel MD PCP - General Internal Medicine 03/12/21 03/07/22 Jorden Kramer [address] [place] [address] PCP - General Internal Medicine 03/08/22 03/08/22 Maida Ann MD [address] [place] [address] PCP - General Internal Medicine 03/09/22 documented as of this encounter
--- OUTSIDE RECORDS SUMMARY | 2024-09-21 09:47 | XMS_ITS | Encounter Summary ---
Author Organization [facility] Address [address] [place] [address] Care Team Providers Care Bending Machine Set Up Operator Name Role Phone Stephany Elise MD Primary Care Provider Kamlesh Sanchez MD Primary Care Provider Jorden Padgett Primary Care Provider [phone] Maida Ann MD Primary Care Provider + Reason for Visit * Reason Comments E-prescribe Rx Request Encounter Details Date Type Department Care Team Description 07/17/2019 Refill Adult Medicine [address] [address] Stephany Elise MD E-prescribe Rx Request Social [...] encounter Miscellaneous Notes * Telephone Encounter - Brittney Wadsworth M.A. - 07/17/2019 11:48 AM EST Lab Results Component Value Date TSH 2.81 07/11/2019 * Telephone Encounter - Tomeka Mcdonald - 07/17/2019 11:25 AM EST Patient would like script to be: E-PRESCRIBED/FAXED TO PHARMACY WHEN WAS THE PATIENT'S LAST APPOINTMENT IN ADULT MEDICINE? 05/09/19 WHEN WAS THE LAST TIME THE PATIENT SAW THEIR PCP? 04/06/17 Does patient have an upcoming appointment? Yes [...] N/A Patients current insurance carrier is: Payor: [employer] FFS / Plan: [employer] / Product Type: MEDICAID RISK documented in this encounter Plan of Treatment Not on file documented as of this encounter Visit Diagnoses Not on filedocumented in this encounter Additional Health Concerns Infection Onset Date Last Indicated Resolved Time COVID-19 Comment:Sx's started 05/23/22 tested + 05/25/22 05/25/2022 06/08/2022 10/09/2023 9:12 AM E DT documented as of this encounter Care Teams Bending Machine Set Up Operator Relationship Specialty Start Date End Date Stephany Elise MD PCP - General Internal Medicine 09/11/18 03/11/21 Kamlesh Patel MD PCP - General Internal Medicine 03/12/21 03/07/22 Jorden Kramer [address] [place] [address] PCP - General Internal Medicine 03/08/22 03/08/22 Maida Ann MD [address] [place] [address] PCP - General Internal Medicine 03/09/22 documented as of this encounter
--- OUTSIDE RECORDS SUMMARY | 2024-09-21 09:47 | XMS_ITS | Encounter Summary ---
Author Organization [facility] Address [address] [place] [address] Care Team Providers Care Aircraft Landing Gear Inspector Name Role Phone Maida Ann MD Primary Care Provider + Encounter Details Date Type Department Care Team Description 12/02/2022 Release of Information Medical Records [address] [place] [id number] Abstract, Provider Social History Tobacco Use Types [...] documented as of this encounter Care Teams Aircraft Landing Gear Inspector Relationship Specialty Start Date End Date Maida Ann MD [address] [place] [id number] PCP - General Internal Medicine 03/09/22 documented as of this encounter
--- OUTSIDE RECORDS SUMMARY | 2024-09-21 09:47 | XMS_ITS | Encounter Summary ---
Author Organization [facility] Address [address] [place] [address] Care Team Providers Care Regional Safety Manager Name Role Phone Stephany Elise MD Primary Care Provider James Bear Primary Care Provider Stephany De La Torre MD Primary Care Provider Kamlesh Sanchez MD Primary Care Provider Jorden Padgett Primary Care Provider [phone] Maida Ann MD Primary Care Provider + Reason for Visit * Reason Comments E-prescribe Rx Request Encounter Details Date Type Department Care Team Description 12/05/2016 Refill Adult Medicine [address] [address] Enrique Sue PA-C [address] [place] [address] E-prescribe Rx Request Social History Tobacco Use [...] NO Patients current insurance carrier is: Payor: [employer] [facility] [facility] MEDICAID / Plan: [facility] MEDICAID HMO $0 [place] / Product Type: HMO [id number] documented in this encounter Plan of Treatment Not on file documented as of this encounter Visit Diagnoses Not on filedocumented in this encounter Additional Health Concerns Infection Onset Date Last Indicated Resolved Time COVID-19 Comment:Sx's started 05/23/22 tested + 05/25/22 05/25/2022 06/08/2022 10/09/2023 9:12 AM E DT documented as of this encounter Care Teams Regional Safety Manager Relationship Specialty Start Date End Date Stephany Elise MD PCP - General 03/31/11 04/17/18 James Gomez PCP - General Internal Medicine 04/18/18 09/10/18 Stephany Elise MD PCP - General Internal Medicine 09/11/18 03/11/21 Kamlesh Patel MD PCP - General Internal Medicine 03/12/21 03/07/22 Jorden Kramer [address] [place] [address] PCP - General Internal Medicine 03/08/22 03/08/22 Maida Ann MD [address] [place] [address] PCP - General Internal Medicine 03/09/22 documented as of this encounter
--- OUTSIDE RECORDS SUMMARY | 2024-09-21 09:47 | XMS_ITS | Encounter Summary ---
Author Organization [facility] Address [address] [place] [address] Care Team Providers Care Floor Manager Name Role Phone Maida Ann MD Primary Care Provider + Reason for Visit * Reason Comments E-prescribe Rx Request Encounter Details Date Type Department Care Team Description 03/25/2022 Refill Adult Medicine [facility] [address] [place] [address] Brenda Tejada PA-C [address] [place] [address] E-prescribe Rx Request Social History Tobacco Use [...] suspected to have Coronavirus/COVID-19? No / Unsure 03/08/2022 9:40 AM EDT documented as of this encounter Miscellaneous Notes * Telephone Encounter - Jesús Morales M.A. - 03/29/2022 3:40 PM EDT Last ov 03/08/2022 next ov 06/08/2022 Lab Results Component Value Date NA 138 04/13/2021 K 3.9 04/13/2021 CO2 29 04/13/2021 CL 104 04/13/2021 BUN 13 04/13/2021 CREAT 0.60 04/13/2021 GLU 88 04/13/2021 CA 8.8 04/13/2021 GFR > 60 04/13/2021 * Telephone Encounter - Tomeka Mcdonald - 03/29/2022 3:27 PM EDT Patient would like script to be: E-PRESCRIBED/FAXED TO PHARMACY WHEN WAS THE PATIENT'S LAST APPOINTMENT IN ADULT MEDICINE? 03/08/22 WHEN WAS THE LAST TIME THE PATIENT SAW THEIR PCP? Never seen pcp Does patient have an upcoming appointment? Yes 06/08/22 (THE MEDICATION REQUESTED IS ON THE MED [...] N/A Patients current insurance carrier is: Payor: [employer] [facility] FFS / Plan: [facility] [employer] / Product Type: MEDICAID RISK documented in this encounter Plan of Treatment Not on file documented as of this encounter Visit Diagnoses Not on filedocumented in this encounter Additional Health Concerns Infection Onset Date Last Indicated Resolved Time COVID-19 Comment:Sx's started 05/23/22 tested + 05/25/22 05/25/2022 06/08/2022 10/09/2023 9:12 AM E DT documented as of this encounter Care Teams Floor Manager Relationship Specialty Start Date End Date Maida Ann MD [address] [place] [address] PCP - General Internal Medicine 03/09/22 documented as of this encounter
--- OUTSIDE RECORDS SUMMARY | 2024-09-21 09:47 | XMS_ITS | Encounter Summary ---
Author Organization [facility] Address [address] [place] [address] Care Team Providers Care Manager Express Name Role Phone Maida Ann MD Primary Care Provider + Reason for Visit * Reason Onset Date Comments Prior Authorization 06/15/2022 Encounter Details Date Type Department Care Team Description 06/15/2022 Pt. Non Urgent Medical Question Adult Medicine [address] [address] Maida Ann MD [address] [place] [address] Social History Tobacco Use Types Packs/Day Years [...] encounter Miscellaneous Notes * Telephone Encounter - Isabel Deras M.A. - 06/17/2022 1:44 PM ESTFrom: Shanice Ponce To: Elke Ann Sent: 06/15/2022 9:26 PM EST Subject: Diabetes meds My insurance needs a prior authorization for the meds you prescribed I think documented in this encounter Plan of Treatment Not on file documented as of this encounter Visit Diagnoses Not on filedocumented in this encounter Additional Health Concerns Infection Onset Date Last Indicated Resolved Time COVID-19 Comment:Sx's started 05/23/22 tested + 05/25/22 05/25/2022 06/08/2022 10/09/2023 9:12 AM E DT documented as of this encounter Care Teams Manager Express Relationship Specialty Start Date End Date Maida Ann MD [address] [place] [address] PCP - General Internal Medicine 03/09/22 documented as of this encounter
--- OUTSIDE RECORDS SUMMARY | 2024-09-21 09:47 | XMS_ITS | Encounter Summary ---
Author Organization [facility] Address [address] [place] [address] Care Team Providers Care Corncob Pipe Manufacturing Supervisor Name Role Phone Stephany Elise MD Primary Care Provider James Bear Primary Care Provider Stephany De La Torre MD Primary Care Provider Kamlesh Sanchez MD Primary Care Provider Jorden Padgett Primary Care Provider [phone] Maida Ann MD Primary Care Provider + Encounter Details Date Type Department Care Team Description 09/19/2016 Pedicab Driver Report Medical Records [address] [place] [address] Isabel Steele NP Social History Tobacco Use [...] documented as of this encounter Care Teams Corncob Pipe Manufacturing Supervisor Relationship Specialty Start Date End Date Stephany Elise MD PCP - General 03/31/11 04/17/18 James Gomez PCP - General Internal Medicine 04/18/18 09/10/18 Stephany Elise MD PCP - General Internal Medicine 09/11/18 03/11/21 Kamlesh Patel MD PCP - General Internal Medicine 03/12/21 03/07/22 Jorden Kramer [address] [place] [id number] PCP - General Internal Medicine 03/08/22 03/08/22 Maida Ann MD [address] [place] [address] PCP - General Internal Medicine 03/09/22 documented as of this encounter
--- OUTSIDE RECORDS SUMMARY | 2024-09-21 09:47 | XMS_ITS | Encounter Summary ---
Author Organization [facility] Address [address] [place] [address] Care Team Providers Care Camp Cook Name Role Phone Maida Ann MD Primary Care Provider + Encounter Details Date Type Department Care Team Description 05/25/2022 Refill Adult Medicine [facility] [address] [place] [address] Brenda Tejada PA-C [address] [place] [address] Social History Tobacco Use Types Packs/Day Years [...] documented as of this encounter Care Teams Camp Cook Relationship Specialty Start Date End Date Maida Ann MD [address] [place] [address] PCP - General Internal Medicine 03/09/22 documented as of this encounter
--- OUTSIDE RECORDS SUMMARY | 2024-09-21 09:47 | XMS_ITS | Encounter Summary ---
Author Organization [facility] Address [address] [place] [address] Care Team Providers Care Adult Ministries Director Name Role Phone Maida Ann MD Primary Care Provider + Reason for Visit * Reason Comments E-prescribe Rx Request Encounter Details Date Type Department Care Team Description 08/26/2022 Refill Adult Medicine [address] [address] Chula Kyle PA-C E-prescribe Rx Request Social [...] documented as of this encounter Care Teams Adult Ministries Director Relationship Specialty Start Date End Date Maida Ann MD [address] [place] [address] PCP - General Internal Medicine 03/09/22 documented as of this encounter
--- OUTSIDE RECORDS SUMMARY | 2024-09-21 09:47 | XMS_ITS | Encounter Summary ---
Author Organization [facility] Address [address] [place] [address] Care Team Providers Care Walking Dragline Oiler Name Role Phone Kamlesh Patel MD Primary Care Provider Jorden Padgett Primary Care Provider [phone] Maida Ann MD Primary Care Provider + Reason for Visit * Reason Onset Date Comments Mychart Rx Refill 11/26/2021 Encounter Details Date Type Department Care Team Description 11/26/2021 Refill Adult Medicine [address] [address] Stephany Elise MD Mychart Rx Refill Social History Tobacco Use Types Packs/Day [...] encounter Miscellaneous Notes * Telephone Encounter - Sonia Bauman M.A. - 11/26/2021 8:43 AM EDT Lab Results Component Value Date NA 138 04/13/2021 K 3.9 04/13/2021 CO2 29 04/13/2021 CL 104 04/13/2021 BUN 13 04/13/2021 CREAT 0.60 04/13/2021 GLU 88 04/13/2021 CA 8.8 04/13/2021 GFR > 60 04/13/2021 JOHN was telemed w/Kayla Tejada 06/2021 JOHN w/PCP 09/2019 Next OV not on file Pt nds to schedule appt prior to further refills. Pt sent MyChart msg w/this info. documented in this encounter Plan of Treatment Not on file documented as of this encounter Visit Diagnoses Not on filedocumented in this encounter Additional Health Concerns Infection Onset Date Last Indicated Resolved Time COVID-19 Comment:Sx's started 05/23/22 tested + 05/25/22 05/25/2022 06/08/2022 10/09/2023 9:12 AM E DT documented as of this encounter Care Teams Walking Dragline Oiler Relationship Specialty Start Date End Date Kamlesh Patel MD PCP - General Internal Medicine 03/12/21 03/07/22 Jorden Kramer [address] [place] [address] PCP - General Internal Medicine 03/08/22 03/08/22 Maida Ann MD [address] [place] [address] PCP - General Internal Medicine 03/09/22 documented as of this encounter
--- OUTSIDE RECORDS SUMMARY | 2024-09-21 09:47 | XMS_ITS | Encounter Summary ---
Author Organization [facility] Address [address] [place] [address] Care Team Providers Care Life Enrichment Assistant Name Role Phone Kamlesh Patel MD Primary Care Provider Jorden Padgett Primary Care Provider [phone] Maida Ann MD Primary Care Provider + Reason for Visit * Reason Onset Date Comments Transfer Records 10/21/2021 OBGYN Encounter Details Date Type Department Care Team Description 10/21/2021 Telephone OBGYN - [place] [address] [place], [place] [id number] Jesus Jones DO Transfer Records (OBGYN) Social [...] 10/21/2021 11:45 AM EDT Fax received from [facility] requesting release of OBGYN records. Fax to [phone]. TAMI included. Fax passed to [email or web address]. Copy in flattening press operator OBGYN. documented in this encounter Plan of Treatment Not on file documented as of this encounter Visit Diagnoses Not on filedocumented in this encounter Additional Health Concerns Infection Onset Date Last Indicated Resolved Time COVID-19 Comment:Sx's started 05/23/22 tested + 05/25/22 05/25/2022 06/08/2022 10/09/2023 9:12 AM E DT documented as of this encounter Care Teams Life Enrichment Assistant Relationship Specialty Start Date End Date Kamlesh Patel MD PCP - General Internal Medicine 03/12/21 03/07/22 Jorden Kramer [address] [place] [address] PCP - General Internal Medicine 03/08/22 03/08/22 Maida Ann MD [address] [place] [address] PCP - General Internal Medicine 03/09/22 documented as of this encounter
--- OUTSIDE RECORDS SUMMARY | 2024-09-21 09:47 | XMS_ITS | Encounter Summary ---
Author Organization [facility] Address [address] [place] [address] Care Team Providers Care Repair Tech Name Role Phone Stephany Elise MD Primary Care Provider Kamlesh Sanchez MD Primary Care Provider Jorden Padgett Primary Care Provider [phone] Maida Ann MD Primary Care Provider + Reason for Visit * Reason Comments E-prescribe Rx Request Encounter Details Date Type Department Care Team Description 05/23/2020 Refill Adult Medicine [address] [id number] Kamlesh Patel MD E-prescribe Rx Request Social History Tobacco [...] Telephone Encounter - Naida Hemphill M.A. - 05/25/2020 10:31 AM EDT Lab Results Component Value Date TSH 2.81 07/11/2019 * Telephone Encounter - Eliz Gonzalez - 05/23/2020 7:41 AM EDT Patient would like script to be: E-PRESCRIBED/FAXED TO PHARMACY WHEN WAS THE PATIENT'S LAST APPOINTMENT IN ADULT MEDICINE? 02/15/2020 WHEN WAS THE LAST TIME THE PATIENT SAW THEIR PCP? Does patient have an upcoming appointment? Yes 07/01/2020 (THE MEDICATION REQUESTED IS ON THE MED [...] N/A Patients current insurance carrier is: Payor: [email or web address] FFS / Plan: [employer] / Product Type: MEDICAID RISK documented in this encounter Plan of Treatment Not on file documented as of this encounter Visit Diagnoses Not on filedocumented in this encounter Additional Health Concerns Infection Onset Date Last Indicated Resolved Time COVID-19 Comment:Sx's started 05/23/22 tested + 05/25/22 05/25/2022 06/08/2022 10/09/2023 9:12 AM E DT documented as of this encounter Care Teams Repair Tech Relationship Specialty Start Date End Date Stephany Elise MD PCP - General Internal Medicine 09/11/18 03/11/21 Kamlesh Patel MD PCP - General Internal Medicine 03/12/21 03/07/22 Jorden Kramer [address] [place] [address] PCP - General Internal Medicine 03/08/22 03/08/22 Maida Ann MD [address] [place] [address] PCP - General Internal Medicine 03/09/22 documented as of this encounter
--- OUTSIDE RECORDS SUMMARY | 2024-09-21 09:47 | XMS_ITS | Encounter Summary ---
Author Organization [facility] Address [address] [facility] [place] [address] Care Team Providers Care Assault Boat Coxswain Name Role Phone Stephany Elise MD Primary Care Provider Kamlesh Sanchez MD Primary Care Provider Jorden Padgett Primary Care Provider [phone] Maida Ann MD Primary Care Provider + Encounter Details Date Type Department Care Team Description 03/02/2020 Release of Information Medical Records [address] [place] [address] Abstract, Provider Social History Tobacco Use Types [...] EDT AUTHORIZATION TO OBTAIN RECORDS FAXED TO [facility]. documented in this encounter Plan of Treatment Not on file documented as of this encounter Visit Diagnoses Not on filedocumented in this encounter Additional Health Concerns Infection Onset Date Last Indicated Resolved Time COVID-19 Comment:Sx's started 05/23/22 tested + 05/25/22 05/25/2022 06/08/2022 10/09/2023 9:12 AM E DT documented as of this encounter Care Teams Assault Boat Coxswain Relationship Specialty Start Date End Date Stephany Elise MD PCP - General Internal Medicine 09/11/18 03/11/21 Kamlesh Patel MD PCP - General Internal Medicine 03/12/21 03/07/22 Jorden Kramer [address] [place] [phone] PCP - General Internal Medicine 03/08/22 03/08/22 Maida Ann MD [address] [place] [address] PCP - General Internal Medicine 03/09/22 documented as of this encounter
--- OUTSIDE RECORDS SUMMARY | 2024-09-21 09:47 | XMS_ITS | Encounter Summary ---
Author Organization [facility] Address [address] [place] [address] Care Team Providers Care Assembler Brazer Name Role Phone Stephany Elise MD Primary Care Provider James Bear Primary Care Provider Stephany De La Torre MD Primary Care Provider Kamlesh Sanchez MD Primary Care Provider Jorden Padgett Primary Care Provider [phone] Maida Ann MD Primary Care Provider + Reason for Visit * Reason Comments E-prescribe Rx Request Encounter Details Date Type Department Care Team Description 06/22/2016 Refill Adult Medicine [address] [address] Stephany Elise MD E-prescribe Rx Request Social [...] Telephone Encounter - Isabel Deras M.A. - 06/22/2016 10:01 AM EST Pt informed to complete labs Pt requesting refill for citalopram rx pending 14 days * Telephone Encounter - Brenda Tejada PA-C - 06/22/2016 9:40 AM EST 2 weeks given needs labs as ordered. * Telephone Encounter - Leatha Delacruz M.A. - 06/22/2016 9:36 AM EST Component Value Date NA 142 08/14/2014 K 4.0 08/14/2014 CO2 29.3 08/14/2014 CL 102 08/14/2014 BUN 12 08/14/2014 CREAT 0.6 08/14/2014 GLU 92 08/14/2014 CA 9.6 08/14/2014 GFR > 60 08/14/2014 * Telephone Encounter - Alyssa Valencia - 06/22/2016 9:30 AM EST Patient would like script to be: E-PRESCRIBED/FAXED TO PHARMACY WHEN WAS THE PATIENT'S LAST APPOINTMENT IN ADULT MEDICINE? 05/19/16 WHEN WAS THE LAST TIME THE PATIENT SAW THEIR PCP? 12/21/15 Does patient have an upcoming appointment? Yes 06/28/16 (THE MEDICATION REQUESTED IS ON THE MED LIST ABOVE) All of the medications requested were on the CURRENT MEDS list Did you check the Pharmacy information above?: YES Patient wants: 30 -day supply Is this a mail order prescription request ? NO Patients current insurance carrier is: Payor: [facility] MEDICAID / Plan: [facility] MEDICAID HMO $0 [place] / Product Type: HMO [id number] documented in this encounter Plan of Treatment Not on file documented as of this encounter Results * (ABNORMAL) BASIC METABOLIC PANEL (07/07/2016 12:49 PM EST) [facility] GLUCOSE 76 70 - 100 mg/dL 07/07/2016 5:38 PM [facility] Comment: Reference range applicable to fasting specimens only Based on recommendations from the ADA and AACE, the fasting glucose reference range has been changed to 70-100 mg/dL. ??This change is effective December 14, 2009 BUN 13 5 - 25 mg/dL 07/07/2016 5:38 PM [facility] CREAT 0.6(L) 0.7 - 1.5 mg/dL 07/07/2016 5:38 PM [facility] GFR > 60 >60 07/07/2016 6:05 PM EST [facility] Comment: If patient is -[place], multiply result by 1.21 Chronic Kidney Disease: < 60 ml/min/1.73 square meters Kidney Failure: < 15 ml/min/1.73 square meters Sodium 140 133 - 145 mEq/L 07/07/2016 5:38 PM EST [facility] Potassium 4.0 3.5 - 5.5 mEq/L 07/07/2016 5:38 PM EST [facility] Chloride 98 96 - 108 mEq/L 07/07/2016 5:38 PM EST [facility] CO2 27.1 21.0 - 32.0 mEq/L 07/07/2016 5:38 PM EST [facility] CALCIUM 9.2 8.5 - 10.5 mg/dL 07/07/2016 5:38 PM EST [facility] 07/07/2016 12:4 9 PM EST 07/07/2016 12:49 PM EST Brenda Tejada PA-C LAB Performing Organization Address City/State/[facility] Co de Phone Number [facility] [address] [facility] documented in this encounter Visit Diagnoses Diagnosis Leg swelling- Primary Swelling of limb documented in this encounter Additional Health Concerns Infection Onset Date Last Indicated Resolved Time COVID-19 Comment:Sx's started 05/23/22 tested + 05/25/22 05/25/2022 06/08/2022 10/09/2023 9:12 AM E DT documented as of this encounter Care Teams Assembler Brazer Relationship Specialty Start Date End Date Stephany Elise MD PCP - General 03/31/11 04/17/18 James Gomez PCP - General Internal Medicine 04/18/18 09/10/18 Stephany Elise MD PCP - General Internal Medicine 09/11/18 03/11/21 Kamlesh Patel MD PCP - General Internal Medicine 03/12/21 03/07/22 Jorden Kramer [address] [place] [address] PCP - General Internal Medicine 03/08/22 03/08/22 Maida Ann MD [address] [place] [address] PCP - General Internal Medicine 03/09/22 documented as of this encounter
[2024-09-21 11:47] VITALS: BP 100/62; PULSE 97; RESP 14; TEMP 36.8; O2SAT 97; BMI 47.4
--- NOTE | 2024-09-21 11:47 | MHC.OFFWIV ---
Intake Vital Signs 09/21/24 11:47 Height 5 ft 6 in Weight 294 lb BMI 47.4 BP 100/62 Blood Pressure Location Rt brachial Position Sitting Respiration 14 Pulse 97 Pulse Source Pulse Oximeter Temp 98.3 F Temp Source Oral Pulse Oximetry (%) 97 Oxygen Delivery Method Room Air Intake Visit Reasons: EP-Sinus, ear ache Intake Note: Pt is here today c/o sinus congestion and bilateral ear pain and a cough Patient Tobacco Use Status: Never used Tobacco Allergies glatiramer (copolymer 1) [Copaxone] Allergy (Unknown, Verified 09/21/24 11:54) Anaphylaxis No Known Allergies [No Known Allergies*] Allergy (Unverified 09/21/24 11:54) HPI EP-Sinus, ear ache HPI Details Patient is a 44-year-old female with history of MS who comes to the walk-in clinic complaining of persistent cough with bilateral ear fullness, after being diagnosed with influenza a few weeks ago here at the walk-in. Her chest x-ray had been negative, and she was given a trial of benzonatate for the cough. She reports that this has mildly improved, however it has persisted, with postnasal drip and sinus and ear pressure developing. No report of fever chills, nausea vomiting or diarrhea, weakness or dizziness, vertigo, hearing difficulties, discharge from the ears, shortness of breath or chest pain, or other significant associated symptoms. [facility] Social History Patient Tobacco Use Status: Never used Tobacco Review of Systems Const All systems reviewed & are unremarkable except as noted in HPI and below Physical Exam Vital Signs: Last Vital Signs Temp 98.3 F 09/21/24 11:47 Pulse 97 09/21/24 11:47 Resp 14 09/21/24 11:47 BP 100/62 09/21/24 11:47 Pulse Ox 97 09/21/24 11:47 Oxygen Delivery Method Room Air 09/21/24 11:47 BMI result Body Mass Index 47.4 Const General: cooperative, comfortable, no acute distress, alert, awake, Physically active and well groomed; No anxious, diaphoretic, ill appearing, intoxicated appearing or poor hygiene Nutritional Appearance: average body habitus Orientation/consciousness: oriented to person Limitations: no limitations HEENT Head: Yes normal to inspection, Yes normocephalic and Yes atraumatic Ears: hearing grossly normal bilaterally, external ears normal, EAC's normal and TM abnormal erythematous bilateral; not obstructed by cerumen, not perforated, not retracted and not scarred General nose exam: Normal external nose present, Normal nares present, No nasal polyps present and No nasal discharge present Face and sinus: Yes normal facial exam, Yes face symmetric and Yes sinus tenderness Mouth: Normal oral and palatal mucosa present, lip normal and tongue normal Throat: Yes uvula midline, No peritonsillar mass, Yes postnasal drainage, No uvular edema and No cobblestoning Eyes General: appearance normal, both eyes and all related structures Chest Chest palpation & inspection: normal palpation of entire chest wall Resp Effort & Inspection: normal respiratory effort, able to speak in complete sentences, no audible wheezes, no cough, no grunting, not labored, no nasal flaring, no retractions and symmetric chest movement Auscultation: clear to auscultation bilaterally, no crackles, no rales, no rhonchi, no wheezes, lung sounds not diminished and No rub present Cardio Palpation: normal PMI Rate: regular rate Rhythm: regular rhythm Heart sounds: S1 normal heart sound present and S2 normal heart sound present Skin Other: Good color, warm and dry Neuro General: oriented to person Psych Appearance: grossly normal Mental Status: mental status grossly normal Speech and movement: Normal speech and movement present Affect: normal affect Attitude: cooperative Thought process: Normal thought process present Insight: Good insight present (Psych) Judgement: Good judgement present (Psych) Assessment & Plan Assessment & Plan (1) Sinusitis: Code(s): J32.9 - Chronic sinusitis, unspecified Qualifiers: Sinusitis location: maxillary Chronicity: acute Recurrence: non-recurrent Qualified Code(s): J01.00 - Acute maxillary sinusitis, unspecified Plan Patient is a 44-year-old female with history of immunosuppression due to medication for MS, and is at the walk-in today complaining of persistent sinus pressure, ear pressure and persistent cough a few weeks after being diagnosed with influenza. She does have some injection to the bilateral TMs, so I will write her for Augmentin to cover otitis media. This should also help with the vestibular symptoms and her sinus pressure, which might be due to sinusitis. She will trial an [id number] ibuprofen, as she can not tolerate high-dose NSAIDs or steroids due to kidney issue. She will monitor symptoms closely him off of the persist or worsen, and will go to the emergency department as needed. Medications: New amoxicillin-pot clavulanate 875-125 mg 1 tab PO BID 14 tabs 0RF Coding Level of Care Code Est Pt Level 4 (52136) Diagnoses Acute non-recurrent maxillary sinusitis J01.00 Sinusitis location: maxillary Chronicity: acute Recurrence: non-recurrent
== END 2024-09-21 12:46 | disposition home or self-care (01) ==
LOC: HO.HMCWIC 09:41
PROVIDERS: Visit Provider Physician Assistant Medical
DX: J01.00 Acute maxillary sinusitis, unspecified (principal)